=== PATIENT | female | born 1960 | race Caucasian/White ===

== ENCOUNTER 2024-10-07 17:59 | Day surgery (SDC) | payer MEDICARE, SELFPAY ==
--- OUTSIDE RECORDS SUMMARY | 2024-10-07 16:20 | XMS_ITS | Encounter Summary ---
Author Organization [facility] Address [address] [place] [address] Care Team Providers Care Director Of Residence Life Name Role Phone Consuelo Rand Carl POTTER Primary Care Provider Reason for Visit * Reason Comments Chest Pain Encounter Details Date Type Department Care Team (Late st Contact Info) Description 10/07/2024 4:20 PM CDT - 10/07/2024 5:25 PM CDT Emergency [facility] Emergency Medicine [address] [place] [phone] Elmer Botello DO [address] [place] [address] ST elevation myocardial infarction (STEMI), unspecified artery (CMS/HCC) (Primary Dx) Discharge Disposition: Acute Care Hospital Social History Tobacco Use Types Packs/Day Years Used Date Smoking Tobacco: Never Passive Smoke Exposure: Never Smokeless Tobacco: Never Alcohol Use Standard Drinks/Week Comments No 0 (1 standard drink = 0.6 oz pur e alcohol) Financial Resource Strain Answer Date R ecorded How hard is it for you to pa y for the very basics like food, housing, medical care, and heating? Not very hard 09/25/2021 Food Insecurity Answer Date Recorded In the past 12 months, have you worried that your food would run out before you had money to buy more? Never true 09/25/2021 In the past 12 months, did y ou run out of food and didn't have money to buy more? Never true 09/25/2021 Transportation Needs Answer Date Record ed In the past 12 months, has l ack of transportation kept you from medical appointments or from getting medications? No 09/25/2021 Lack of Transportation (Non-Medical) Not on file 09/25/2021 Feeling Safe Answer Date Recorded Are you in a relationship wi th someone who hurts you emotionally and/or physically? 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 Gender Identity Not on file Sexual Orientation Not on file documented as of this encounter Last Filed Vital Signs Vital Sign Reading Time Taken Comments Blood Pressure 157/86 10/07/2024 4:30 PM CDT Pulse 63 10/07/2024 4:30 PM CDT Temperature 36.1 C (96.9 F) 10/07/2024 2:54 PM CDT Respiratory Rate 21 10/07/2024 4:30 PM CDT Oxygen Saturation 95% 10/07/2024 4:30 PM CDT Inhaled Oxygen Concentration - - Weight 91.6 kg (202 lb) 10/07/2024 2:54 PM CDT Height 165.1 cm (5' 5 ) 10/07/2024 2:54 PM CDT Body Mass Index 33.61 10/07/2024 2:54 PM CDT documented in this encounter Medications at Time of Discharge dilTIAZem (CARDIZEM CD) 360 mg Controlled Delivery 24 hour capsule TAKE ONE CAPSULE (360 MG) BY MOUTH DAILY. 90 Capsule 4 09/21/2024 rosuvastatin (CRESTOR) 5 mg tabletIndications:Mi xed hyperlipidemia Take 1 Tablet (5 mg) by mouth daily. 90 Tablet 4 09/21/2024 hydroCHLOROthiazide 25 mg tabletIndications:Es sential hypertension Take 1 Tablet (25 mg) by mouth daily. 90 Tablet 4 09/21/2024 mupirocin (BACTROBAN) 2 % OintmentIndications: Acute paronychia of toe, right Apply to affected area daily. 30 Gram 07/15/2024 hydrOXYzine HCL (ATARAX) 10 mg tabletIndications:Co ntact dermatitis due to poison talia Take 1 Tablet (10 mg) by mouth 3 times daily as needed for Itching. 30 Tablet 09/30/2023 aspirin (ECOTRIN EC) 81 mg Tablet, Delayed Release (E.C.) Take 81 mg by mouth daily. TURMERIC ORAL Take by mouth. 11/01/2019 Cranberry 500 mg Capsule Take 1 Cap by mouth daily. 11/21/2014 documented as of this encounter ED Notes * Rita Dutton RN - 10/07/2024 5:19 PM CDT Report given to EMS. * Tsering Alvarez RN - 10/07/2024 5:12 PM CDT Dispatch notified of patient transfer at this time. * Sherry Crawford RCP - 10/07/2024 4:45 PM CDT EKG completed. Results given to Dr. Botello and scanned into [employer]. * Rita Dutton RN - 10/07/2024 3:25 PM CDT Patient arrived to the ED via private vehicle complaining of chest pain that radiates to her left jaw and left arm pain. Patient states her pain started at 1100 today and it has not gotten better. Patient states she has no heart history but does have hypertension. Patient at bedside during this triage. * Sherry Crawford RCP - 10/07/2024 2:54 PM CDT EKG completed. Results given to Dr. Botello and scanned into [employer]. * Elmer Botello DO - 10/07/2024 2:47 PM CDT HISTORY OF PRESENT ILLNESS 64-year-old female female presents with onset of chest pain radiating to left jaw and left arm onset 11 AM this morning. She is also admits some chest pressure. She denies any nausea or vomiting. Shedoes have a history of hypertension hyperlipidemia and history of MRSA. History provided by: The patient and a significant other Chest Pain PAST MEDICAL HISTORY REVIEWED MEDICAL: Patient has a past medical history of Depression, Generalized headaches, HTN (hypertension) (2007),Joint pain, Migraines, MRSA (methicillin resistant staph aureus) culture positive (11/14/2015), and Night sweats. SURGICAL: Patient has a past surgical history that includes cholecystectomy (1999); surgical other; hysterectomy (1999); and core needle breast biopsy (Bilateral, 07/02/2019). ALLERGIES Patient has no known allergies. PHYSICAL EXAM INITIAL VS BP: (!) 163/87 (10/07/24 1454), Heart Rate: 66 bpm (10/07/24 1454), Resp: 20 (10/07/24 1454), Pulse: 63 (10/07/24 1630), Temp: 96.9 ??F (36.1 ??C) (10/07/24 1454), Temp src: Temporal (10/07/24 1454),SpO2: 99 % (10/07/24 1454), Height: 5' 5 (165.1 cm) (10/07/24 1454), Weight: 91.6 kg (202 lb) (10/07/24 1454), BMI (Calculated): (!) 33.6 (10/07/24 145) No LMP recorded. Patient has had a hysterectomy. Physical Exam Vitals and nursing note reviewed. Constitutional: General: She is not in acute distress. Appearance: Normal appearance. She is normal weight. She is not ill-appearing, toxic-appearing or diaphoretic. HENT: Head: Normocephalic and atraumatic. Right Ear: External ear normal. Left Ear: External ear normal. Nose: Nose normal. Mouth/Throat: Mouth: Mucous membranes are moist. Eyes: General: No scleral icterus. Extraocular Movements: Extraocular movements intact. Conjunctiva/sclera: Conjunctivae normal. Cardiovascular: Rate and Rhythm: Normal rate and regular rhythm. Pulses: Normal pulses. Heart sounds: Normal heart sounds. Pulmonary: Effort: Pulmonary effort is normal. Breath sounds: Normal breath sounds. No stridor. No wheezing. Musculoskeletal: General: No deformity. Normal range of motion. Cervical back: Normal range of motion. Right lower leg: No edema. Left lower leg: No edema. Skin: General: Skin is warm and dry. Capillary Refill: Capillary refill takes less than 2 seconds. Findings: No bruising or erythema. Neurological: General: No focal deficit present. Mental Status: She is alert and oriented to person, place, and time. Psychiatric: Mood and Affect: Mood normal. Behavior: Behavior normal. DIAGNOSTICS LAB: CBC WITH DIFFERENTIAL - Abnormal Result Value WBC 8.9 RBC 4.66 HEMOGLOBIN 14.0 HEMATOCRIT 42.5 MCV 91.2 MCH 30.0 MCHC 32.9 RDW 13.2 RDW-STDEV 44.3 PLATELETS 262 MPV 9.6 (*) NEUTROPHILS 78 (*) LYMPHOCYTES 15 (*) MONOCYTES 6 EOSINOPHILS 1 BASOPHILS 1 IMMATURE GRANULOCYTES 0 NEUTROPHIL ABSOLUTE 6.93 (*) LYMPHOCYTE ABSOLUTE 1.33 MONOCYTE ABSOLUTE 0.49 (*) EOSINOPHIL ABSOLUTE 0.05 BASOPHILS ABSOLUTE 0.09 (*) IMMATURE GRANULOCYTES ABSOLUTE 0.03 COMPREHENSIVE METABOLIC PANEL - Abnormal SODIUM 139 POTASSIUM 3.9 CHLORIDE 102 CO2 24 CALCIUM 9.6 BUN 15 CREATININE 0.80 GLUCOSE 129 (*) TOTAL PROTEIN 7.4 ALBUMIN 4.3 BILIRUBIN TOTAL 0.4 ALKALINE PHOSPHATASE 93 AST 26 ALT 15 GFR >60 ANION GAP 13 TROPONIN BASELINE, 5TH GEN - Abnormal TROPONIN T, BASELINE 5TH GEN 383 (*) BRAIN NATRIURETIC PEPTIDE, BNP OR PROBNP - Abnormal PROBNP, N TERMINAL 578 (*) PT AND APTT - Normal PROTIME 13.0 INR 1.0 PTT 25.7 CBC WITH DIFFERENTIAL BASIC METABOLIC PANEL TROPONIN 2 HR, 5TH GEN PTT RADIOLOGY: XR CHEST PA OR AP 1 VW Radiologist Impression Impression: No evidence of infiltrates. EKG: PROCEDURES Procedures MEDICAL DECISION MAKING AND PLAN OF CARE Medical Decision Making 64-year-old female presents today with acute onset of chest pain with radiation to left jaw and armat approximately 11 AM. Symptoms concerning for ACS. Lab work with elevated baseline troponin at 383, elevated proBNP greater than 500, initial EKG without ST segment changes, on repeat ST segment changes present. Discussed transfer with cardiology at [facility]. Excepted for transfer, Dr. Charles cardiologyand Dr. Iverson ED to ED Amount and/or Complexity of Data Reviewed Labs: ordered. Radiology: ordered. ECG/medicine tests: ordered. Risk OTC drugs. Prescription drug management. MDM Consults: cardiology Time help desk engineer paged: 10/07/2024 4:55 PM Name of help desk engineer: Araceli Discussion with help desk engineer: Accepted for ED to ED with transfer to civil laboratory technician. Medications Administered During the ED Stay from 10/07/2024 1447 to 10/07/2024 1716 Date/Time Order Dose Route Action 10/07/2024 1652 CDT aspirin (WAYNE CHEWABLE) chewable tablet 324 mg 324 mg Oral Given 10/07/2024 1652 CDT heparin injection 1,500 Units 1,500 Units IV Given . New Prescriptions for this Encounter LAST VS BP: (!) 157/86 (10/07/24 1630), Heart Rate: 64 bpm (10/07/24 1630), Resp: 21 (10/07/24 1630), Pulse: 63 (10/07/24 1630), Temp: 96.9 ??F (36.1 ??C) (10/07/24 1454), Temp src: Temporal (10/07/24 1454),SpO2: 95 % (10/07/24 1630) CLINICAL IMPRESSION Final diagnoses: [I21.3] ST elevation myocardial infarction (STEMI), unspecified artery (CMS/HCC) (Primary) DISPOSITION, EDUCATION AND MEDICATION RECONCILIATION Medications reconciled. See after visit summary for patient education on discharged patients. ED Disposition ED Disposition Transfer Condition Stable User Elmer Botello DO Date/Time Leticia Oct 07, 2024 5:06 PM Comment -- ATTESTATION STATEMENTS documented in this encounter Miscellaneous Notes * Treatment Plan - Jake Schaefer, PHARMACIST - 10/07/2024 5:22 PM CDT [facility] Adult Heparin PTT Monitoring Protocol [facility] ORDERS ARE ENTERED ???PER PROTOCOL?? Nursing Orders: Heparin must be hung as primary IV on dedicated IV site, unless discussed with physician and exception is authorized Obtain an actual weight, not stated weight, for pharmacy verification Do not give IM injections unless credentialed prescriber is alerted and chooses to proceed. Exception: Patient may receive vaccinations without contacting provider. RN to hold pressure to site post administration for 2 minutes Call credentialed prescriber for any evidence of hematoma, decrease in hemoglobin of 2 gram/dL or more, or with any acute change in mental status When programming the smart pump, refer to weight in eMAR order (this may not correlate with patient's current weight) Verify weight in eMAR order matches weight in smartpump Enter actual volume infused into flowsheet directly from smart pump upon clearing the pump volume Laboratory Orders: Baseline: PTT and CBC without differential if not obtained in the last 72 hours before starting IV Heparin Infusion monitoring: Timed PTT every 6 hours after the initiation of infusion, change in rate or bolus until 2 consecutive PTT are in therapeutic range PTT monitoring should be used instead of Anti-xa monitoring for the following: Facility only has PTT lab monitoring capabilities Patients who have received a Xa inhibitor Direct Oral Anticoagulant (DOAC) medication (rivaroxaban,apixaban, edoxaban), therapeutic Enoxaparin, or Fondaparinux within the last 48 hours Daily once stable: PTT daily while on heparin once stable Minimum every 3 days: CBC without differential drawn at minimum of every 3 days while on heparin Medication Orders: Discontinue ALL other orders for subcutaneous, oral or IV anticoagulants, for example but not limited to: enoxaparin (LOVENOX), or fondaparinux (ARIXTRA) or oral anticoagulants dabigatran (PRADAXA), apixaban (ELIQUIS), edoxaban (SAVAYSA) or rivaroxaban (XARELTO). This protocol is not recommended for use with continuous alteplase infusions. Contact provider for additional orders. Pharmacist to confirm indication to ensure correct protocol table is followed, if unclear from the physician order or via chart review Pharmacist to verify heparin rate changes based on lab results in the protocol tables below. Pharmacist may update the order and MAR to match the current infusion rate. Dosing Weight: Obtain using a scale, NOT stated weight order-specific heparin dosing weight to be calculated by pharmacist. If weight <= 100 kg, ACTUAL body weight will be used to perform dose calculations If weight exceeds 100 kg, an ADJUSTED body weight will be used to perform dose calculations Initial dosing weight to be used for heparin infusion for the duration of therapy. Caution should be used by the RN to observe that this is the weight programmed in the smart pump. DVT/PE Heparin Infusion (usual indication for VTE: PE/DVT) Per provider order - bolus or no bolus Adjusted body weight used for pts >100 kg Initial Bolus Dose 80 units/kg (MAX 10,000 units) Initial Infusion 18 units/kg/hour PTT Bolus (if boluses are authorized by physician per infusion order) Hold Infusion IV infusion Change Next Level Less than 45 60 units/kg 0 min Increase heparin dose by 3 units/kg/hr 6 hours 45-54 30 units/kg 0 min Increase heparin dose by 2 units/kg/hr 6 hours 54.1-93 NO CHANGE Every 6 hours x 2 then every AM 93.1-103 none 0 min Decrease heparin dose by 1 units/kg/hr 6 hours 103.1-112 none 30 min Decrease heparin dose by 2 units/kg/hr 6 hours Greater than 112 none 60 min Decrease heparin dose by 3 units/kg/hr 6 hours Cardiac Heparin Infusion (usual indication: Atrial fibrillation, mechanical valves, ACS, high bleedrisk) Per provider order - bolus or no bolus Adjusted body weight used for pts >100 kg Initial Bolus Dose Atrial fibrillation, mechanical valves, high bleed risk: 60 units/kg (MAX 7500 units) ACS: 60 units/kg (MAX 4000 units) Initial Infusion Atrial fibrillation, mechanical valves, high bleed risk: 15 units/kg/hour ACS: 12 units/kg/hour (MAX 1000 units/hour) PTT Bolus (if boluses are authorized by physician per infusion order) Hold Infusion IV infusion Change Next Level Less than 45 30 units/kg 0 min Increase heparin dose by 2 units/kg/hr 6 hours 45-54 15 units/kg 0 min Increase heparin dose by 1 units/kg/hr 6 hours 54.1-84 NO CHANGE Every 6 hours x 2 then every AM 84.1-93 none 0 min Decrease heparin dose by 1 units/kg/hr 6 hours 93.1-112 none 30 min Decrease heparin dose by 2 units/kg/hr 6 hours Greater than 112 none 60 min Decrease heparin dose by 3 units/kg/hr 6 hours documented in this encounter Plan of Treatment Upcoming Encounters Date Type Department Care Team (Late st Contact Info) Description 09/21/2025 8:40 AM CDT Office Visit [facility] [address] [place] [phone] Consuelo Rand, DO [address] [facility] [place] [phone] Scheduled Orders Name Type Priority Associated Diagnoses Order Schedule PULSE OXIMETRY, CONTINUOUS Respiratory Care Routine Continuous unti l discontinued starting 10/07/2024 CBC WITH DIFFERENTIAL Lab Routine ONE TIME COLLECT NOW for 1 Occurrences starting 10/07/2024 until 10/07/2024 BASIC METABOLIC PANEL Lab Routine ONE TIME COLLECT NOW for 1 Occurrences starting 10/07/2024 until 10/07/2024 TROPONIN 6 HR, 5TH GEN Lab Timed Study ONE TIME for 1 Occurrences starting 10/07/2024 until 10/07/2024 TROPONIN 2 HR, 5TH GEN Lab Timed Study ONE TIME for 1 Occurrences starting 10/07/2024 until 10/07/2024 PTT Lab Routine ONE TIME COLLE CT NOW for 1 Occurrences starting 10/07/2024 until 10/07/2024 documented as of this encounter Procedures Procedure Name Priority Date/Time Associated Diagnosis Comments XR CHEST PA OR AP 1 VW Stat 4:52 PM CDT TROPONIN BASELINE, 5TH GEN Stat 10/07/2024 3:45 PM CDT PT AND APTT Stat 10/07/2024 3:45 PM CDT CBC WITH DIFFERENTIAL Stat 10/07/2024 3:45 PM CDT BRAIN NATRIURETIC PEPTIDE, BNP OR PROBNP Stat 10/07/2024 3:45 PM CDT COMPREHENSIVE METABOLIC PANEL Stat 10/07/2024 3:45 PM CDT documented in this encounter Results * XR CHEST PA OR AP 1 VW (10/07/2024 4:52 PM CDT) Anatomical Region Laterality Modality Chest Computed Radiogr aphy 10/07/2024 4:52 PM CDT Impressions 10/07/2024 4:57 PM CDT Impression: No evidence of infiltrates. Narrative 10/07/2024 4:57 PM CDT Exam: XR CHEST PA OR AP 1 VW Date/Time of Exam: 10/07/2024 4:52 PM Reason For Exam: Chest Pain Diagnosis: See Reason for Exam The heart size is normal. The lungs are clear. No pneumothorax is seen. Procedure Note Rolando Gaspar MD - 10/07/2024 Exam: XR CHEST PA OR AP 1 VW Date/Time of Exam: 10/07/2024 4:52 PM Reason For Exam: Chest Pain Diagnosis: See Reason for Exam The heart size is normal. The lungs are clear. No pneumothorax is seen. Impression: No evidence of infiltrates. [employer] [facility] DIAGNOSTIC IMAGING ORDERABLES Final Result * (ABNORMAL) BRAIN NATRIURETIC PEPTIDE, BNP OR PROBNP (10/07/2024 3:45 PM CDT) PROBNP, N TERMINAL 578(H) 0 - 125 pg/mL 10/07/2024 4:39 PM CDT [facility] Comment: INTERPRETIVE COMMENT based on diagnosis: Diagnostic NT pro-BNP cutoffs for Heart Failure in the absence of renal failure is suggested for the following ranges <75 years: <125 pg/mL >=75 years: <450 pg/mL Exclusionary rule out cut-point for Acute Decompensated Heart Failure(ADHF) All ages: <300 pg/mL Diagnostic NT pro-BNP cutoffs for Acute Decompensated Heart Failure(ADHF) in the absence of renal failure is suggested for the following ages <50 years: > 450 pg/mL 50-75 years: > 900 pg/mL >75 years: >1800 pg/mL Blood BLOOD SPECIMEN / Unknown Collection / Unknown 10/07/2024 3:45 PM CDT 10/07/2024 4:00 PM CDT [employer] [facility] CHEMISTRY ORDERABLES Final Re sult [facility] CLIA # [id number] [address] [place] [id number] * PT AND APTT (10/07/2024 3:45 PM CDT) PROTIME 13.0 12.1 - 14.3 Seconds 10/07/2024 4:34 PM CDT [facility] INR 1.0 0.9 - 1.1 10/07/2024 4:34 PM CDT [facility] PTT 25.7 25.1 - 35.4 seconds 10/07/2024 4:34 PM CDT [facility] Blood BLOOD SPECIMEN / Unknown Collection / Unknown 10/07/2024 3:45 PM CDT 10/07/2024 4:25 PM CDT us Elmer Botello DO HEMATOLOGY ORDERABLES Final R esult Performing Organization Address [facility]/ZIP Co de Phone Number [facility] CLIA # [id number] [address] [place] [id number] * (ABNORMAL) TROPONIN BASELINE, 5TH GEN (10/07/2024 3:45 PM CDT) [facility] TROPONIN T, BASELINE 5TH GEN 383(HH) <=10 ng/L 10/07/2024 4:18 PM CDT [facility] Blood BLOOD SPECIMEN / Unknown Collection / Unknown 10/07/2024 3:45 PM CDT 10/07/2024 4:00 PM CDT Narrative [facility] - 10/07/2024 4:18 PM CDT Troponin elevated. us Elmer Botello DO CHEMISTRY ORDERABLES Final Re sult [facility] CLIA # [id number] [address] [place] [id number] * (ABNORMAL) COMPREHENSIVE METABOLIC PANEL (10/07/2024 3:45 PM T) SODIUM 139 136 - 145 mmol/L 10/07/2024 4:17 PM [facility] POTASSIUM 3.9 3.5 - 5.1 mmol/L 10/07/2024 4:17 PM [facility] CHLORIDE 102 98 - 107 mmol/L 10/07/2024 4:17 PM [facility] CO2 24 22 - 29 mmol/L 10/07/2024 4:17 PM [facility] CALCIUM 9.6 8.8 - 10.2 mg/dL 10/07/2024 4:17 PM [facility] BUN 15 8 - 23 mg/dL 10/07/2024 4:17 PM [facility] CREATININE 0.80 0.51 - 0.95 mg/dL 10/07/2024 4:17 PM [facility] GLUCOSE 129(H) 74 - 99 mg/dL 10/07/2024 4:17 PM [facility] TOTAL PROTEIN 7.4 6.6 - 8.7 g/dL 10/07/2024 4:17 PM [facility] ALBUMIN 4.3 3.5 - 5.2 g/dL 10/07/2024 4:17 PM [facility] BILIRUBIN TOTAL 0.4 0.0 - 1.2 mg/dL 10/07/2024 4:17 PM [facility] ALKALINE PHOSPHATASE 93 35 - 104 U/L 10/07/2024 4:17 PM [facility] AST 26 0 - 35 U/L 10/07/2024 4:17 PM [facility] ALT 15 0 - 35 U/L 10/07/2024 4:17 PM [facility] GFR >60 >=60 mL/min/1.7 3 sq meter 10/07/2024 4:17 PM [facility] Comment:eGFR calculated with 2020 CKD-EPI equation. Vegetarian diet, extremely high or low muscle mass, and may affect results. Cystatin C with Glomerular Filtration Rate is a suitable alternative for these patients. ANION GAP 13 5 - 20 mmol/L 10/07/2024 4:17 PM CDT [facility] Blood BLOOD SPECIMEN / Unknown Collection / Unknown 10/07/2024 3:45 PM CDT 10/07/2024 4:00 PM CDT us Elmer Botello DO CHEMISTRY ORDERABLES Final Re sult [facility] CLIA # [id number] [address] [place] [address] * (ABNORMAL) CBC WITH DIFFERENTIAL (10/07/2024 3:45 PM CDT) WBC 8.9 4.0 - 10.0 K/uL 10/07/2024 4:03 PM [facility] RBC 4.66 3.93 - 5.22 M/uL 10/07/2024 4:03 PM [facility] HEMOGLOBIN 14.0 11.2 - 15.7 g/dL 10/07/2024 4:03 PM [facility] HEMATOCRIT 42.5 34.1 - 44.9 % 10/07/2024 4:03 PM [facility] MCV 91.2 79.4 - 94.8 fL 10/07/2024 4:03 PM [facility] MCH 30.0 25.6 - 32.2 pg 10/07/2024 4:03 PM [facility] MCHC 32.9 32.2 - 35.5 g/dL 10/07/2024 4:03 PM [facility] RDW 13.2 11.0 - 14.5 % 10/07/2024 4:03 PM [facility] RDW-STDEV 44.3 36.9 - 56.9 fL 10/07/2024 4:03 PM [facility] PLATELETS 262 163 - 337 K/uL 10/07/2024 4:03 PM [facility] MPV 9.6(L) 10.0 - 14.8 fL 10/07/2024 4:03 PM CDT [facility] NEUTROPHILS 78(H) 34 - 71 % 10/07/2024 4:03 PM [facility] LYMPHOCYTES 15(L) 19 - 52 % 10/07/2024 4:03 PM [facility] MONOCYTES 6 5 - 13 % 10/07/2024 4:03 PM T [facility] EOSINOPHILS 1 1 - 6 % 10/07/2024 4:03 PM T [facility] BASOPHILS 1 0 - 1 % 10/07/2024 4:03 PM CDT [facility] IMMATURE GRANULOCYTES 0 % 10/07/2024 4:03 PM [facility] NEUTROPHIL ABSOLUTE 6.93(H) 1.56 - 6.13 K/uL 10/07/2024 4:03 PM T [facility] LYMPHOCYTE ABSOLUTE 1.33 1.20 - 3.40 K/uL 10/07/2024 4:03 PM T [facility] MONOCYTE ABSOLUTE 0.49(H) 0.24 - 0.36 K/uL 10/07/2024 4:03 PM CDT [facility] EOSINOPHIL ABSOLUTE 0.05 0.04 - 0.36 K/uL 10/07/2024 4:03 PM [facility] BASOPHILS ABSOLUTE 0.09(H) 0.01 - 0.08 K/uL 10/07/2024 4:03 PM [facility] IMMATURE GRANULOCYTES ABSOLUTE 0.03 K/uL 10/07/2024 4:03 PM [facility] Blood BLOOD SPECIMEN / Unknown Collection / Unknown 10/07/2024 3:45 PM CDT 10/07/2024 4:00 PM CDT us Elmer Botello DO HEMATOLOGY ORDERABLES Final R esult [facility] CLIA # [id number] [address] [place] [id number] documented in this encounter Visit Diagnoses Diagnosis ST elevation myocardial infarction (STEMI), unspecified artery ([facility])- Primary documented in this encounter Administered Medications Active Administered Medications - up to 3 most recent administrations Medication Order MAR Action Action Date Dose Rate Site heparin in 0.45% NaCl 25,000 unit/250 mL infusion 10.9 Units/kg/hr 91.6 kg (9.9844 mL/hr, rounded to 10 mL/hr), IV, TITRATE, Starting on Leticia 10/07/24 at 1730, Until Discontinued, Indication: ACS/STEMI, Dosing by: PER PROTOCOL: Delegate to facility protocol per indication, Re-bolus within Protocol? No, titrate infusion ONLY New Bag 10/07/2024 5:26 PM CDT 10.9 Units/kg/hr 10 mL/hr Inactive Administered Medications - up to 3 most recent administrations Medication Order MAR Action Action Date Dose Rate Site aspirin (WAYNE CHEWABLE) chewable tablet 324 mg 324 mg, Oral, ONE TIME ONLY, 1 dose, On Leticia 10/07/24 at 1630, Routine Given 10/07/2024 4:52 PM CDT 324 mg clopidogreL (PLAVIX) tablet 600 mg 600 mg, Oral, ONE TIME ONLY, 1 dose, On Leticia 10/07/24 at 1715, Routine Given 10/07/2024 5:19 PM CDT 600 mg heparin injection 1,500 Units 1,500 Units (rounded from 1,374 Units = 15 Units/kg 91.6 kg), IV, ONE TIME ONLY, 1 dose, On Leticia 10/07/24 at 1700, Routine Given 10/07/2024 4:52 PM CDT 1,500 Units documented in this encounter Active and Recently Administered Medications Times are shown in CDT. Scheduled Medication Order 10/05/2024 10/06/2024 10/07/2024 aspirin (WAYNE CHEWABLE) chewable tablet 324 mg (COMPLETED) 324 mg, Oral, ONE TIME ONLY, 1 dose, On Leticia 10/07/24 at 1630, Routine 1652 (Given - Provid er: Rita Dutton RN) clopidogreL (PLAVIX) tablet 600 mg (COMPLETED) 600 mg, Oral, ONE TIME ONLY, 1 dose, On Leticia 10/07/24 at 1715, Routine 1719 (Given - Provid er: Rhonda Giles RN) heparin injection 1,500 Units (COMPLETED) 1,500 Units (rounded from 1,374 Units = 15 Units/kg 91.6 kg), IV, ONE TIME ONLY, 1 dose, On Leticia 10/07/24 at 1700, Routine 1652 (Given - Provid er: Rita Dutton, DALILA) Continuous Medication Order 10/05/2024 10/06/2024 10/07/2024 heparin in 0.45% NaCl 25,000 unit/250 mL infusion 10.9 Units/kg/hr 91.6 kg (9.9844 mL/hr, rounded to 10 mL/hr), IV, TITRATE, Starting on Leticia 10/07/24 at 1730, Until Discontinued, Indication: ACS/STEMI, Dosing by: PER PROTOCOL: Delegate to facility protocol per indication, Re-bolus within Protocol? No, titrate infusion ONLY 1726 (New Bag - Prov ider: Rhonda Giles RN) documented in this encounter Care Teams Director Of Residence Life Relationship Specialty Start Date End Date Consuelo Rand DO [address] [place] [address] PCP - General 07/19/20 documented as of this encounter
--- OUTSIDE RECORDS SUMMARY | 2024-10-07 16:20 | XMS_ITS | Encounter Summary ---
Author Organization [facility] Address [address] [place] [address] Care Team Providers Care Environmental Geologist Name Role Phone Keyona, Consuelo Carl POTTER Primary Care Provider [phone]- [phone] Reason for Visit * Reason Comments Chest Pain Encounter Details Date Type Department Care Team (Late st Contact Info) Description 10/07/2024 4:20 PM CDT - Present Emergency [facility] Emergency Medicine [address] [place] [id number] Elmer Botello DO [address] [place] [address] ST elevation myocardial infarction (STEMI), unspecified artery (CMS/HCC) (Primary Dx) Social History Tobacco Use Types Packs/Day Years [...] on file 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 Results given to Dr. Botello and scanned into [employer]. * Rita Dutton RN - 10/07/2024 3:25 [...] given to Dr. Botello and scanned into [employer]Who. documented in this encounter Plan of Treatment Upcoming Encounters Date Type Department Care Team (Late st Contact Info) Description 09/21/2025 8:40 AM CDT Office Visit [facility] [address] [place] [address] Consuelo Rand, DO [address] [place] [phone] Scheduled Orders Name Type Priority Associated Diagnoses [...] 10/07/2024 documented as of this encounter Procedures * The patient is currently admitted. The information in this section might not be complete until the patient is discharged. Procedure Name Priority Date/Time Associated Diagnosis Comments [...] is seen. Impression: No evidence of infiltrates. Elmer Botello DO DIAGNOSTIC IMAGING ORDERABLES Final Result * (ABNORMAL) BRAIN NATRIURETIC PEPTIDE, BNP OR PROBNP (10/07/2024 3:45 PM CDT) PROBNP, N TERMINAL 578(H) 0 - 125 pg/mL 10/07/2024 4:39 PM CDT [facility] Comment: INTERPRETIVE COMMENT based on diagnosis: [...] Botello DO CHEMISTRY ORDERABLES Final Re sult [facility] CLIA # [id number] [address] [place] [address] * PT AND APTT (10/07/2024 3:45 PM CDT) PROTIME 13.0 12.1 - 14.3 Seconds 10/07/2024 4:34 PM CDT [facility] INR 1.0 0.9 - 1.1 10/07/2024 4:34 PM CDT [facility] PTT 25.7 25.1 - 35.4 seconds 10/07/2024 4:34 PM CDT [facility] Blood BLOOD SPECIMEN / Unknown Collection / Unknown 10/07/2024 3:45 PM CDT 10/07/2024 4:25 PM CDT us Elmer Botello DO HEMATOLOGY ORDERABLES Final R esult Performing Organization Address City/[facility]/ZIP Co de Phone Number [facility] CLIA # [id number] [address] [place] [phone] * (ABNORMAL) TROPONIN BASELINE, 5TH GEN (10/07/2024 3:45 PM CDT) TROPONIN T, BASELINE 5TH GEN 383(HH) <=10 ng/L 10/07/2024 4:18 PM CDT [facility] Blood BLOOD SPECIMEN / Unknown Collection / Unknown 10/07/2024 3:45 PM CDT 10/07/2024 4:00 PM CDT Narrative [facility] - 10/07/2024 4:18 PM CDT Troponin elevated. us Elmer Botello DO CHEMISTRY ORDERABLES Final Re sult [facility] CLIA # [id number] [address] [place] [phone] * (ABNORMAL) COMPREHENSIVE METABOLIC PANEL (10/07/2024 3:45 PM CDT) SODIUM 139 136 - 145 mmol/L 10/07/2024 4:17 PM [facility] POTASSIUM 3.9 3.5 - 5.1 mmol/L 10/07/2024 4:17 PM [facility] CHLORIDE 102 98 - 107 mmol/L 10/07/2024 4:17 PM [facility] CO2 24 22 - 29 mmol/L 10/07/2024 4:17 PM [facility] CALCIUM 9.6 8.8 - 10.2 mg/dL 10/07/2024 4:17 PM [facility] BUN 15 8 - 23 mg/dL 10/07/2024 4:17 PM [facility] CREATININE 0.80 0.51 - 0.95 mg/dL 10/07/2024 4:17 PM [facility] GLUCOSE 129(H) 74 - 99 mg/dL 10/07/2024 4:17 PM [facility] TOTAL PROTEIN 7.4 6.6 - 8.7 g/dL 10/07/2024 4:17 PM [facility] ALBUMIN 4.3 3.5 - 5.2 g/dL 10/07/2024 4:17 PM [facility] BILIRUBIN TOTAL 0.4 0.0 - 1.2 mg/dL 10/07/2024 4:17 PM [facility] ALKALINE PHOSPHATASE 93 35 - 104 U/L 10/07/2024 4:17 PM [facility] AST 26 0 - 35 U/L 10/07/2024 4:17 PM [facility] ALT 15 0 - 35 U/L 10/07/2024 4:17 PM [facility] GFR >60 >=60 mL/min/1.7 3 sq meter 10/07/2024 4:17 PM [facility] Comment:eGFR calculated with 2020 CKD-EPI equation. Vegetarian diet, extremely high or low muscle mass, and may affect results. Cystatin C with Glomerular Filtration Rate is a suitable alternative for these patients. ANION GAP 13 5 - 20 mmol/L 10/07/2024 4:17 PM [facility] Blood BLOOD SPECIMEN / Unknown Collection / Unknown 10/07/2024 3:45 PM CDT 10/07/2024 4:00 PM CDT us Elmer Botello DO CHEMISTRY ORDERABLES Final Re sult [facility] CLIA # [id number] [address] [place] [phone] * (ABNORMAL) CBC WITH DIFFERENTIAL (10/07/2024 3:45 PM CDT) WBC 8.9 4.0 - 10.0 K/uL 10/07/2024 4:03 PM [facility] RBC 4.66 3.93 - 5.22 M/uL 10/07/2024 4:03 PM [facility] HEMOGLOBIN 14.0 11.2 - 15.7 g/dL 10/07/2024 4:03 PM [facility] HEMATOCRIT 42.5 34.1 - 44.9 % 10/07/2024 4:03 PM [facility] MCV 91.2 79.4 - 94.8 fL 10/07/2024 4:03 PM [facility] MCH 30.0 25.6 - 32.2 pg 10/07/2024 4:03 PM [facility] MCHC 32.9 32.2 - 35.5 g/dL 10/07/2024 4:03 PM [facility] RDW 13.2 11.0 - 14.5 % 10/07/2024 4:03 PM [facility] RDW-STDEV 44.3 36.9 - 56.9 fL 10/07/2024 4:03 PM [facility] PLATELETS 262 163 - 337 K/uL 10/07/2024 4:03 PM [facility] MPV 9.6(L) 10.0 - 14.8 fL 10/07/2024 4:03 PM [facility] NEUTROPHILS 78(H) 34 - 71 % 10/07/2024 4:03 PM [facility] LYMPHOCYTES 15(L) 19 - 52 % 10/07/2024 4:03 PM [facility] MONOCYTES 6 5 - 13 % 10/07/2024 4:03 PM [facility] EOSINOPHILS 1 1 - 6 % 10/07/2024 4:03 PM [facility] BASOPHILS 1 0 - 1 % 10/07/2024 4:03 PM [facility] IMMATURE GRANULOCYTES 0 % 10/07/2024 4:03 PM [facility] NEUTROPHIL ABSOLUTE 6.93(H) 1.56 - 6.13 K/uL 10/07/2024 4:03 PM [facility] LYMPHOCYTE ABSOLUTE 1.33 1.20 - 3.40 K/uL 10/07/2024 4:03 PM [facility] MONOCYTE ABSOLUTE 0.49(H) 0.24 - 0.36 K/uL 10/07/2024 4:03 PM [facility] EOSINOPHIL ABSOLUTE 0.05 0.04 - 0.36 K/uL 10/07/2024 4:03 PM [facility] BASOPHILS ABSOLUTE 0.09(H) 0.01 - 0.08 K/uL 10/07/2024 4:03 PM [facility] IMMATURE GRANULOCYTES ABSOLUTE 0.03 K/uL 10/07/2024 4:03 PM [facility] Blood BLOOD SPECIMEN / Unknown Collection / Unknown 10/07/2024 3:45 PM CDT 10/07/2024 4:00 PM CDT us Elmer Botello DO HEMATOLOGY ORDERABLES Final R esult [facility] CLIA # [id number] [address] [place] [address] documented in this encounter Visit Diagnoses Diagnosis ST elevation myocardial infarction (STEMI), unspecified artery (CMS/HCC)- Primary documented in this encounter Administered Medications Inactive Administered Medications - up to 3 most recent administrations Medication Order MAR Action Action Date Dose Rate Site aspirin (WAYNE CHEWABLE) chewable tablet 324 mg 324 mg, Oral, ONE TIME ONLY, 1 dose, On Leticia 10/07/24 at 1630, Routine Given 10/07/2024 4:52 PM CDT 324 mg heparin injection 1,500 Units 1,500 Units [...] (Given - Provid er: Rita Dutton RN) heparin injection 1,500 Units (COMPLETED) 1,500 Units (rounded from 1,374 Units = 15 Units/kg 91.6 kg), IV, ONE TIME ONLY, 1 dose, On Leticia 10/07/24 at 1700, Routine 1652 (Given - Provid er: Rita Dutton RN) documented in this encounter Care Teams Environmental Geologist Relationship Specialty Start Date End Date Consuelo Rand DO [address] [place] [address] PCP - General 07/19/20 documented as of this encounter
--- NOTE | 2024-10-07 17:03 | XRR_ITS ---
PROCEDURE INFORMATION: Exam: XR Chest Exam date and time: 10/07/2024 6:18 PM Age: 64 years old Clinical indication: Other: Stemi TECHNIQUE: Imaging protocol: Radiologic exam of the chest. Views: 1 view. COMPARISON: No relevant prior studies available. FINDINGS: Lungs: Central pulmonary vascular congestion with mild interstitial prominence. No focal consolidation. Pleural spaces: Unremarkable. No pleural effusion. No pneumothorax. Heart/Mediastinum: The heart appears mildly enlarged. Vasculature: Atherosclerotic aortic plaques. Diaphragm: Asymmetric elevation of the right hemidiaphragm. Bones/joints: Unremarkable. XR/XR chest 1V portable [id number] IMPRESSION: Mild cardiomegaly with central pulmonary vascular congestion and mild interstitial prominence which may reflect mild pulmonary edema.
--- NOTE | 2024-10-07 17:03 | ECG_ITS ---
[facility] Date: 2024-10-07 Pat Name: Nimo Sky Department: Room: Gender: Female Director Of Grants: : 1960 Requested By: Danny Henry Order Number: [id number] Reading MD: Measurements Intervals [place] Rate: 74 P: 76 OR: 209 QRS: -73 QRSD: 125 T: 54 QT: 399 QTc: 444 Interpretive Statements SINUS RHYTHM LEFT ANTERIOR FASCICULAR BLOCK [QRS AXIS <= -45, QR IN I, RS IN II] ANTEROLATERAL MYOCARDIAL INFARCTION , POSSIBLY ACUTE [40+ ms Q WAVE IN I/aVL/V3-V6] ACUTE ME No previous ECG available for comparison [email or web address]
--- OUTSIDE RECORDS SUMMARY | 2024-10-07 17:07 | XMS_ITS | Encounter Summary ---
Author Organization [facility] Address [address] [place] [address] Care Team Providers Care Plate Embosser Name Role Phone Consuelo Rand DO Primary Care Provider [phone] Reason for Referral * Radiology Services (Routine) - Closed Specialty Diagnoses / Procedures Referred By Jordon cox Referred To Contact Diagnoses Abnormal mammogram Procedures MAMMO BREAST US BIOPSY LEFT Consuelo Rand, DO [address] [place] [address] Phone: tel: fax: Referral ID Status Reason Start Date Expiration Date Visits Re quested Visits Authorized [id number] Closed 07/02/2019 08/01/2020 1 1 * Radiology Services (Routine) - Closed Specialty Diagnoses / Procedures Referred By Jordon cox Referred To Contact Radiology Diagnoses Abnormal mammogram Procedures MAMMO BREAST US BIOPSY RIGHT MAMMO BREAST US BIOPSY BILAT Consuelo Rand DO [address] [place] [address] Phone: tel: fax: [facility] [address] [facility] [address] Phone: tel: fax: Referral ID Status Reason Start Date Expiration Date Visits Re quested Visits Authorized [id number] Closed 06/16/2019 07/16/2020 1 1 Encounter Details Date Type Department Care Team (Late st Contact Info) Description 07/02/2019 Ancillary Orders [facility] [place] [address] [place] [id number] Consuelo Rand DO [address] [place] [address] Abnormal mammogram Social History Tobacco Use Types Packs/Day Years Used Date Smoking Tobacco: Never Alcohol Use Standard Drinks/Week Comments No 0 (1 standard drink = 0.6 oz pur e alcohol) Comments No Sex and Gender Information Value Date Recorded Sex Assigned at Not on file 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 [employer] Gender Identity Not on file Sexual Orientation Not on file COVID-19 Exposure Response Date Recorded In the last month, have you been in contact with someone who was confirmed or suspected to have Coronavirus / COVID-19? No / Unsure 07/02/2019 6:40 AM CDT documented as of this encounter Plan of Treatment Not on file documented as of this encounter Results * MAMMO BREAST US BIOPSY LEFT (07/02/2019 8:18 AM CDT) Anatomical Region Laterality Modality Breast Left Ultrasound Tissue SPECIMEN FROM BREAST / Unknown 07/02/2019 8:18 AM CDT Addenda Addendum by Josefina Segura DO on 07/05/2019 11:41 AM CDT RADIOLOGY/PATHOLOGY ADDENDUM: A. RIGHT breast, 9:00, 4 cm from nipple, ultrasound-guided core needle biopsy: The pathology result of benign dense breast parenchyma with mild chronic inflammation and fibrocystic change is BENIGN. This is CONCORDANT with imaging. B. LEFT breast, 2:30, 9 cm from nipple, ultrasound-guided core needle biopsy: The pathology result of benign dense breast parenchyma with benign microcalcifications and mild chronic inflammation is BENIGN. This is CONCORDANT with imaging. RECOMMENDATION: Bilateral diagnostic 3-D mammogram and left breast ultrasound follow-up in 6 months. [id number] Impressions 07/02/2019 10:07 AM CDT : Successful ultrasound-guided needle core biopsy of the bilateral breast masses as described above. Further recommendations will be based on pathology results. [id number] Narrative 07/02/2019 10:07 AM CDT BILATERAL BREAST ULTRASOUND-GUIDED NEEDLE CORE BIOPSIES INDICATION: 59-year-old female presents for ultrasound-guided biopsy of a 0.9 cm mass in the right breast at 9:00, 4 cm from the nipple and a 1.1 cm irregular mass in the left breast at 2:30, 9 cm from the nipple. PROCEDURE: Informed consent was obtained from the patient. A timeout was performed. She was placed on the ultrasound table. Site A: First, the right breast was prepped and draped in the usual sterile fashion. The 0.9 cm mass in the right breast at 9:00, 4 cm from the nipple is identified. The skin and subcutaneous tissue was anesthetized with 10 cc of 1% lidocaine. A small skin jennifer was made with a scalpel. Utilizing a 14-gauge spring-loaded core biopsy needle, several needle core specimens were obtained. Pre- and post-fire imaging showed that the needle was in accurate position. The needle was removed, and hemostasis was achieved. A coil-shaped marker was placed. Site B: Next, the left breast was prepped and draped in the usual sterile fashion. The 1.1 cm irregular mass in the left breast at 2:30, 9 cm from the nipple is identified. The skin and subcutaneous tissue was anesthetized with 8 cc of 1% lidocaine. A small skin jennifer was made with a scalpel. Utilizing a 14-gauge spring-loaded core biopsy needle, several needle core specimens were obtained. Pre- and post-fire imaging showed that the needle was in accurate position. The needle was removed, and hemostasis was achieved. A coil-shaped marker was placed. Post-procedure mammogram shows the markers in appropriate positions. Pressure dressing and ice pack were applied. There was no immediate complication. Verbal and written post-procedure instructions were given to the patient, and she was released in good condition. The core needle specimens were sent to surgical pathology. Procedure Note Josefina Segura, DO - 07/02/2019 BILATERAL BREAST ULTRASOUND-GUIDED NEEDLE CORE BIOPSIES INDICATION: 59-year-old female presents for ultrasound-guided biopsy of a 0.9 cm mass in the right breast at 9:00, 4 cm from the nipple and a 1.1 cm irregular mass in the left breast at 2:30, 9 cm from the nipple. PROCEDURE: Informed consent was obtained from the patient. A timeout was performed. She was placed on the ultrasound table. Site A: First, the right breast was prepped and draped in the usual sterile fashion. The 0.9 cm mass in the right breast at 9:00, 4 cm from the nipple is identified. The skin and subcutaneous tissue was anesthetized with 10 cc of 1% lidocaine. A small skin jennifer was made with a scalpel. Utilizing a 14-gauge spring-loaded core biopsy needle, several needle core specimens were obtained. Pre- and post-fire imaging showed that the needle was in accurate position. The needle was removed, and hemostasis was achieved. A coil-shaped marker was placed. Site B: Next, the left breast was prepped and draped in the usual sterile fashion. The 1.1 cm irregular mass in the left breast at 2:30, 9 cm from the nipple is identified. The skin and subcutaneous tissue was anesthetized with 8 cc of 1% lidocaine. A small skin jennifer was made with a scalpel. Utilizing a 14-gauge spring-loaded core biopsy needle, several needle core specimens were obtained. Pre- and post-fire imaging showed that the needle was in accurate position. The needle was removed, and hemostasis was achieved. A coil-shaped marker was placed. Post-procedure mammogram shows the markers in appropriate positions. Pressure dressing and ice pack were applied. There was no immediate complication. Verbal and written post-procedure instructions were given to the patient, and she was released in good condition. The core needle specimens were sent to surgical pathology. IMPRESSION: Successful ultrasound-guided needle core biopsy of the bilateral breast masses as described above. Further recommendations will be based on pathology results. [id number] Consuelo Rand DO MAMMO ORDERABLES Edited Res ult - Final * MAMMO BREAST US BIOPSY RIGHT (07/02/2019 8:17 AM CDT) Anatomical Region Laterality Modality Breast Right Ultrasound Tissue SPECIMEN FROM BREAST / Unknown 07/02/2019 8:18 AM CDT Addenda Addendum by Josefina Segura DO on 07/05/2019 11:41 AM CDT RADIOLOGY/PATHOLOGY ADDENDUM: A. RIGHT breast, 9:00, 4 cm from nipple, ultrasound-guided core needle biopsy: The pathology result of benign dense breast parenchyma with mild chronic inflammation and fibrocystic change is BENIGN. This is CONCORDANT with imaging. B. LEFT breast, 2:30, 9 cm from nipple, ultrasound-guided core needle biopsy: The pathology result of benign dense breast parenchyma with benign microcalcifications and mild chronic inflammation is BENIGN. This is CONCORDANT with imaging. RECOMMENDATION: Bilateral diagnostic 3-D mammogram and left breast ultrasound follow-up in 6 months. [id number] Impressions 07/02/2019 10:07 AM CDT : Successful ultrasound-guided needle core biopsy of the bilateral breast masses as described above. Further recommendations will be based on pathology results. [id number] Narrative 07/02/2019 10:07 AM CDT BILATERAL BREAST ULTRASOUND-GUIDED NEEDLE CORE BIOPSIES INDICATION: 59-year-old female presents for ultrasound-guided biopsy of a 0.9 cm mass in the right breast at 9:00, 4 cm from the nipple and a 1.1 cm irregular mass in the left breast at 2:30, 9 cm from the nipple. PROCEDURE: Informed consent was obtained from the patient. A timeout was performed. She was placed on the ultrasound table. Site A: First, the right breast was prepped and draped in the usual sterile fashion. The 0.9 cm mass in the right breast at 9:00, 4 cm from the nipple is identified. The skin and subcutaneous tissue was anesthetized with 10 cc of 1% lidocaine. A small skin jennifer was made with a scalpel. Utilizing a 14-gauge spring-loaded core biopsy needle, several needle core specimens were obtained. Pre- and post-fire imaging showed that the needle was in accurate position. The needle was removed, and hemostasis was achieved. A coil-shaped marker was placed. Site B: Next, the left breast was prepped and draped in the usual sterile fashion. The 1.1 cm irregular mass in the left breast at 2:30, 9 cm from the nipple is identified. The skin and subcutaneous tissue was anesthetized with 8 cc of 1% lidocaine. A small skin jennifer was made with a scalpel. Utilizing a 14-gauge spring-loaded core biopsy needle, several needle core specimens were obtained. Pre- and post-fire imaging showed that the needle was in accurate position. The needle was removed, and hemostasis was achieved. A coil-shaped marker was placed. Post-procedure mammogram shows the markers in appropriate positions. Pressure dressing and ice pack were applied. There was no immediate complication. Verbal and written post-procedure instructions were given to the patient, and she was released in good condition. The core needle specimens were sent to surgical pathology. Procedure Note Josefina Segura, DO - 07/02/2019 BILATERAL BREAST ULTRASOUND-GUIDED NEEDLE CORE BIOPSIES INDICATION: 59-year-old female presents for ultrasound-guided biopsy of a 0.9 cm mass in the right breast at 9:00, 4 cm from the nipple and a 1.1 cm irregular mass in the left breast at 2:30, 9 cm from the nipple. PROCEDURE: Informed consent was obtained from the patient. A timeout was performed. She was placed on the ultrasound table. Site A: First, the right breast was prepped and draped in the usual sterile fashion. The 0.9 cm mass in the right breast at 9:00, 4 cm from the nipple is identified. The skin and subcutaneous tissue was anesthetized with 10 cc of 1% lidocaine. A small skin jennifer was made with a scalpel. Utilizing a 14-gauge spring-loaded core biopsy needle, several needle core specimens were obtained. Pre- and post-fire imaging showed that the needle was in accurate position. The needle was removed, and hemostasis was achieved. A coil-shaped marker was placed. Site B: Next, the left breast was prepped and draped in the usual sterile fashion. The 1.1 cm irregular mass in the left breast at 2:30, 9 cm from the nipple is identified. The skin and subcutaneous tissue was anesthetized with 8 cc of 1% lidocaine. A small skin jennifer was made with a scalpel. Utilizing a 14-gauge spring-loaded core biopsy needle, several needle core specimens were obtained. Pre- and post-fire imaging showed that the needle was in accurate position. The needle was removed, and hemostasis was achieved. A coil-shaped marker was placed. Post-procedure mammogram shows the markers in appropriate positions. Pressure dressing and ice pack were applied. There was no immediate complication. Verbal and written post-procedure instructions were given to the patient, and she was released in good condition. The core needle specimens were sent to surgical pathology. IMPRESSION: Successful ultrasound-guided needle core biopsy of the bilateral breast masses as described above. Further recommendations will be based on pathology results. 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
--- OUTSIDE RECORDS SUMMARY | 2024-10-07 17:08 | XMS_ITS | Encounter Summary ---
Author Organization [facility] Address [address] [place] [address] Care Team Providers Care Currency Exchange Specialist Name Role Phone Consuelo Rand DO Primary Care Provider [phone] Reason for Referral * Radiology Services (Routine) - Closed Specialty Diagnoses / Procedures Referred By Conthay t Referred To Contact Radiology Diagnoses Abnormal breast finding Procedures MAMMO BREAST US BILAT LTD Consuelo Rand DO [address] [place] [address] Phone: tel: fax: [facility] [address] [address] Phone: tel: fax: Referral ID Status Reason Start Date Expiration Date Visits Requested Visits Authorized [id number] Closed Performing Department To Schedule (SGF) 06/02/2019 07/02/2020 1 1 NIC SCIENCES PROFESSOR * Radiology Services (Routine) - Closed Specialty Diagnoses / Procedures Referred By Conthay cox Referred To Contact Radiology Diagnoses Abnormal breast finding Procedures MAMMO DIAG BILAT 3D DARIO W OR WO CAD CHG DIAGNOSTIC MAMMOGRAPHY COMPUTER-AIDED DETCJ BI CHG DIGITAL BREAST TOMOSYNTHESIS BILATERAL Consuelo Rand DO [address] [place] [address] Phone: tel: fax: [facility] [address] [facility] [address] [place] [address] Phone: tel: fax: Referral ID Status Reason Start Date Expiration Date Visits Requested Visits Authorized [id number] Closed Performing Department To Schedule (SGF) 06/02/2019 07/02/2020 1 1 NIC SCIENCES PROFESSOR Encounter Details Date Type Department Care Team (Late st Contact Info) Description 06/02/2019 Ancillary Orders [facility] [address] [facility] [address] [place] [address] Consuelo Rand DO [address] [place] [phone] Abnormal breast finding Social History Tobacco Use Types Packs/Day Years Used Date Smoking Tobacco: Never Alcohol Use Standard Drinks/Week Comments No 0 (1 standard drink = 0.6 oz pur e alcohol) Comments No Sex and Gender Information Value Date Recorded Sex Assigned at Not on file 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 OCEANIC SCIENCES PROFESSOR Gender Identity Not on file Sexual Orientation Not on file documented as of this encounter Plan of Treatment Not on file documented as of this encounter Results * (ABNORMAL) [facility]AM[facility]AT [facility] (06/11/2019 2:51 PM OCEANIC SCIENCES PROFESSOR) Anatomical Region Laterality Modality Bilateral Ultrasound 06/11/2019 2:51 PM OCEANIC SCIENCES PROFESSOR Addenda Addendum by Josefina Segura DO on 06/18/2019 2:28 PM CDT ADDENDUM: Please note there is a typographical error in #3 of the impression on the original report. It should read: 3. Probably benign island of dense fibroglandular tissue in the LEFT breast at 2:00, 9 cm from the nipple for which SHORT INTERVAL FOLLOW-UP IS RECOMMENDED in 6 months with left diagnostic 3-D mammogram and left breast ultrasound. [id number] Impressions 06/14/2019 3:52 PM CDT : 1. Solid heterogeneous 0.9 cm mass in the RIGHT breast at 9:00, 4 cm from the nipple for which ultrasound-guided biopsy is recommended. 2. Hypoechoic 1.1 cm irregular mass in the LEFT breast at 2:30, 9 cm from the nipple for which ultrasound-guided biopsy is recommended. This appears to correspond to the mammographic mass. 3. Probably benign island of dense fibroglandular tissue in the LEFT breast at 2:00, 9 cm from the nipple for which ultrasound-guided biopsy is recommended in 6 months. 4. A complicated cyst in the subareolar LEFT breast for which short interval follow-up ultrasound is recommended in 6 months. If pathology results are benign, the other lesions can undergo short interval follow-up. If pathology results or malignant or high risk, bilateral breast MRI may be beneficial for further evaluation as she has no prior mammograms for comparison. The patient was given verbal and written results/recommendations. BI-RADS ASSESSMENT: 4B - Moderate suspicion for malignancy RECOMMENDATION: Tissue diagnosis [id number] Narrative 06/14/2019 3:52 PM CDT EXAM: MAMMO DIAG BILAT 3D DARIO W OR WO CAD, MAMMO BREAST US BILAT LTD INDICATION: 59-year-old female presents for diagnostic workup of bilateral masses and asymmetries. These were identified on recent baseline 2-D mammogram from [facility]. COMPARISON: Baseline mammogram 05/25/2019 MAMMOGRAM TECHNIQUE: 3-D MLO, ML and CC digital tomosynthesis images were acquired. Spot compression CC and spot compression MLO images were also obtained. Synthesized 2-D images (C-view) were generated. This digital mammogram was also analyzed by the Computer Aided Detection System (CAD). FINDINGS: There are scattered areas of fibroglandular density. Two asymmetries persist in the upper outer quadrant of the right breast. A 1.2 cm mass persists in the upper outer quadrant of the left breast. No definite mass persists in the subareolar left breast. Bilateral ultrasound will be performed. ULTRASOUND TECHNIQUE: Multiple real-time matthews-scale images of the bilateral breasts and axillae are performed. Color Doppler was used to assess vascular flow. FINDINGS: In the right breast at 9:00, 4 cm from the nipple, there is a heterogeneous appearing circumscribed mass measuring 0.9 x 0.5 x 0.8 cm. It is immediately adjacent to a minimally prominent duct. Ultrasound-guided biopsy is recommended. In the right breast at 9:30, 4 cm from the nipple, there is a cyst measuring 0.7 x 0.4 x 0.6 cm. Minimally prominent ducts are noted at 9:30, 4 cm from the nipple. A simple cyst measuring 0.7 x 0.5 x 0.7 cm is present in the right breast at 2:00, 8 cm from the nipple. Minimally prominent ducts are also noted in the right breast at 11:00, 8 cm from the nipple and at 10:00, 2 cm from the nipple. In the right axilla, morphologically normal lymph nodes are identified. In the left breast at 2:00, 9 cm from the nipple, there is a there is an island of breast tissue measuring 1.3 cm which during real-time sonographic evaluation, a mass could not definitely be confirmed. Short interval follow-up ultrasound of this area is recommended in 6 months. In the left breast at 2:30, 9 cm from the nipple there is a hypoechoic slightly irregular mass measuring 1.1 x 0.9 x 1.0 cm. A BB marker was placed and this appears to correspond to the mammographic mass. Ultrasound-guided biopsy is recommended. In the left breast at 2:00, 8 cm from the nipple, a cluster of cysts measuring 0.5 cm is present. In the left axilla, morphologically normal lymph nodes are seen. In the subareolar left breast, minimally prominent ducts are identified. There is a complicated cyst measuring 0.7 cm in the subareolar left breast for which short interval follow-up ultrasound in six months is recommended. us Consuelo Rand DO MAMMO ORDERABLES Edited Res ult - Final * (ABNORMAL) MAMMO DIAG BILAT 3D DARIO W OR WO CAD (06/11/2019 1:24 PM OCEANIC SCIENCES PROFESSOR) Anatomical Region Laterality Modality Breast Bilateral Mammography 06/11/2019 1:24 PM OCEANIC SCIENCES PROFESSOR Addenda Addendum by Josefina Segura, on 06/18/2019 2:28 PM CDT ADDENDUM: Please note there is a typographical error in #3 of the impression on the original report. It should read: 3. Probably benign island of dense fibroglandular tissue in the LEFT breast at 2:00, 9 cm from the nipple for which SHORT INTERVAL FOLLOW-UP IS RECOMMENDED in 6 months with left diagnostic 3-D mammogram and left breast ultrasound. [id number] Impressions 06/14/2019 3:52 PM CDT : 1. Solid heterogeneous 0.9 cm mass in the RIGHT breast at 9:00, 4 cm from the nipple for which ultrasound-guided biopsy is recommended. 2. Hypoechoic 1.1 cm irregular mass in the LEFT breast at 2:30, 9 cm from the nipple for which ultrasound-guided biopsy is recommended. This appears to correspond to the mammographic mass. 3. Probably benign island of dense fibroglandular tissue in the LEFT breast at 2:00, 9 cm from the nipple for which ultrasound-guided biopsy is recommended in 6 months. 4. A complicated cyst in the subareolar LEFT breast for which short interval follow-up ultrasound is recommended in 6 months. If pathology results are benign, the other lesions can undergo short interval follow-up. If pathology results or malignant or high risk, bilateral breast MRI may be beneficial for further evaluation as she has no prior mammograms for comparison. The patient was given verbal and written results/recommendations. BI-RADS ASSESSMENT: 4B - Moderate suspicion for malignancy RECOMMENDATION: Tissue diagnosis [id number] Narrative 06/14/2019 3:52 PM CDT EXAM: MAMMO DIAG BILAT 3D DARIO W OR WO CAD, MAMMO BREAST US BILAT LTD INDICATION: 59-year-old female presents for diagnostic workup of bilateral masses and asymmetries. These were identified on recent baseline 2-D mammogram from [facility]. COMPARISON: Baseline mammogram 05/25/2019 MAMMOGRAM TECHNIQUE: 3-D MLO, ML and CC digital tomosynthesis images were acquired. Spot compression CC and spot compression MLO images were also obtained. Synthesized 2-D images (C-view) were generated. This digital mammogram was also analyzed by the Computer Aided Detection System (CAD). FINDINGS: There are scattered areas of fibroglandular density. Two asymmetries persist in the upper outer quadrant of the right breast. A 1.2 cm mass persists in the upper outer quadrant of the left breast. No definite mass persists in the subareolar left breast. Bilateral ultrasound will be performed. ULTRASOUND TECHNIQUE: Multiple real-time matthews-scale images of the bilateral breasts and axillae are performed. Color Doppler was used to assess vascular flow. FINDINGS: In the right breast at 9:00, 4 cm from the nipple, there is a heterogeneous appearing circumscribed mass measuring 0.9 x 0.5 x 0.8 cm. It is immediately adjacent to a minimally prominent duct. Ultrasound-guided biopsy is recommended. In the right breast at 9:30, 4 cm from the nipple, there is a cyst measuring 0.7 x 0.4 x 0.6 cm. Minimally prominent ducts are noted at 9:30, 4 cm from the nipple. A simple cyst measuring 0.7 x 0.5 x 0.7 cm is present in the right breast at 2:00, 8 cm from the nipple. Minimally prominent ducts are also noted in the right breast at 11:00, 8 cm from the nipple and at 10:00, 2 cm from the nipple. In the right axilla, morphologically normal lymph nodes are identified. In the left breast at 2:00, 9 cm from the nipple, there is a there is an island of breast tissue measuring 1.3 cm which during real-time sonographic evaluation, a mass could not definitely be confirmed. Short interval follow-up ultrasound of this area is recommended in 6 months. In the left breast at 2:30, 9 cm from the nipple there is a hypoechoic slightly irregular mass measuring 1.1 x 0.9 x 1.0 cm. A BB marker was placed and this appears to correspond to the mammographic mass. Ultrasound-guided biopsy is recommended. In the left breast at 2:00, 8 cm from the nipple, a cluster of cysts measuring 0.5 cm is present. In the left axilla, morphologically normal lymph nodes are seen. In the subareolar left breast, minimally prominent ducts are identified. There is a complicated cyst measuring 0.7 cm in the subareolar left breast for which short interval follow-up ultrasound in six months is recommended. us Consuelo Rand DO MAMMO ORDERABLES Edited Res ult - Final documented in this encounter Visit Diagnoses Diagnosis Abnormal breast finding Other abnormal clinical finding Abnormal breast finding Other abnormal clinical finding Abnormal breast finding Other abnormal clinical finding documented in this encounter Additional Health Concerns Infection Onset Date Last Indicated Resolved Time MRSA Comment:Abscess 11/14/15 11/17/2015 11/17/2015 documented as of this encounter Care Teams Currency Exchange Specialist Relationship Specialty Start Date End Date Consuelo Rand DO [address] [place] [address] PCP - General Family Practice 06/04/10 documented as of this encounter
--- OUTSIDE RECORDS SUMMARY | 2024-10-07 17:08 | XMS_ITS | Encounter Summary ---
Author Organization [employer] Address [address] [place] [address] Care Team Providers Care Assessment Coordinator Name Role Phone Consuelo Rand DO Primary Care Provider Encounter Details Date Type Department Care Team (Late st Contact Info) Description 07/23/2016 Ancillary Orders [facility] [employer] [facility] [address] [place] [phone] Adalgisa Esquivel MD [address] [place] [phone] Disability examination Social History Tobacco Use Types Packs/Day Years Used Date Smoking Tobacco: Never Alcohol Use Standard Drinks/Week Comments No 0 (1 standard drink = 0.6 oz pur e alcohol) Comments No Sex and Gender Information Value Date Recorded Sex Assigned at Not on file 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 PHYSICAL THERAPY TECHNICIAN Gender Identity Not on file Sexual Orientation Not on file documented as of this encounter Plan of Treatment Not on file documented as of this encounter Visit Diagnoses Diagnosis Disability examination Issue of medical certificate for disability examination documented in this encounter Additional Health Concerns Infection Onset Date Last Indicated Resolved Time MRSA Comment:Abscess 11/14/15 11/17/2015 11/17/2015 documented as of this encounter Care Teams Assessment Coordinator Relationship Specialty Start Date End Date Consuelo Rand DO [address] [place] [address] PCP - General Family Practice 06/04/10 documented as of this encounter
--- OUTSIDE RECORDS SUMMARY | 2024-10-07 17:08 | XMS_ITS | Encounter Summary ---
Author Organization [facility] Address [address] [place] [address] Care Team Providers Care Mechanical Engineering Specialist Name Role Phone Consuelo Rand DO Primary Care Provider Encounter Details Date Type Department Care Team (Late st Contact Info) Description 06/22/2014 Lab Requisition [facility] [place] [address] [place] [address] Consuelo Rand DO [address] [place] [phone] Social History Tobacco Use Types Packs/Day Years Used Date Smoking Tobacco: Never Alcohol Use Standard Drinks/Week Comments No 0 (1 standard drink = 0.6 oz pur e alcohol) Comments No Sex and Gender Information Value Date Recorded Sex Assigned at Not on file 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 OPTO MECHANICAL TECHNICIAN Gender Identity Not on file Sexual Orientation Not on file documented as of this encounter Plan of Treatment Not on file documented as of this encounter Procedures Procedure Name Priority Date/Time Associated Diagnosis Comments CBC WITH DIFFERENTIAL Routine 06/22/2014 8:20 AM CDT LIPID PANEL Routine 06/22/2014 8:20 AM CDT COMPREHENSIVE METABOLIC PANEL Routine 06/22/2014 8:20 AM CDT documented in this encounter Results * (ABNORMAL) CBC WITH DIFFERENTIAL (06/22/2014 8:20 AM CDT) [facility] WBC 6.8 4.0 - 10.0 K/uL 06/22/2014 1:54 PM CDT [facility] [place] RBC 4.77 3.93 - 5.22 M/uL 06/22/2014 1:54 PM CDT [employer] [place] HEMOGLOBIN 14.2 11.2 - 15.7 g/dL 06/22/2014 1:54 PM CDT [facility] [place] HEMATOCRIT 44.2 34.1 - 44.9 % 06/22/2014 1:54 PM CDT [facility] [employer] [place] MCV 92.7 79.4 - 94.8 fL 06/22/2014 1:54 PM CDT [facility] [employer] [place] MCH 29.8 25.6 - 32.2 pg 06/22/2014 1:54 PM CDT [employer] [place] MCHC 32.1(L) 32.2 - 35.5 g/dL 06/22/2014 1:54 PM CDT [facility] [place] RDW 14.0 11.0 - 14.5 % 06/22/2014 1:54 PM CDT [facility] [place] RDW-STDEV 45.8 36.9 - 56.9 fL 06/22/2014 1:54 PM CDT [facility] [place] PLATELETS 283 163 - 337 K/uL 06/22/2014 1:54 PM CDT [employer] [facility] [place] MPV 10.3 10.0 - 14.8 fL 06/22/2014 1:54 PM CDT [facility] [place] NEUTROPHILS 61 34 - 71 % 06/22/2014 1:54 PM CDT [facility] [place] LYMPHOCYTES 28 19 - 52 % 06/22/2014 1:54 PM CDT [facility] [place] MONOCYTES 9 5 - 13 % 06/22/2014 1:54 PM CDT [facility] [place] EOSINOPHILS 1 1 - 6 % 06/22/2014 1:54 PM CDT [facility] [place] BASOPHILS 1 0 - 1 % 06/22/2014 1:54 PM CDT [employer] [place] NEUTROPHIL ABSOLUTE 4.11 1.56 - 6.13 K/uL 06/22/2014 1:54 PM CDT [facility] [place] LYMPHOCYTE ABSOLUTE 1.91 1.20 - 3.40 K/uL 06/22/2014 1:54 PM CDT [facility] [place] MONOCYTE ABSOLUTE 0.61(H) 0.24 - 0.36 K/uL 06/22/2014 1:54 PM CDT [facility] [place] EOSINOPHIL ABSOLUTE 0.09 0.04 - 0.36 K/uL 06/22/2014 1:54 PM CDT [facility] [place] BASOPHILS ABSOLUTE 0.05 0.01 - 0.08 K/uL 06/22/2014 1:54 PM CDT [facility] [place] IMMATURE GRANULOCYTES 0 % 06/22/2014 1:54 PM CDT [facility] [place] IMMATURE GRANULOCYTES ABSOLUTE 0.01 K/uL 06/22/2014 1:54 PM CDT [facility] [place] Blood Venipuncture - L ab Collect / Unknown 06/22/2014 8:20 AM CDT 06/22/2014 11:11 AM CDT us Consuelo Rand DO HEMATOLOGY ORDERABLES Final Result [facility] [place] CLIA # [id number] [address] [place] [address] * (ABNORMAL) COMPREHENSIVE METABOLIC PANEL (06/22/2014 8:20 AM CDT) SODIUM 140 136 - 145 mmol/L 06/22/2014 3:47 PM CDT [facility] [place] POTASSIUM 4.4 3.5 - 5.1 mmol/L 06/22/2014 3:47 PM CDT [facility] [place] CHLORIDE 103 98 - 107 mmol/L 06/22/2014 3:47 PM CDT [facility] [place] CO2 27 21 - 32 mmol/L 06/22/2014 3:47 PM CDT [facility] [place] CALCIUM 9.7 8.5 - 10.1 mg/dL 06/22/2014 3:47 PM CDT [facility] [place] BUN 12 7 - 18 mg/dL 06/22/2014 3:47 PM CDT [facility] CREATININE 0.80 0.60 - 1.30 mg/dL 06/22/2014 3:47 PM [facility] [place] GLUCOSE 82 74 - 106 mg/dL 06/22/2014 3:47 PM [facility] TOTAL PROTEIN 7.7 6.4 - 8.2 g/dL 06/22/2014 3:47 PM [facility] ALBUMIN 3.8 3.4 - 5.0 g/dL 06/22/2014 3:47 PM [facility]ORY [facility] BILIRUBIN TOTAL 0.5 0.2 - 1.0 mg/dL 06/22/2014 3:47 PM [facility]ATORY [facility] ALKALINE PHOSPHATASE 94 46 - 116 U/L 06/22/2014 3:47 PM [facility] AST 27 15 - 37 U/L 06/22/2014 3:47 PM [facility] ALT 30 30 - 65 U/L 06/22/2014 3:47 PM [facility] GFR >60 >=60 mL/min/1.7 3 sq meter 06/22/2014 3:47 PM [facility] Comment: eGFR has not been validated for use in the elderly (> 70 years of age), women, patients with serious co-morbid conditions, or persons with extremes of body size or muscle mass and should also be interpreted with caution in patients with acute kidney failure, dialysis dependent patients, patients reporting exceptional dietary intake (e.g. vegetarian diet, high protein diets, creatine supplementation), and patients with severe liver disease. Based on National Kidney Disease Education Program If patient is , please refer to the GFR result. GFR, >60 >=60 mL/min/1.7 3 sq meter 06/22/2014 3:47 PM [facility] ANION GAP 10(L) 12 - 20 mmol/L 06/22/2014 3:47 PM [facility] Blood Venipuncture - L ab Collect / Unknown 06/22/2014 8:20 AM CDT 06/22/2014 11:11 AM CDT Narrative [facility] [employer] [facility] - 06/22/2014 3:47 PM CDT Effective 12/09/2013, the Alkaline Phosphatase test method and reference range have changed. Please take this into consideration when interpreting results prior to or after this date. Consuelo Rand DO CHEMISTRY ORDERABLES Final Result [facility] [employer] [facility] CLIA # [id number] [address] [place] [address] * (ABNORMAL) LIPID PANEL (06/22/2014 8:20 AM CDT) [facility] CHOLESTEROL 197 130 - 200 mg/dL 06/22/2014 3:47 PM CDT [facility] [employer] [facility] TRIGLYCERIDE 127 30 - 200 mg/dL 06/22/2014 3:47 PM CDT [facility] [employer] [facility] HDL 68 35 - 80 mg/dL 06/22/2014 3:47 PM CDT [facility] [employer] [facility] LDL CALCULATED 104(H) 0 - 100 mg/dL 06/22/2014 3:47 PM CDT [facility] [employer] [facility] NON-HDL CHOLESTEROL 129 mg/dL 06/22/2014 3:47 PM T [facility] [employer] [facility] Blood Venipuncture - L ab Collect / Unknown 06/22/2014 8:20 AM CDT 06/22/2014 11:11 AM CDT [facility] [employer] [facility] - 06/22/2014 3:47 PM CDT TOTAL CHOLESTEROL mg/dL Desirable <200 Borderline high 200-239 High >=240 TRIGLYCERIDES mg/dL Normal <150 Borderline high 150-199 High 200-499 Very high >=500 HDL CHOLESTEROL mg/dL Low <40 Normal 40-60 Desirable >60 LDL CHOLESTEROL mg/dL Optimal <100 Low risk 100-129 Borderline high 130-159 High 160-189 Very high >=190 NON HDL CHOLESTEROL mg/dL Desirable <130 Borderline high 130-159 High 160-189 Very high >=190 Based on AHA/NCEP Guidelines Consuelo Rand DO CHEMISTRY ORDERABLES Final Result [facility] [place] CLIA # [id number] [address] [address] documented in this encounter Visit Diagnoses Not on filedocumented in this encounter Additional Health Concerns Infection Onset Date Last Indicated Resolved Time MRSA Comment:Abscess 11/14/15 11/17/2015 11/17/2015 documented as of this encounter Care Teams Mechanical Engineering Specialist Relationship Specialty Start Date End Date Consuelo Rand DO [address] [place] [address] PCP - General Family Practice 06/04/10 documented as of this encounter
--- OUTSIDE RECORDS SUMMARY | 2024-10-07 17:08 | XMS_ITS | Encounter Summary ---
Author Organization [facility] Address [address] [place] [address] Care Team Providers Care Mold Carpenter Name Role Phone Consuelo Rand Carl POTTER Primary Care Provider [phone] Reason for Referral * Outpatient Services (Routine) - Closed Specialty Diagnoses / Procedures Referred By Contac t Referred To Contact Radiology Diagnoses Elevated liver enzymes Procedures US ABDOMEN LIMITED Apolinar Butler DO [facility] Ultrasound [place] [address] [place] [address] Phone: tel: fax: Referral ID Status Reason Start Date Expiration Date V isits Requested Visits Authorized [id number] Closed ARN View CTS to Schedule (SGF) 12/22/2017 01/22/2019 1 1 Encounter Details Date Type Department Care Team (Latest Contact Info) Description 12/22/2017 Ancillary Orders [facility] Centralized Scheduling [address] [place] [address] Apolinar Butler DO NO ADDRESS ON FILE Elevated liver enzymes Social History Tobacco Use Types Packs/Day Years Used Date Smoking Tobacco: Never Alcohol Use Standard Drinks/Week Comments No 0 (1 standard drink = 0.6 oz pur e alcohol) Comments No Sex and Gender Information Value Date Recorded Sex Assigned at Not on file 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 US ABDOMEN LIMITED, 12/24/2017 8:11 AM . Reason For Exam: See Diagnosis. Diagnosis: Elevated liver enzymes. COMPARISON: None . TECHNIQUE: Multiplanar real-time ultrasonography of the right upper quadrant using matthews-scale imaging, supplemented by color and spectral Doppler as needed. . FINDINGS: . Liver: Hepatic echogenicity is heterogeneous and diffusely increased. Focal fatty sparing is noted adjacent to the gallbladder fossa. . Gallbladder: Surgically absent. . Pancreas: Incompletely visualized; unremarkable . Biliary: No intrahepatic biliary ductal dilatation. The common bile duct is mildly dilated at 8 mm. . Right kidney: Normal size, contour and echogenicity without perinephric fluid, or hydronephrosis. No focal masses are identified. Renal Length = 10.4 cm. . Peritoneum: No ascites. ++++++++++++++++++++ IMPRESSION: Hepatic steatosis. Mild biliary ductal dilatation likely a postcholecystectomy effect. Narrative Procedure Note Darwin Lucas MD - 12/24/2017 IMPRESSION: Please see below. US ABDOMEN LIMITED, 12/24/2017 8:11 AM . Reason For Exam: See Diagnosis. Diagnosis: Elevated liver enzymes. COMPARISON: None . TECHNIQUE: Multiplanar real-time ultrasonography of the right upper quadrant using matthews-scale imaging, supplemented by color and spectral Doppler as needed. . FINDINGS: . Liver: Hepatic echogenicity is heterogeneous and diffusely increased. Focal fatty sparing is noted adjacent to the gallbladder fossa. . Gallbladder: Surgically absent. . Pancreas: Incompletely visualized; unremarkable . Biliary: No intrahepatic biliary ductal dilatation. The common bile duct is mildly dilated at 8 mm. . Right kidney: Normal size, contour and echogenicity without perinephric fluid, or hydronephrosis. No focal masses are identified. Renal Length = 10.4 cm. . Peritoneum: No ascites. ++++++++++++++++++++ IMPRESSION: Hepatic steatosis. Mild biliary ductal dilatation likely a postcholecystectomy effect. us Apolinar Butler DO US ORDERABLES Final Result documented in this encounter Visit Diagnoses Diagnosis Elevated liver enzymes Nonspecific elevation of levels of transaminase or lactic acid dehydrogenase (LDH) Elevated liver enzymes Nonspecific elevation of levels of transaminase or lactic acid dehydrogenase (LDH) documented in this encounter Additional Health Concerns Infection Onset Date Last Indicated Resolved Time MRSA Comment:Abscess 11/14/15 11/17/2015 11/17/2015 documented as of this encounter Care Teams Mold Carpenter Relationship Specialty Start Date End Date Consuelo Rand DO [address] [place] [address] PCP - General Family Practice 06/04/10 documented as of this encounter
--- OUTSIDE RECORDS SUMMARY | 2024-10-07 17:08 | XMS_ITS | Encounter Summary ---
Author Organization [facility] Address [address] [place] [address] Care Team Providers Care Skirt Panel Assembler Name Role Phone Consuelo Rand Primary Care Provider Encounter Details Date Type Department Care Team (Late st Contact Info) Description 12/15/2017 Lab Requisition [facility] General Laboratory Services [place] [address] [place] [address] Conchis Sapp, BUOY TENDER [address] [place] [id number] Social History Tobacco Use Types Packs/Day Years Used Date Smoking Tobacco: Never Alcohol Use Standard Drinks/Week Comments No 0 (1 standard drink = 0.6 oz pur e alcohol) Comments No Sex and Gender Information Value Date Recorded Sex Assigned at Not on file 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 Gender Identity Not on file Sexual Orientation Not on file documented as of this encounter Plan of Treatment Not on file documented as of this encounter Procedures Procedure Name Priority Date/Time Associated Diagnosis Comments HEPATIC FUNCTION PANEL Routine 12/15/2017 8:40 PM CDT documented in this encounter Results * (ABNORMAL) HEPATIC FUNCTION PANEL (12/15/2017 8:40 PM CDT) TOTAL PROTEIN 7.5 6.6 - 8.7 g/dL 12/15/2017 10:43 PM CDT [facility] ALBUMIN 4.4 3.5 - 5.2 g/dL 12/15/2017 10:43 PM CDT [facility] BILIRUBIN TOTAL 0.3 0.0 - 1.2 mg/dL 12/15/2017 10:43 PM CDT [facility] BILIRUBIN DIRECT <0.2 0.0 - 0.3 mg/dL 12/15/2017 10:43 PM T [facility] ALKALINE PHOSPHATASE 81 35 - 104 U/L 12/15/2017 10:43 PM T [facility] AST 53(H) 10 - 35 U/L 12/15/2017 10:43 PM CDT [facility] ALT 64(H) 10 - 35 U/L 12/15/2017 10:43 PM CDT [facility] Blood 12/15/2017 8:40 PM CDT 12/15/2017 9:58 PM CDT us Conchis Sapp BUOY TENDER CHEMISTRY ORDERABLES Final Result [facility] CLIA # [id number] [address] [place] [phone] documented in this encounter Visit Diagnoses Not on filedocumented in this encounter Additional Health Concerns Infection Onset Date Last Indicated Resolved Time MRSA Comment:Abscess 11/14/15 11/17/2015 11/17/2015 documented as of this encounter Care Teams Skirt Panel Assembler Relationship Specialty Start Date End Date Consuelo Rand DO [address] [place] [address] PCP - General Family Practice 06/04/10 documented as of this encounter
--- OUTSIDE RECORDS SUMMARY | 2024-10-07 17:08 | XMS_ITS | Encounter Summary ---
Author Organization [facility] Address [address] [place] [address] Care Team Providers Care Commercial Collections Driver Name Role Phone Consuelo Rand Carl POTTER Primary Care Provider Encounter Details Date Type Department Care Team (Late st Contact Info) Description 10/13/2013 Ancillary Orders [facility] Laboratory Services [place] [address] [place] [address] Social History Tobacco Use Types Packs/Day Years Used Date Smoking Tobacco: Never Alcohol Use Standard Drinks/Week Comments No 0 (1 standard drink = 0.6 oz pur e alcohol) Comments No Sex and Gender Information Value Date Recorded Sex Assigned at Not on file 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 Gender Identity Not on file Sexual Orientation Not on file documented as of this encounter Plan of Treatment Not on file documented as of this encounter Procedures Procedure Name Priority Date/Time Associated Diagnosis Comments CBC WITH DIFFERENTIAL Routine 10/13/2013 9:50 AM CDT TSH Routine 10/13/2013 9:50 AM CDT IRON LEVEL Routine 10/13/2013 9:50 AM CDT HEMOGLOBIN A1C Routine 10/13/2013 9:50 AM CDT LIPID PANEL Routine 10/13/2013 9:50 AM CDT COMPREHENSIVE METABOLIC PANEL Routine 10/13/2013 9:50 AM CDT documented in this encounter Results * (ABNORMAL) CBC WITH DIFFERENTIAL (10/13/2013 9:50 AM CDT) WBC 9.2 4.0 - 10.0 K/uL 10/13/2013 12:17 PM CDT [facility] [place] RBC 4.39 3.93 - 5.22 M/uL 10/13/2013 12:17 PM CDT [facility] [place] HEMOGLOBIN 13.4 11.2 - 15.7 g/dL 10/13/2013 12:17 PM CDT [facility] [place] HEMATOCRIT 40.6 34.1 - 44.9 % 10/13/2013 12:17 PM CDT [facility] [place] MCV 92.5 79.4 - 94.8 fL 10/13/2013 12:17 PM CDT [facility] [place] MCH 30.5 25.6 - 32.2 pg 10/13/2013 12:17 PM CDT [facility] [place] MCHC 33.0 32.2 - 35.5 g/dL 10/13/2013 12:17 PM CDT [facility] [place] RDW 13.8 11.0 - 14.5 % 10/13/2013 12:17 PM CDT [facility] [place] RDW-STDEV 45.3 36.9 - 56.9 fL 10/13/2013 12:17 PM CDT [facility] [place] PLATELETS 297 163 - 337 K/uL 10/13/2013 12:17 PM CDT [facility] [place] MPV 9.9(L) 10.0 - 14.8 fL 10/13/2013 12:17 PM CDT [facility] [place] NEUTROPHILS 63 34 - 71 % 10/13/2013 12:17 PM CDT [facility] [place] LYMPHOCYTES 25 19 - 52 % 10/13/2013 12:17 PM CDT [facility] [place] MONOCYTES 9 5 - 13 % 10/13/2013 12:17 PM CDT [facility] [place] EOSINOPHILS 2 1 - 6 % 10/13/2013 12:17 PM CDT [facility] [place] BASOPHILS 1 0 - 1 % 10/13/2013 12:17 PM CDT [facility] [place] NEUTROPHIL ABSOLUTE 5.82 1.56 - 6.13 K/uL 10/13/2013 12:17 PM CDT [facility] [place] LYMPHOCYTE ABSOLUTE 2.30 1.20 - 3.40 K/uL 10/13/2013 12:17 PM CDT [facility] [place] MONOCYTE ABSOLUTE 0.84(H) 0.24 - 0.36 K/uL 10/13/2013 12:17 PM CDT [facility] [place] EOSINOPHIL ABSOLUTE 0.15 0.04 - 0.36 K/uL 10/13/2013 12:17 PM CDT [facility] [place] BASOPHILS ABSOLUTE 0.06 0.01 - 0.08 K/uL 10/13/2013 12:17 PM CDT [facility] [place] IMMATURE GRANULOCYTES 0 % 10/13/2013 12:17 PM CDT [facility] [place] IMMATURE GRANULOCYTES ABSOLUTE 0.02 K/uL 10/13/2013 12:17 PM T [facility] [place] [facility] Blood Venipuncture - L ab Collect / Unknown 10/13/2013 9:50 AM CDT 10/13/2013 10:57 AM CDT us Consuelo Rand DO HEMATOLOGY ORDERABLES Final Result [facility] [place] CLIA # [id number] [address] [place] [address] * COMPREHENSIVE METABOLIC PANEL (10/13/2013 9:50 AM CDT) SODIUM 140 136 - 145 mmol/L 10/13/2013 1:05 PM CDT [facility] [place] POTASSIUM 3.9 3.5 - 5.1 mmol/L 10/13/2013 1:05 PM CDT [facility] [place] CHLORIDE 103 98 - 107 mmol/L 10/13/2013 1:05 PM CDT [facility] [place] CO2 27 21 - 32 mmol/L 10/13/2013 1:05 PM CDT [facility] [place] CALCIUM 9.2 8.5 - 10.1 mg/dL 10/13/2013 1:05 PM CDT [facility] BUN 15 7 - 18 mg/dL 10/13/2013 1:05 PM [facility] CREATININE 0.90 0.60 - 1.30 mg/dL 10/13/2013 1:05 PM [facility] GLUCOSE 80 74 - 106 mg/dL 10/13/2013 1:05 PM [facility] TOTAL PROTEIN 7.8 6.4 - 8.2 g/dL 10/13/2013 1:05 PM [facility] ALBUMIN 3.9 3.4 - 5.0 g/dL 10/13/2013 1:05 PM [facility] BILIRUBIN TOTAL 0.5 0.2 - 1.0 mg/dL 10/13/2013 1:05 PM [facility] ALKALINE PHOSPHATASE 117 50 - 136 U/L 10/13/2013 1:05 PM [facility] AST 26 15 - 37 U/L 10/13/2013 1:05 PM [facility] ALT 38 30 - 65 U/L 10/13/2013 1:05 PM [facility] GFR >60 >=60 mL/min/1.7 3 sq meter 10/13/2013 1:05 PM [facility] Comment: eGFR has not been [...] GFR, >60 >=60 mL/min/1.7 3 sq meter 10/13/2013 1:05 PM [facility] Blood Venipuncture - L ab Collect / Unknown 10/13/2013 9:50 AM CDT 10/13/2013 10:57 AM CDT us Consuelo L Keyona DO CHEMISTRY ORDERABLES Final Result Performing Organization Address [facility]/ZIP Co de Phone Number [facility] CLIA # [id number] [address] [place] [address] * TSH (10/13/2013 9:50 AM CDT) TSH 0.94 0.30 - 4.80 uIU/mL 10/13/2013 1:05 PM CDT [facility] Blood Venipuncture - L ab Collect / Unknown 10/13/2013 9:50 AM CDT 10/13/2013 10:57 AM CDT Consuelo Rand DO CHEMISTRY ORDERABLES Final Result Performing Organization Address [facility] Co de Phone Number [facility] CLIA # [id number] [address] [place] [address] * IRON LEVEL (10/13/2013 9:50 AM CDT) Pathologist [facility] IRON 79 50 - 170 ug/dL 10/13/2013 1:06 PM CDT [facility] Blood Venipuncture - L ab Collect / Unknown 10/13/2013 9:50 AM CDT 10/13/2013 10:57 AM CDT Consuelo Rand DO CHEMISTRY ORDERABLES Final Result Performing Organization Address [facility]/ZIP Co de Phone Number [facility] CLIA # [id number] [address] [place] [address] * HEMOGLOBIN A1C (10/13/2013 9:50 AM CDT) HEMOGLOBIN A1C 5.8 4.5 - 6.2 % 10/13/2013 2:40 PM CDT [facility] EST. AVG GLUCOSE, A1C 120 mg/dL 10/13/2013 2:40 PM CDT [facility] Blood Venipuncture - L ab Collect / Unknown 10/13/2013 9:50 AM CDT 10/13/2013 10:57 AM CDT Consuelo Rand DO CHEMISTRY ORDERABLES Final Result Performing Organization Address [facility]/ZIP Co de Phone Number [facility] [employer] [facility] CLIA # [id number] [address] [place] [phone] * (ABNORMAL) LIPID PANEL (10/13/2013 9:50 AM CDT) CHOLESTEROL 223(H) 130 - 200 mg/dL 10/13/2013 1:05 PM CDT [facility] [place] TRIGLYCERIDE 153 30 - 200 mg/dL 10/13/2013 1:05 PM CDT [facility] [employer] [facility] [place] HDL 62 35 - 80 mg/dL 10/13/2013 1:05 PM CDT [facility] [employer] [facility] LDL CALCULATED 130(H) 0 - 100 mg/dL 10/13/2013 1:05 PM CDT [facility] [employer] [facility] Blood Venipuncture - L ab Collect / Unknown 10/13/2013 9:50 AM CDT 10/13/2013 10:57 AM CDT Narrative [facility] [place] - 10/13/2013 1:05 PM CDT TOTAL CHOLESTEROL mg/dL Desirable <200 Borderline high 200-239 High >=240 TRIGLYCERIDES mg/dL Normal <150 Borderline high 150-199 High 200-499 Very high >=500 HDL CHOLESTEROL mg/dL Low <40 Normal 40-60 Desirable >60 LDL CHOLESTEROL mg/dL Optimal <100 Low risk 100-129 Borderline high 130-159 High 160-189 Very high >=190 Based on AHA/NCEP Guidelines Consuelo Rand DO CHEMISTRY ORDERABLES Final Result [facility] [employer] [facility] CLIA # [id number] [address] [place] [phone] documented in this encounter Visit Diagnoses Not on filedocumented in this encounter Additional Health Concerns Infection Onset Date Last Indicated Resolved Time MRSA Comment:Abscess 11/14/15 11/17/2015 11/17/2015 documented as of this encounter Care Teams Commercial Collections Driver Relationship Specialty Start Date End Date Consuelo Rand DO [address] [place] [phone] PCP - General Family Practice 06/04/10 documented as of this encounter
--- OUTSIDE RECORDS SUMMARY | 2024-10-07 17:08 | XMS_ITS | Encounter Summary ---
Author Organization [facility] Address [address] [place] [address] Care Team Providers Care Tissue Rewinder Name Role Phone Consuelo Rand DO Primary Care Provider Encounter Details Date Type Department Care Team (Late st Contact Info) Description 12/20/2015 Lab Requisition [facility] [place] [address] [place] [address] Consuelo Rand DO [address] [place] [phone] Social History Tobacco Use Types Packs/Day Years Used Date Smoking Tobacco: Never Alcohol Use Standard Drinks/Week Comments No 0 (1 standard drink = 0.6 oz pur e alcohol) Comments No Sex and Gender Information Value Date Recorded Sex Assigned at Not on file 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 Gender Identity Not on file Sexual Orientation Not on file documented as of this encounter Plan of Treatment Not on file documented as of this encounter Procedures Procedure Name Priority Date/Time Associated Diagnosis Comments CBC WITH DIFFERENTIAL Routine 12/20/2015 8:00 AM CDT TSH Routine 12/20/2015 8:00 AM CDT IRON LEVEL Routine 12/20/2015 8:00 AM CDT HEMOGLOBIN A1C Routine 12/20/2015 8:00 AM CDT LIPID PANEL Routine 12/20/2015 8:00 AM CDT COMPREHENSIVE METABOLIC PANEL Routine 12/20/2015 8:00 AM CDT documented in this encounter Results * (ABNORMAL) CBC WITH DIFFERENTIAL (12/20/2015 8:00 AM CDT) WBC 5.7 4.0 - 10.0 K/uL 12/20/2015 4:16 PM [facility] RBC 4.63 3.93 - 5.22 M/uL 12/20/2015 4:16 PM [facility] HEMOGLOBIN 13.8 11.2 - 15.7 g/dL 12/20/2015 4:16 PM [facility] HEMATOCRIT 43.1 34.1 - 44.9 % 12/20/2015 4:16 PM [facility] MCV 93.1 79.4 - 94.8 fL 12/20/2015 4:16 PM [facility] MCH 29.8 25.6 - 32.2 pg 12/20/2015 4:16 PM [facility] MCHC 32.0(L) 32.2 - 35.5 g/dL 12/20/2015 4:16 PM [facility] RDW 14.7(H) 11.0 - 14.5 % 12/20/2015 4:16 PM [facility] RDW-STDEV 48.0 36.9 - 56.9 fL 12/20/2015 4:16 PM [facility] PLATELETS 241 163 - 337 K/uL 12/20/2015 4:16 PM [facility] MPV 10.4 10.0 - 14.8 fL 12/20/2015 4:16 PM [facility] NEUTROPHILS 52 34 - 71 % 12/20/2015 4:16 PM [facility] LYMPHOCYTES 34 19 - 52 % 12/20/2015 4:16 PM [facility] MONOCYTES 9 5 - 13 % 12/20/2015 4:16 PM [facility] EOSINOPHILS 3 1 - 6 % 12/20/2015 4:16 PM [facility] BASOPHILS 1 0 - 1 % 12/20/2015 4:16 PM T [facility] NEUTROPHIL ABSOLUTE 2.97 1.56 - 6.13 K/uL 12/20/2015 4:16 PM [facility] LYMPHOCYTE ABSOLUTE 1.95 1.20 - 3.40 K/uL 12/20/2015 4:16 PM [facility] MONOCYTE ABSOLUTE 0.54(H) 0.24 - 0.36 K/uL 12/20/2015 4:16 PM [facility] EOSINOPHIL ABSOLUTE 0.18 0.04 - 0.36 K/uL 12/20/2015 4:16 PM [facility] BASOPHILS ABSOLUTE 0.07 0.01 - 0.08 K/uL 12/20/2015 4:16 PM [facility] IMMATURE GRANULOCYTES 0 % 12/20/2015 4:16 PM [facility] IMMATURE GRANULOCYTES ABSOLUTE 0.01 K/uL 12/20/2015 4:16 PM [facility] Blood Venipuncture - L ab Collect / Unknown 12/20/2015 8:00 AM CDT 12/20/2015 11:36 AM CDT us Consuelo Rand DO HEMATOLOGY ORDERABLES Final Result [facility] # [id number] [address] [place] [address] * (ABNORMAL) COMPREHENSIVE METABOLIC PANEL (12/20/2015 8:00 AM CDT) SODIUM 142 136 - 145 mmol/L 12/20/2015 4:37 PM T [facility] POTASSIUM 3.6 3.5 - 5.1 mmol/L 12/20/2015 4:37 PM [facility] CHLORIDE 100 98 - 107 mmol/L 12/20/2015 4:37 PM T [facility] CO2 24 22 - 29 mmol/L 12/20/2015 4:37 PM [facility] CALCIUM 9.9 8.6 - 10.0 mg/dL 12/20/2015 4:37 PM [facility] BUN 16 6 - 20 mg/dL 12/20/2015 4:37 PM [facility] CREATININE 0.74 0.51 - 0.95 mg/dL 12/20/2015 4:37 PM [facility] GLUCOSE 69(L) 74 - 106 mg/dL 12/20/2015 4:37 PM [facility] TOTAL PROTEIN 7.5 6.6 - 8.7 g/dL 12/20/2015 4:37 PM [facility] ALBUMIN 4.5 3.5 - 5.2 g/dL 12/20/2015 4:37 PM [facility] BILIRUBIN TOTAL 0.6 0.0 - 1.2 mg/dL 12/20/2015 4:37 PM [facility] ALKALINE PHOSPHATASE 86 35 - 104 U/L 12/20/2015 4:37 PM [facility] AST 27 10 - 35 U/L 12/20/2015 4:37 PM [facility] ALT 29 10 - 35 U/L 12/20/2015 4:37 PM [facility] GFR >60 >=60 mL/min/1.7 3 sq meter 12/20/2015 4:37 PM [facility] Comment: eGFR has not been validated for [...] GFR, >60 >=60 mL/min/1.7 3 sq meter 12/20/2015 4:37 PM [facility] ANION GAP 18 12 - 20 mmol/L 12/20/2015 4:37 PM [facility] Blood Venipuncture - L ab Collect / Unknown 12/20/2015 8:00 AM CDT 12/20/2015 11:36 AM CDT us Consuelorukhsana Mckayehan DO CHEMISTRY ORDERABLES Final Result Performing Organization Address [facility]/ZIP Co de Phone Number [facility] CLIA # [id number] [address] [place] [address] * TSH (12/20/2015 8:00 AM CDT) TSH 1.94 0.27 - 4.20 uIU/mL 12/20/2015 4:37 PM CDT [facility] Blood Venipuncture - L ab Collect / Unknown 12/20/2015 8:00 AM CDT 12/20/2015 11:36 AM CDT us Consuelorukhsana Mckayehan DO CHEMISTRY ORDERABLES Final Result Performing Organization Address [facility] Co de Phone Number [facility] CLIA # [id number] [address] [place] [address] * IRON LEVEL (12/20/2015 8:00 AM CDT) IRON 108 37 - 145 ug/dL 12/20/2015 6:48 PM CDT [facility] Blood Venipuncture - L ab Collect / Unknown 12/20/2015 8:00 AM CDT 12/20/2015 11:36 AM CDT us Consuelorukhsana Mckayehan DO CHEMISTRY ORDERABLES Final Result Performing Organization Address [facility]/ZIP Co de Phone Number [facility] CLIA # [id number] [address] [place] [address] * HEMOGLOBIN A1C (12/20/2015 8:00 AM CDT) HEMOGLOBIN A1C 5.3 4.8 - 5.9 % 12/20/2015 7:41 PM CDT [facility] EST. AVG GLUCOSE, A1C 105 mg/dL 12/20/2015 7:41 PM CDT [facility] Blood Venipuncture - L ab Collect / Unknown 12/20/2015 8:00 AM CDT 12/20/2015 11:36 AM CDT us Consuelo Rand DO CHEMISTRY ORDERABLES Final Result [facility] CLIA # [id number] [address] [place] [address] * (ABNORMAL) LIPID PANEL (12/20/2015 8:00 AM CDT) CHOLESTEROL 221(H) <200 mg/dL 12/20/2015 4:37 PM CDT [facility] TRIGLYCERIDE 134 <150 mg/dL 12/20/2015 4:37 PM CDT [facility] HDL 72(H) 40 - 59 mg/dL 12/20/2015 4:37 PM T [facility] LDL CALCULATED 122(H) <100 mg/dL 12/20/2015 4:37 PM T [facility] NON-HDL CHOLESTEROL 149(H) <130 mg/dL 12/20/2015 4:37 PM CDT [facility] Blood Venipuncture - L ab Collect / Unknown 12/20/2015 8:00 AM CDT 12/20/2015 11:36 AM CDT Narrative [facility] - 12/20/2015 4:37 PM CDT TOTAL CHOLESTEROL mg/dL Desirable <200 Borderline high 200-239 High >=240 TRIGLYCERIDES mg/dL Normal <150 Borderline high 150-199 High 200-499 Very high >=500 HDL CHOLESTEROL mg/dL Low <40 Normal 40-59 Desirable >=60 NON HDL CHOLESTEROL mg/dL Optimal <130 Near Optimal 130-159 Borderline High 160-189 Very High >=190 Calculated LDL mg/dL Optimal <100 Near Optimal 100-129 Borderline High 130-159 High 160-189 Very High >=190 ATPIII Guidelines Reference Ranges for Lipid Panels (NCEP/AMA) us Consuelo Rand DO CHEMISTRY ORDERABLES Final Result [facility] # [id number] [address] [place] [address] documented in this encounter Visit Diagnoses Not on filedocumented in this encounter Additional Health Concerns Infection Onset Date Last Indicated Resolved Time MRSA Comment:Abscess 11/14/15 11/17/2015 11/17/2015 documented as of this encounter Care Teams Tissue Rewinder Relationship Specialty Start Date End Date Consuelo Rand DO [address] [place] [phone] PCP - General Family Practice 06/04/10 documented as of this encounter
--- OUTSIDE RECORDS SUMMARY | 2024-10-07 17:08 | XMS_ITS | Encounter Summary ---
Author Organization [employer] [facility] Address [address] [place] [address] Care Team Providers Care Social Media Content Specialist Name Role Phone Consuelo Rand Primary Care Provider Encounter Details Date Type Department Care Team (Late st Contact Info) Description 07/23/2016 Ancillary Orders [facility] [address] [place] [address] Adalgisa Esquivel MD [address] [place] [address] Disability examination Social History Tobacco Use Types Packs/Day Years Used Date Smoking Tobacco: Never Alcohol Use Standard Drinks/Week Comments No 0 (1 standard drink = 0.6 oz pur e alcohol) Comments No Sex and Gender Information Value Date Recorded Sex Assigned at Not on file 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 Exam: XR KNEE 4+ VW RIGHT Date/Time of Exam: 07/23/2016 11:08 AM Reason For Exam: Disability examination Comparison: Right knee 06/15/2012. Findings: Four views of the knee demonstrate no acute fracture or dislocation. No effusion of the suprapatellar pouch is seen. Mild sharpening of the tibial spines with mild tricompartmental marginal osteophyte formation is present. Multiple ossified intra-articular bodies likely residing within the popliteus recess noted. Impression: 1. Negative for acute osseous abnormality. 2. 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 [id number] Narrative Procedure Note Omi Springer MD - 07/23/2016 IMPRESSION IMPRESSION: Please see below. Exam: XR KNEE 4+ VW RIGHT Date/Time of Exam: 07/23/2016 11:08 AM Reason For Exam: Disability examination Comparison: Right knee 06/15/2012. Findings: Four views of the knee demonstrate no acute fracture or dislocation. No effusion of the suprapatellar pouch is seen. Mild sharpening of the tibial spines with mild tricompartmental marginal osteophyte formation is present. Multiple ossified intra-articular bodies likely residing within the popliteus recess noted. Impression: 1. Negative for acute osseous abnormality. 2. 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 [id number] Adalgisa Esquivel MD DIAGNOSTIC IMAGING ORDERABLES Fi nal Result documented in this encounter Visit Diagnoses Diagnosis Disability examination Issue of medical certificate for disability examination Disability examination Issue of medical certificate for disability examination documented in this encounter Additional Health Concerns Infection Onset Date Last Indicated Resolved Time MRSA Comment:Abscess 11/14/15 11/17/2015 11/17/2015 documented as of this encounter Care Teams Social Media Content Specialist Relationship Specialty Start Date End Date Consuelo Rand DO [address] [place] [address] PCP - General Family Practice 06/04/10 documented as of this encounter
--- OUTSIDE RECORDS SUMMARY | 2024-10-07 17:08 | XMS_ITS | Clinical Summary ---
Author Organization [facility] Address [address] [place] [address] Care Team Providers Care Roving Hand Name Role Phone KeyonaConsuelo reddy Carl POTTER Primary Care Provider Allergies No known active allergies Medications TURMERIC ORAL Take by mouth. 11/01/19 20 Active aspirin (ECOTRIN EC) 81 mg Tablet, Delayed Release (E.C.) Take 81 mg by mouth daily. Active Cranberry 500 mg Capsule Take 1 Cap by mouth daily. 11/22/19 15 Active hydrOXYzine HCL (ATARAX) 10 mg tabletIndications :Contact dermatitis due to poison talia Take 1 Tablet (10 mg) by mouth 3 times daily as needed for Itching. 30 Tablet 09/30/19 24 Active mupirocin (BACTROBAN) 2 % OintmentIndicatio ns:Acute paronychia of toe, right Apply to affected area daily. 30 Gram 07/16/19 25 Active dilTIAZem (CARDIZEM CD) 360 mg Controlled Delivery 24 hour capsule TAKE ONE CAPSULE (360 MG) BY MOUTH DAILY. 90 Capsule 4 09/22/19 25 Active rosuvastatin (CRESTOR) 5 mg tabletIndications :Mixed hyperlipidemia Take 1 Tablet (5 mg) by mouth daily. 90 Tablet 4 09/22/19 25 Active hydroCHLOROthiazi de 25 mg tabletIndications :Essential hypertension Take 1 Tablet (25 mg) by mouth daily. 90 Tablet 4 09/22/19 25 Active diltiaZEM (CARDIZEM CD) 360 mg Controlled Delivery 24 hour capsule TAKE ONE CAPSULE (360 MG) BY MOUTH DAILY. 90 Capsule 4 09/26/19 24 025 Discontinued(R eorder) hydroCHLOROthiazi de 25 mg tabletIndications :Essential hypertension Take 1 Tablet (25 mg) by mouth daily. 90 Tablet 4 09/26/19 24 025 Discontinued rosuvastatin (CRESTOR) 5 mg tabletIndications :Mixed hyperlipidemia Take 1 Tablet (5 mg) by mouth daily. 90 Tablet 4 09/26/19 24 025 Discontinued rosuvastatin (CRESTOR) 5 mg tabletIndications :Mixed hyperlipidemia Take 1 Tablet (5 mg) by mouth daily. 30 Tablet 09/11/19 25 025 Discontinued(R eorder) hydroCHLOROthiazi de 25 mg tabletIndications :Essential hypertension Take 1 Tablet (25 mg) by mouth daily. 30 Tablet 09/11/19 25 025 Discontinued(R eorder) Active Problems Problem Noted Date Diagnosed Date Primary osteoarthritis of right hip 09/21/2024 Vitamin D deficiency 10/03/2021 Screening for colon cancer 10/03/2021 Chronic midline low back pain with bilateral sci atica 10/03/2021 MRSA (methicillin resistant staph aureus) cultur e positive 11/14/2015 Hyperlipidemia 02/04/2013 Rosacea 02/04/2013 Essential hypertension 07/11/2010 Resolved Problems Problem Noted Date Diagnosed Date Resolved Date Severe obesity (BMI 35.0-39. 9) with comorbidity 03/10/2015 10/04/2020 Enlarged lymph node 09/26/2010 02/05/20 13 Encounters Date Type Department Care Team Description 10/07/2024 4:20 PM CDT - Present Emergency [facility] [address] [place] [address] elevation myocardial infarction (STEMI), unspecified artery (CMS/HCC) (Primary Dx) 10/07/2024 Travel 09/22/2024 Results Follow-Up [facility] [address] [place] [address] Consuelo Rand DO CBC WITH DIFFERENTIAL, PATHOLOGY, COLON CANCER SCREEN, STOOL DNA 09/21/2024 9:00 AM CDT Office Visit [facility] [address] [place] [address] Consuelo Rand DO Medicare annual wellness visit, subsequent (Primary Dx); Encounter for colorectal cancer screening; Screening mammogram, encounter for; Mixed hyperlipidemia; Essential hypertension; Vitamin D deficiency; Abnormal skin growth; Chronic midline low back pain with bilateral sciatica; Primary osteoarthritis of right hip; Other benign neoplasm of skin of right ear and external auricular canal 09/10/[address] [facility] [address] [place] [address] Consuelo Radn DO Mixed hyperlipidemia; Essential hypertension 08/25/2024 External Device Data STL ABSTRACTION Provider, Abstract 08/24/2024 External Device Data STL ABSTRACTION Provider, Abstract 08/13/[address] [facility] [address] [place] [address] Randjuly, CRIPPLE CHASER 08/13/[address] [facility] [address] [place] [address] Consuelo Rand DO Medication Assistance 08/13/[address] [facility] [address] [address] [facility] 07/15/2024 1:40 PM CDT Office Visit [facility] [address] [place] [address] July, Acute paronychia of toe, right (Primary Dx); Declined influenza vaccine from Last 3 Months Immunizations Immunization Administration Dates Next Due Hepatitis B Vaccine 09/06/2007 Family History Medical History Relation Name Comments Heart Disease Brother 1 Ellis Thomas Has had 3 beatris r heart attacks , implanted defibrillator Heart Disease Brother 2 Sammy Thomas Has had minor heart attacks Hypertension Brother 2 Sammy Thomas Heart Disease Father Jose Thomas of a hear t attack at age 69 Hypertension Father Jose Thomas Breast Cancer Maternal Aunt Cancer Mother Terese Thomas non-Hodgkins Ly mphoma Cancer - Other Mother Terese Thomas Non-Hodgkins lymphoma Lymphoma Mother Terese Thomas Hypertension Sister 3 Erika Ron Hypertension Sister 4 Della Woodall Ovarian Cancer Neg Hx Relation Name Status Comments Brother 1 Ellis Thomas Brother 2 Sammy Thomas Daughter 1 Alive Daughter 2 Alive Father Jose Thomas Maternal Aunt Maternal Grandmother Mother Terese Thomas Sister 1 Alive Sister 2 Alive Sister 3 Erika Ron Sister 4 Della Woodall Social History Tobacco Use Types Packs/Day Years Used Date Smoking Tobacco: Never Passive Smoke Exposure: Never Smokeless Tobacco: Never Tobacco Cessation:Counseling Given: No Alcohol Use Standard Drinks/Week Comments No 0 [...] on file Legal Sex Female 12:04 PM ECHOCARDIOGRAPHY RADIOLOGY TECHNOLOGIST Gender Identity Not on file Sexual Orientation Not on file Last Filed Vital Signs Vital Sign Reading [...] Mass Index 33.61 10/07/2024 2:54 PM CDT Plan of Treatment Upcoming Encounters Date Type Department Care Team (Late st Contact Info) Description 09/21/2025 8:40 AM CDT Office Visit [facility] [address] [facility] [place] [address] Consuelo Rand, DO [address] [facility] [place] [address] Health Maintenance Due Date Last Done Comments FIT/FOBT Q 1 YEAR (AUTO ORDER) 1976 DTAP/TDAP/TD VACCINES (1 - Tdap) 1977 COLORECTAL CANCER SCREENING (AUTO ORDER) 2003 COLORECTAL SCREENING 2003 FIT/FOBT Q 1 year 2003 Flex Sig/CT Colonography Q 5 years 2003 PNEUMOCOCCAL VACCINE 50+ YEA RS (1 of 1 - PCV) 2008 ZOSTER VACCINE (1 of 2) 2008 Pre-Diabetes and Diabetes Screening 09/08/2020 09/08/2017, 12/20/2015 OSTEOPOROSIS SCREENING 2023 BREAST CANCER SCREENING 05/28/2024 05/28/19 24, 08/09/2020, 08/09/2020, Additional history exists INFLUENZA VACCINE (#1) 2024 , 05/16/2023, 07/31/2021, Additional history exists Colorectal Cancer Screening 09/29/2027 FIT-DNA Q 3 years 09/29/2027 09/28/2024, 10/09/2021 FIT/ DNA Q 3 YEARS (AUTO ORDER) 09/29/2027 09/28/2024, 09/28/2024, 10/09/2021, Additional history exists Colorectal Cancer Screening (AUTO ORDER) 09/28/2029 FLEX SIG/CT COLONOGRAPHY Q 5 YEARS (AUTO ORDER) 09/28/2029 09/28/2024, 09/28/2024 RSV VACCINE (60+ or ) (1 - 1-dose 75+ series) 2033 Procedures * The patient is currently admitted. The information in this section might not be complete until the patient is discharged. Procedure Name Priority Date/Time Associated Diagnosis Comments XR CHEST PA OR AP 1 VW Stat 10/07/2024 4:52 PM CDT BRAIN NATRIURETIC PEPTIDE, BNP OR PROBNP Stat 10/07/2024 3:45 PM CDT PT AND APTT Stat 10/07/2024 3:45 PM CDT TROPONIN BASELINE, 5TH GEN Stat 10/07/2024 3:45 PM CDT COMPREHENSIVE METABOLIC PANEL Stat 10/07/2024 3:45 PM CDT CBC WITH DIFFERENTIAL Stat 10/07/2024 3:45 PM CDT COLON CANCER SCREEN, STOOL DNA Routine 09/28/2024 2:00 PM CDT Encounter for colorectal cancer screening VITAMIN D 25 HYDROXY Routine 09/21/2024 9:45 AM CDT Vitamin D deficiency LIPID PANEL Routine 09/21/2024 9:45 AM CDT Mixed hyperlipidemia Essential hypertension TSH Routine 09/21/2024 9:45 AM CDT Mixed hyperlipidemia Essential hypertension COMPREHENSIVE METABOLIC PANEL Routine 09/21/2024 9:45 AM CDT Mixed hyperlipidemia Essential hypertension CBC WITH DIFFERENTIAL Routine 09/21/2024 9:45 AM CDT Mixed hyperlipidemia Essential hypertension PATHOLOGY Routine 09/21/2024 9:20 AM CDT Abnormal skin growth MAMMO 3D DARIO SCREEN BILAT W OR WO CAD Routine 05/28/2023 9:20 AM ECHOCARDIOGRAPHY RADIOLOGY TECHNOLOGIST Screening mammogram, encounter for HEMOGLOBIN A1C Routine 09/08/2017 8:00 PM CDT from Last 3 Months or Most Recently Relevant to Health Maintenance Results * XR CHEST PA OR AP [...] DIAGNOSTIC IMAGING ORDERABLES Final Result * (ABNORMAL) TROPONIN BASELINE, 5TH GEN (10/07/2024 3:45 PM CDT) TROPONIN T, BASELINE 5TH GEN 383(HH) <=10 ng/L 10/07/2024 4:18 PM CDT [facility] Blood BLOOD SPECIMEN / Unknown Collection / Unknown 10/07/2024 3:45 PM CDT 10/07/2024 4:00 PM CDT Narrative [facility] - 10/07/2024 4:18 PM CDT Troponin elevated. Elmer Botello DO CHEMISTRY ORDERABLES Final Re sult [facility] CLIA # [id number] [address] [place] [address] * PT AND APTT (10/07/2024 3:45 PM CDT) [facility] PROTIME 13.0 12.1 - 14.3 Seconds 10/07/2024 4:34 PM CDT [facility] INR 1.0 0.9 - 1.1 10/07/2024 4:34 PM CDT [facility] PTT 25.7 25.1 - 35.4 seconds 10/07/2024 4:34 PM CDT [facility] Blood BLOOD SPECIMEN / Unknown Collection / Unknown 10/07/2024 3:45 PM CDT 10/07/2024 4:25 PM CDT us Elmer Botello DO HEMATOLOGY ORDERABLES Final R esult [facility] CLIA # [id number] [address] [place] [address] * (ABNORMAL) CBC WITH DIFFERENTIAL (10/07/2024 3:45 PM CDT) Only the most recent of2 resultswithin the time period is included. [facility] WBC 8.9 4.0 - 10.0 K/uL 10/07/2024 4:03 [facility] RBC 4.66 3.93 - 5.22 M/uL 10/07/2024 4:03 PM [facility] HEMOGLOBIN 14.0 11.2 - 15.7 g/dL 10/07/2024 4:03 PM [facility] HEMATOCRIT 42.5 34.1 - 44.9 % 10/07/2024 4:03 PM [facility] MCV 91.2 79.4 - 94.8 fL 10/07/2024 4:03 PM [facility] MCH 30.0 25.6 - 32.2 pg 10/07/2024 4:03 PM [facility] MCHC 32.9 32.2 - 35.5 g/dL 10/07/2024 4:03 PM [facility] RDW 13.2 11.0 - 14.5 % 10/07/2024 4:03 PM [facility] RDW-STDEV 44.3 36.9 - 56.9 fL 10/07/2024 4:03 PM [facility] PLATELETS 262 163 - 337 K/uL 10/07/2024 4:03 PM [facility] MPV 9.6(L) 10.0 - 14.8 fL 10/07/2024 4:03 PM [facility] NEUTROPHILS 78(H) 34 - 71 % 10/07/2024 4:03 PM [facility] LYMPHOCYTES 15(L) 19 - 52 % 10/07/2024 4:03 PM [facility] MONOCYTES 6 5 - 13 % 10/07/2024 4:03 PM [facility] EOSINOPHILS 1 1 - 6 % 10/07/2024 4:03 PM [facility] BASOPHILS 1 0 - 1 % 10/07/2024 4:03 PM [facility] IMMATURE GRANULOCYTES 0 % 10/07/2024 4:03 PM [facility] NEUTROPHIL ABSOLUTE 6.93(H) 1.56 - 6.13 K/uL 10/07/2024 4:03 PM [facility] LYMPHOCYTE ABSOLUTE 1.33 1.20 - 3.40 K/uL 10/07/2024 4:03 PM [facility] MONOCYTE ABSOLUTE 0.49(H) 0.24 - 0.36 K/uL 10/07/2024 4:03 PM [facility] EOSINOPHIL ABSOLUTE 0.05 0.04 - 0.36 K/uL 10/07/2024 4:03 PM [facility] BASOPHILS ABSOLUTE 0.09(H) 0.01 - 0.08 K/uL 10/07/2024 4:03 PM [facility] IMMATURE GRANULOCYTES ABSOLUTE 0.03 K/uL 10/07/2024 4:03 PM [facility] Blood BLOOD SPECIMEN / Unknown Collection / Unknown 10/07/2024 3:45 PM CDT 10/07/2024 4:00 PM CDT Elmer Ayan POTTER HEMATOLOGY ORDERABLES Final R esult Performing Organization Address City/[facility]/ZIP Co de Phone Number [facility] CLIA # [id number] [address] [place] [address] * (ABNORMAL) BRAIN NATRIURETIC PEPTIDE, BNP OR PROBNP (10/07/2024 3:45 PM CDT) PROBNP, N TERMINAL 578(H) 0 - 125 pg/mL 10/07/2024 4:39 PM CDT [facility] Comment: INTERPRETIVE COMMENT based on diagnosis: [...] 3:45 PM CDT 10/07/2024 4:00 PM CDT Elmer Botello DO CHEMISTRY ORDERABLES Final Re sult [facility] CLIA # [id number] [address] [place] [address] * (ABNORMAL) COMPREHENSIVE METABOLIC PANEL (10/07/2024 3:45 PM CDT) Only the most recent of2 resultswithin the time period is included. SODIUM 139 136 - 145 mmol/L 10/07/2024 4:17 PM [facility] POTASSIUM 3.9 3.5 - 5.1 mmol/L 10/07/2024 4:17 PM [facility] CHLORIDE 102 98 - 107 mmol/L 10/07/2024 4:17 PM [facility] CO2 24 22 - 29 mmol/L 10/07/2024 4:17 PM [facility] CALCIUM 9.6 8.8 - 10.2 mg/dL 10/07/2024 4:17 PM [facility] BUN 15 8 - 23 mg/dL 10/07/2024 4:17 PM [facility] CREATININE 0.80 0.51 - 0.95 mg/dL 10/07/2024 4:17 PM [facility] GLUCOSE 129(H) 74 - 99 mg/dL 10/07/2024 4:17 PM [facility] TOTAL PROTEIN 7.4 6.6 - 8.7 g/dL 10/07/2024 4:17 PM [facility] ALBUMIN 4.3 3.5 - 5.2 g/dL 10/07/2024 4:17 PM [facility] BILIRUBIN TOTAL 0.4 0.0 - 1.2 mg/dL 10/07/2024 4:17 PM [facility] ALKALINE PHOSPHATASE 93 35 - 104 U/L 10/07/2024 4:17 PM [facility] AST 26 0 - 35 U/L 10/07/2024 4:17 PM [facility] ALT 15 0 - 35 U/L 10/07/2024 4:17 PM [facility] GFR >60 >=60 mL/min/1.7 3 sq meter 10/07/2024 4:17 PM [facility] Comment:eGFR calculated with 2020 CKD-EPI equation. Vegetarian diet, extremely high or low muscle mass, and may affect results. Cystatin C with Glomerular Filtration Rate is a suitable alternative for these patients. ANION GAP 13 5 - 20 mmol/L 10/07/2024 4:17 PM [facility] Blood BLOOD SPECIMEN / Unknown Collection / Unknown 10/07/2024 3:45 PM CDT 10/07/2024 4:00 PM CDT Elmer Nithyaamalia CHEMISTRY ORDERABLES Final Re sult [facility] # [id number] [address] [place] [address] * COLON CANCER SCREEN, STOOL DNA (09/28/2024 2:00 PM CDT) COLOGUARD RESULT Negative Negative [employer] Comment: The Cologuard (TM) test was performed on this specimen. NEGATIVE TEST RESULT. A negative Cologuard result indicates a low likelihood that a colorectal cancer (CRC) or advanced adenoma (adenomatous polyps with more advanced pre-malignant features) is present. The chance that a person with a negative Cologuard test has a colorectal cancer is less than 1 in 1500 (negative predictive value >99.9%) or has an advanced adenoma is less than 5.3% (negative predictive value 94.7%). These data are based on a prospective cross-sectional study of 10,000 individuals at average risk for colorectal cancer who were screened with both Cologuard and colonoscopy. (Flash Parmar al, N Engl J Med 2014;370(14):3401-8245) The normal value (reference range) for this assay is negative. COLOGUARD RE-SCREENING RECOMMENDATION: Periodic colorectal cancer screening is an important part of preventive healthcare for asymptomatic individuals at average risk for colorectal cancer. Following a negative Cologuard result, the [place] [employer] Society and U.S. Multi-Society Task Force screening guidelines recommend a Cologuard re-screening interval of 3 years. References: [place] [employer] Guideline for Colorectal Cancer Screening: https://www.cancer.org/cancer/ppkyk-wdkndz-zajdcw/uetpktnro-sacwjhrek-sbfbrwy/ac s-rec ommendations.html.; Josias LARSEN, Emiliano BARONE, Owen WEAVER, Colorectal Cancer Screening: Recommendations for Physicians and Patients from the U.S. Multi-Society Task Force on Colorectal Cancer Screening , Am J Gastroenterology 2017; 112:9690-8032. TEST DESCRIPTION: Composite algorithmic analysis of stool DNA-biomarkers with hemoglobin immunoassay. Quantitative values of individual biomarkers are not reportable and are not associated with individual biomarker result reference ranges. Cologuard is intended for colorectal cancer screening of adults of either sex, 45 years or older, who are at average-risk for colorectal cancer (CRC). Cologuard has been approved for use by the U.S. FDA. The performance of Cologuard was established in a cross sectional study of average-risk adults aged 50-84. Cologuard performance in patients ages 45 to 49 years was estimated by sub-group analysis of near-age groups. Colonoscopies performed for a positive result may find as the most clinically significant lesion: colorectal cancer [4.0%], advanced adenoma (including sessile serrated polyps greater than or equal to 1cm diameter) [20%] or non- advanced adenoma [31%]; or no colorectal neoplasia [45%]. These estimates are derived from a prospective cross-sectional screening study of 10,000 individuals at average risk for colorectal cancer who were screened with both Cologuard and colonoscopy. (Flash Azevedo et al, N Engl J Med 2014;370(14):4812-6340.) Cologuard may produce a false negative or false positive result (no colorectal cancer or precancerous polyp present at colonoscopy follow up). A negative Cologuard test result does not guarantee the absence of CRC or advanced adenoma (pre-cancer). The current Cologuard screening interval is every 3 years. ([place] [employer] and U.S. Multi-Society Task Force). Cologuard performance data in a 10,000 patient pivotal study using colonoscopy as the reference method can be accessed at the following location: www.[employer]/results. Additional description of the Cologuard test process, warnings and precautions can be found at www.[employer].com. Stool STOOL SPECIMEN / Unknown 09/28/2024 2:00 PM CDT 09/29/2024 1:44 PM CDT Consuelo Rand DO BODY FLUIDS AND STOOLS Malathi aquino Result [facility] CLIA # [id number] [address], [address] [place] [address] * VITAMIN D 25 HYDROXY (09/21/2024 9:45 AM CDT) VITAMIN D, 25 OH, TOTAL 64 30 - 100 ng/mL [facility] Comment: Vitamin D Status 25-OH Vitamin D: Deficiency: <20 ng/mL Insufficiency: 20 - 29 ng/mL Optimal: > or = 30 ng/mL For 25-OH Vitamin D testing on patients on D2-supplementation and patients for whom quantitation of D2 and D3 fractions is required, the QuestAssureD(TM) 25-OH VIT D, (D2,D3), LC/MS/MS is recommended: order code 76602 (patients >2yrs). See Note 1 Note 1 For additional information, please refer to http://education.Synapsify/faq/ZJZ859 (This link is being provided for informational/ educational purposes only.) FASTING:UNKNOWN FASTING: UNKNOWN Test Performed at: [facility] [address] [place] [phone] Edward Caldwell MD Blood 09/21/2024 9:45 AM CDT 09/21/2024 9:45 AM CDT Consuelo Rand DO CHEMISTRY ORDERABLES Final Result [facility] [phone] [facility] [address] [facility] [address] * TSH (09/21/2024 9:45 AM CDT) Pathologist [facility] TSH 1.54 0.40 - 4.50 mIU/L [facility] Comment: Test Performed at: [facility] [address] [place] [phone] Edward Caldwell MD Blood 09/21/2024 9:45 AM CDT 09/21/2024 9:45 AM CDT us Consuelo Carl Rand DO CHEMISTRY ORDERABLES Final Result Performing Organization Address City/[facility]/ZIP Co de Phone Number [facility] [phone] [facility] [place] [address] * LIPID PANEL (09/21/2024 9:45 AM CDT) CHOLESTEROL 148 <200 mg/dL [facility] HDL 80 > OR = 50 mg/dL [facility] TRIGLYCERIDE 122 <150 mg/dL [facility] LDL CALCULATED 48 mg/dL (calc) [facility] Comment: Reference range: <100 Desirable range <100 mg/dL for primary prevention; <70 mg/dL for patients with CHD or diabetic patients with > or = 2 CHD risk factors. LDL-C is now calculated using the Aurora calculation, which is a validated novel method providing better accuracy than the Friedewald equation in the estimation of LDL-C. Robert SS et al. ARMANDO. 2013;310(19): 9412-3349 (http://education.Synapsify/faq/HDA671) CHOL/HDL RATIO 1.9 <5.0 (calc) [facility] NON-HDL CHOLESTEROL 68 <130 mg/dL (calc) [facility] Comment: For patients with diabetes plus 1 major ASCVD risk factor, treating to a non-HDL-C goal of <100 mg/dL (LDL-C of <70 mg/dL) is considered a therapeutic option. Test Performed at: [facility] [phone] Edward Caldwell MD Blood 09/21/2024 9:45 AM CDT 09/21/2024 9:45 AM CDT Consuelo Rand DO CHEMISTRY ORDERABLES Final Result Performing Organization Address City/[facility]/ZIP Co de Phone Number [facility] [phone] [facility] [address] * PATHOLOGY (09/21/2024 9:20 AM CDT) CASE REPORT Surgical Pathology Report Case: [id number] Authorizing Provider: Consuelo Rand DO Collected: 09/21/2024 09:20 AM Ordering Location: [facility] Received: 09/23/2024 06:25 AM [facility] Pathologist: Radha Hendrickson MD Specimen: Skin, right ear 7:54 AM CDT [facility] FINAL DIAGNOSIS A. Skin, right ear, biopsy - Seborrheic keratosis Radha Hendrickson MD [id number] 7:54 AM CDT [facility] at 0754 CDT GROSS DESCRIPTION A. Received in a container of formalin labeled Sky -right ear is a 0.8 x 0.1 x 0.4 cm fragment of skin the skin surface is matthews, verrucous, and friable. The base is inked blue. The specimen is bisected and entirely submitted in A1. Dolores Rowley 7:54 AM CDT [facility] CLINICAL INFORMATION D49.2 - Abnormal skin growth [ICD-10-CM] 7:54 AM CDT [facility] COMMENT The Qonf voice-activated dictation system may have been used in the creation of this report. Inherent to this system is the possibility of errors in syntax, grammar, punctuation, or other areas that could impact interpretation. If there are interpretive questions about the report, please contact the performing pathologist. Unless gross only is specified in the diagnosis, the microscopic examination substantiates the above cited diagnosis. The performance characteristics of all immunohistochemical stains cited in this report (if any) were determined by the Diagnostic Immunohistochemistry Laboratory of [facility] in compliance with CLIA'88 regulations. Some of these tests rely on the use of analyte specific reagents and are subject to specific labeling requirements by the FDA. All controls show appropriate reactivity. This testing was developed by the [facility]ohist[facility] of [facility]. It has not been cleared or approved by the FDA. The FDA has determined that such clearance or approval is not necessary. 7:54 AM CDT [facility] Tissue TISSUE SPECIMEN FROM SKIN / Unknown Collection / Unknown 09/21/2024 9:20 AM CDT 09/23/2024 6:25 AM CDT Consuelo Rand DO PATHOLOGY/CYTOLOGY ORDERABL ES Final Result [facility] CLIA # [id number] [address] [address] [place] [address] * MAMMO 3D DAIRO SCREEN BILAT W OR WO CAD (05/28/2023 9:20 AM ECHOCARDIOGRAPHY RADIOLOGY TECHNOLOGIST) Anatomical Region Laterality Modality Breast Bilateral Mammography, Dig ital Radiography Impressions 06/09/2023 6:29 AM ECHOCARDIOGRAPHY RADIOLOGY TECHNOLOGIST : No mammographic evidence of malignancy. BI-RADS ASSESSMENT: 1 - Negative RECOMMENDATION: Routine annual screening mammography. Narrative 06/09/2023 6:29 AM ECHOCARDIOGRAPHY RADIOLOGY TECHNOLOGIST EXAM: MAMMO SCRN BILAT 3D DARIO W OR WO CAD INDICATION: Screening COMPARISON: 08/09/2020 MAMMO DIAG BILAT 3D DARIO W OR WO CAD, 02/09/2020 MAMMO DIAG BILAT 3D DARIO W OR WO CAD, 06/11/2019 MAMMO DIAG BILAT 3D DARIO W OR WO CAD, and 05/25/2019 MAMMO SCREEN BILAT W OR WO CAD BREAST COMPOSITION: There are scattered areas of fibroglandular density. FINDINGS: RIGHT BREAST: There are no suspicious masses, calcifications, or areas of architectural distortion. LEFT BREAST: There are no suspicious masses, calcifications, or areas of architectural distortion. us Erik Umana CRIPPLE CHASER MAMMO ORDERABLES Final Res ult * HEMOGLOBIN A1C (09/08/2017 8:00 PM CDT) HEMOGLOBIN A1C 5.6 4.8 - 5.9 % 09/08/2017 9:46 PM CDT [facility] EST. AVG GLUCOSE, A1C 114 mg/dL 09/08/2017 9:46 PM CDT [facility] Blood Collection / Unknown 09/08/2017 8:00 PM CDT 09/08/2017 9:09 PM CDT Narrative [facility] - 09/08/2017 9:46 PM CDT HGB A1C INTERPRETATION NORMAL: <5.7% PRE-DIABETES: 5.7 - 6.4% DIABETES: 6.5% OR GREATER us Apolinar Butler DO CHEMISTRY ORDERABLES Final Resu lt [facility] CLIA # [id number] [address] [place] [address] [facility] CLIA # [id number] [address] [place] [address] from Last 3 Months or Most Recently Relevant to Health Maintenance Insurance [facility] [id number] Care Teams Roving Hand Relationship Specialty Start Date End Date Consuelo Rand DO [address] [place] [phone] PCP - General 07/19/20
--- OUTSIDE RECORDS SUMMARY | 2024-10-07 17:08 | XMS_ITS | Encounter Summary ---
Author Organization [facility] Address [address] [place] [address] Care Team Providers Care Operations Dispatcher Name Role Phone Consuelo Rand Carl POTTER Primary Care Provider Encounter Details Date Type Department Care Team (Late st Contact Info) Description 09/09/2016 Lab Requisition [facility] General Laboratory Services [place] [address] [place] [address] Apolinar Butler DO NO ADDRESS ON FILE Social History Tobacco Use Types Packs/Day Years Used Date Smoking Tobacco: Never Alcohol Use Standard Drinks/Week Comments No 0 (1 standard drink = 0.6 oz pur e alcohol) Comments No Sex and Gender Information Value Date Recorded Sex Assigned at Not on file 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 Gender Identity Not on file Sexual Orientation Not on file documented as of this encounter Plan of Treatment Not on file documented as of this encounter Procedures Procedure Name Priority Date/Time Associated Diagnosis Comments CBC WITH DIFFERENTIAL Routine 09/09/2016 9:29 PM CDT COMPREHENSIVE METABOLIC PANEL Routine 09/09/2016 9:29 PM CDT documented in this encounter Results * COMPREHENSIVE METABOLIC PANEL (09/09/2016 9:29 PM CDT) SODIUM 142 136 - 145 mmol/L 09/10/2016 12:48 AM CDT [facility] POTASSIUM 3.7 3.5 - 5.1 mmol/L 09/10/2016 12:[facility] 101 98 - 107 mmol/L 09/10/2016 12:48 AM [facility] CO2 26 22 - 29 mmol/L 09/10/2016 12:48 AM [facility] CALCIUM 9.8 8.6 - 10.0 mg/dL 09/10/2016 12:48 AM [facility] BUN 16 6 - 20 mg/dL 09/10/2016 12:48 AM [facility] CREATININE 0.80 0.51 - 0.95 mg/dL 09/10/2016 12:48 AM [facility] GLUCOSE 95 74 - 106 mg/dL 09/10/2016 12:48 AM [facility] TOTAL PROTEIN 7.8 6.6 - 8.7 g/dL 09/10/2016 12:48 AM [facility] ALBUMIN 4.5 3.5 - 5.2 g/dL 09/10/2016 12:48 AM [facility] BILIRUBIN TOTAL 0.2 0.0 - 1.2 mg/dL 09/10/2016 12:48 AM [facility] ALKALINE PHOSPHATASE 87 35 - 104 U/L 09/10/2016 12:48 AM [facility] AST 19 10 - 35 U/L 09/10/2016 12:48 AM [facility] ALT 26 10 - 35 U/L 09/10/2016 12:48 AM [facility] GFR >60 >=60 mL/min/1.7 3 sq meter 09/10/2016 12:48 AM [facility] Comment: eGFR has not been validated for [...] GFR, >60 >=60 mL/min/1.7 3 sq meter 09/10/2016 12:48 AM [facility] ANION GAP 15 12 - 20 mmol/L 09/10/2016 12:48 AM [facility] Blood Venipuncture / Unknown 09/09/2016 9:29 PM CDT 09/09/2016 11:32 PM CDT us Apolinar Butler DO CHEMISTRY ORDERABLES Final Resu lt [facility] CLIA # [id number] [address] [place] [address] * (ABNORMAL) CBC WITH DIFFERENTIAL (09/09/2016 9:29 PM CDT) WBC 10.1(H) 4.0 - 10.0 K/uL 09/10/2016 12:41 AM [facility] RBC 4.85 3.93 - 5.22 M/uL 09/10/2016 12:41 AM [facility] HEMOGLOBIN 14.7 11.2 - 15.7 g/dL 09/10/2016 12:41 AM [facility] HEMATOCRIT 45.3(H) 34.1 - 44.9 % 09/10/2016 12:41 AM [facility] MCV 93.4 79.4 - 94.8 fL 09/10/2016 12:41 AM [facility] MCH 30.3 25.6 - 32.2 pg 09/10/2016 12:41 AM [facility] MCHC 32.5 32.2 - 35.5 g/dL 09/10/2016 12:41 AM [facility] RDW 14.6(H) 11.0 - 14.5 % 09/10/2016 12:41 AM [facility] RDW-STDEV 48.1 36.9 - 56.9 fL 09/10/2016 12:41 AM [facility] PLATELETS 272 163 - 337 K/uL 09/10/2016 12:41 AM [facility] MPV 10.0 10.0 - 14.8 fL 09/10/2016 12:41 AM [facility] NEUTROPHILS 59 34 - 71 % 09/10/2016 12:41 AM [facility] LYMPHOCYTES 28 19 - 52 % 09/10/2016 12:41 AM [facility] MONOCYTES 10 5 - 13 % 09/10/2016 12:41 AM [facility] EOSINOPHILS 2 1 - 6 % 09/10/2016 12:41 AM [facility] BASOPHILS 1 0 - 1 % 09/10/2016 12:41 AM [facility] IMMATURE GRANULOCYTES 0 % 09/10/2016 12:41 AM [facility] NEUTROPHIL ABSOLUTE 5.97 1.56 - 6.13 K/uL 09/10/2016 12:41 AM [facility] LYMPHOCYTE ABSOLUTE 2.79 1.20 - 3.40 K/uL 09/10/2016 12:41 AM [facility] MONOCYTE ABSOLUTE 1.04(H) 0.24 - 0.36 K/uL 09/10/2016 12:41 AM [facility] EOSINOPHIL ABSOLUTE 0.17 0.04 - 0.36 K/uL 09/10/2016 12:41 AM [facility] BASOPHILS ABSOLUTE 0.06 0.01 - 0.08 K/uL 09/10/2016 12:41 AM [facility] IMMATURE GRANULOCYTES ABSOLUTE 0.03 K/uL 09/10/2016 12:41 AM [facility] Blood Venipuncture / Unknown 09/09/2016 9:29 PM CDT 09/09/2016 11:32 PM CDT us Apolinar Butler DO HEMATOLOGY ORDERABLES Final Res ult [facility] CLIA # [id number] [address] [place] [address] documented in this encounter Visit Diagnoses Not on filedocumented in this encounter Additional Health Concerns Infection Onset Date Last Indicated Resolved Time MRSA Comment:Abscess 11/14/15 11/17/2015 11/17/2015 documented as of this encounter Care Teams Operations Dispatcher Relationship Specialty Start Date End Date Consuelo Rand DO [address] [place] [address] PCP - General Family Practice 06/04/10 documented as of this encounter
--- OUTSIDE RECORDS SUMMARY | 2024-10-07 17:08 | XMS_ITS | Encounter Summary ---
Author Organization [facility] Address [address] [place] [address] Care Team Providers Care Electric Lineman Name Role Phone Consuelo Rand DO Primary Care Provider Reason for Referral * Radiology Services (Routine) - Closed Specialty Diagnoses / Procedures Referred By Contac t Referred To Contact Diagnoses Abnormal mammogram Procedures MAMMO POST US/STEREO GUIDED PROCEDURE BILATERAL Consuelo Rand DO [address] [place] [address] Phone: tel: fax: [facility] Pre-Registration Camilla CALL TO MAKE APPOINTMENT ONLY [address] [place] [address] Phone: tel: fax: Referral ID Status Reason Start Date Expiration Date Visits Re quested Visits Authorized [id number] Closed 06/16/2019 07/16/2020 1 1 Encounter Details Date Type Department Care Team (Late st Contact Info) Description 06/16/2019 Ancillary Orders [facility] [address] [address] Consuelo Rand DO [address] [place] [address] Abnormal mammogram Social History Tobacco Use Types Packs/Day Years Used Date Smoking Tobacco: Never Alcohol Use Standard Drinks/Week Comments No 0 (1 standard drink = 0.6 oz pur e alcohol) Comments No Sex and Gender Information Value Date Recorded Sex Assigned at Not on file 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 [id number] Impressions 07/02/2019 10:07 AM CDT : Successful ultrasound-guided needle core biopsy of the bilateral breast masses as described above. Further recommendations will be based on pathology results. [id number] Narrative 07/02/2019 10:07 AM CDT BILATERAL BREAST [...] recommendations will be based on pathology results. [id number] Consuelo Rand DO MAMMO ORDERABLES Edited Res ult - Final documented in this encounter Visit Diagnoses Diagnosis Abnormal mammogram Abnormal mammogram, unspecified Abnormal mammogram Abnormal mammogram, unspecified documented in this encounter Additional Health Concerns Infection Onset Date Last Indicated Resolved Time MRSA Comment:Abscess 11/14/15 11/17/2015 11/17/2015 documented as of this encounter Care Teams Electric Lineman Relationship Specialty Start Date End Date Consuelo Rand DO [address] [place] [address] PCP - General Family Practice 06/04/10 documented as of this encounter
--- OUTSIDE RECORDS SUMMARY | 2024-10-07 17:08 | XMS_ITS | Encounter Summary ---
Author Organization [facility] Address [address] [place] [address] Care Team Providers Care Scrap Sorter Name Role Phone Consuelo Rand DO Primary Care Provider [phone] Encounter Details Date Type Department Care Team (Late st Contact Info) Description 09/22/2024 Results Follow-Up 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 [place] [address] [facility] [place] [phone] Consuelo Rand DO [address] [place] [facility] [place] [phone] documented as of this encounter Visit Diagnoses Not on filedocumented in this encounter Care Teams Scrap Sorter Relationship Specialty Start Date End Date Consuelo Rand DO [address] [place] [facility] [place] [phone] PCP - General 07/19/20 documented as of this encounter
--- OUTSIDE RECORDS SUMMARY | 2024-10-07 17:08 | XMS_ITS | Encounter Summary ---
Author Organization [facility] Address [address] [place] [address] Care Team Providers Care Sanitary Plumber Name Role Phone Consuelo Rand Carl POTTER Primary Care Provider Encounter Details Date Type Department Care Team (Late st Contact Info) Description 06/24/2012 Ancillary Orders [facility] [place] [address] [place] [address] Social History Tobacco Use Types Packs/Day Years Used Date Smoking Tobacco: Never Alcohol Use Standard Drinks/Week Comments No 0 (1 standard drink = 0.6 oz pur e alcohol) Comments No Sex and Gender Information Value Date Recorded Sex Assigned at Not on file 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 Gender Identity Not on file Sexual Orientation Not on file documented as of this encounter Plan of Treatment Not on file documented as of this encounter Procedures Procedure Name Priority Date/Time Associated Diagnosis Comments CBC WITH DIFFERENTIAL Routine 06/24/2012 9:30 AM CDT TSH Routine 06/24/2012 9:30 AM CDT IRON LEVEL Routine 06/24/2012 9:30 AM CDT HEMOGLOBIN A1C Routine 06/24/2012 9:30 AM CDT FERRITIN Routine 06/24/2012 9:30 AM CDT LIPID PANEL Routine 06/24/2012 9:30 AM CDT COMPREHENSIVE METABOLIC PANEL Routine 06/24/2012 9:30 AM CDT documented in this encounter Results * (ABNORMAL) LIPID PANEL (06/24/2012 9:30 AM CDT) CHOLESTEROL 257(H) 130 - 200 mg/dL 07/01/2012 1:27 PM CDT [facility] TRIGLYCERIDE 123 30 - 200 mg/dL 07/01/2012 1:27 PM CDT [facility] HDL 71 35 - 80 mg/dL 07/01/2012 1:27 PM CDT [facility] LDL CALCULATED 161(H) 0 - 100 mg/dL 07/01/2012 1:27 PM CDT [facility] Blood specimen (specimen) 06/24/2012 9:30 AM CDT 06/24/2012 9:34 AM CDT Narrative [facility] - 07/01/2012 1:27 PM CDT TOTAL CHOLESTEROL mg/dL Desirable <200 Borderline high 200-239 High >=240 TRIGLYCERIDES mg/dL Normal <150 Borderline high 150-199 High 200-499 Very high >=500 HDL CHOLESTEROL mg/dL Low <40 Normal 40-60 Desirable >60 LDL CHOLESTEROL mg/dL Optimal <100 Low risk 100-129 Borderline high 130-159 High 160-189 Very high >=190 Based on AHA/NCEP Guidelines Consuelo Rand DO CHEMISTRY ORDERABLES Final Result [facility] CLIA # [id number] [address] [place] [address] * (ABNORMAL) CBC WITH DIFFERENTIAL (06/24/2012 9:30 AM CDT) WBC 7.8 4.0 - 10.0 K/uL 06/24/2012 12:31 PM CDT [facility] RBC 4.75 3.93 - 5.22 M/uL 06/24/2012 12:31 PM CDT [facility] HEMOGLOBIN 14.3 11.2 - 15.7 g/dL 06/24/2012 12:31 PM CDT [email or web address] [place] HEMATOCRIT 43.2 34.1 - 44.9 % 06/24/2012 12:31 PM CDT [facility] [place] MCV 90.9 79.4 - 94.8 fL 06/24/2012 12:31 PM CDT [facility] [place] MCH 30.1 25.6 - 32.2 pg 06/24/2012 12:31 PM CDT [facility] [place] MCHC 33.1 32.2 - 35.5 g/dL 06/24/2012 12:31 PM CDT [facility] [place] RDW 13.4 11.0 - 14.5 % 06/24/2012 12:31 PM CDT [email or web address] [place] RDW-STDEV 44.0 37.0 - 54.0 fL 06/24/2012 12:31 PM CDT [email or web address] [place] PLATELETS 293 163 - 337 K/uL 06/24/2012 12:31 PM CDT [email or web address] [place] MPV 10.0 10.0 - 14.8 fL 06/24/2012 12:31 PM CDT [facility] [place] NEUTROPHILS 62 34 - 71 % 06/24/2012 12:31 PM CDT [facility] [place] LYMPHOCYTES 28 19 - 52 % 06/24/2012 12:31 PM CDT [facility] [place] MONOCYTES 8 5 - 13 % 06/24/2012 12:31 PM CDT [facility] [place] EOSINOPHILS 1 1 - 6 % 06/24/2012 12:31 PM CDT [facility] [place] BASOPHILS 1 0 - 1 % 06/24/2012 12:31 PM CDT [facility] [place] NEUTROPHIL ABSOLUTE 4.79 1.56 - 6.13 K/uL 06/24/2012 12:31 PM CDT [facility] [place] LYMPHOCYTE ABSOLUTE 2.13 1.20 - 3.40 K/uL 06/24/2012 12:31 PM CDT [facility] [place] MONOCYTE ABSOLUTE 0.65(H) 0.24 - 0.36 K/uL 06/24/2012 12:31 PM CDT [email or web address] [place] EOSINOPHIL ABSOLUTE 0.11 0.04 - 0.36 K/uL 06/24/2012 12:31 PM CDT [email or web address] [place] BASOPHILS ABSOLUTE 0.07 0.01 - 0.08 K/uL 06/24/2012 12:31 PM CDT [facility] [place] Blood specimen (specimen) 06/24/2012 9:30 AM CDT 06/24/2012 9:34 AM CDT Consuelo Rand DO HEMATOLOGY ORDERABLES Final Result [email or web address] [place] CLIA # [id number] [address] [facility] [address] [place] [address] * (ABNORMAL) COMPREHENSIVE METABOLIC PANEL (06/24/2012 9:30 AM CDT) SODIUM 142 136 - 145 mmol/L 07/01/2012 10:48 AM CDT [facility] [place] POTASSIUM 3.6 3.5 - 5.1 mmol/L 07/01/2012 10:48 AM CDT [facility] [place] CHLORIDE 103 98 - 107 mmol/L 07/01/2012 10:48 AM CDT [email or web address] [place] CO2 27 21 - 32 mmol/L 07/01/2012 10:48 AM CDT [facility] [place] CALCIUM 9.2 8.5 - 10.1 mg/dL 07/01/2012 10:48 AM CDT [email or web address] [place] BUN 16 7 - 18 mg/dL 07/01/2012 10:48 AM CDT [email or web address] [place] CREATININE 1.00 0.60 - 1.30 mg/dL 07/01/2012 10:48 AM CDT [email or web address] [place] GLUCOSE 83 74 - 106 mg/dL 07/01/2012 10:48 AM CDT [email or web address] [place] TOTAL PROTEIN 8.1 6.4 - 8.2 g/dL 07/01/2012 10:48 AM CDT [email or web address] [place] ALBUMIN 4.1 3.4 - 5.0 g/dL 07/01/2012 10:48 AM CDT [facility] [place] BILIRUBIN TOTAL 0.5 0.2 - 1.0 mg/dL 07/01/2012 10:48 AM CDT [facility] ALKALINE PHOSPHATASE 106 50 - 136 U/L 07/01/2012 10:48 AM CDT [facility] AST 16 15 - 37 U/L 07/01/2012 10:48 AM CDT [facility] ALT 45 30 - 65 U/L 07/01/2012 10:48 AM CDT [facility] GFR 58(L) >=60 mL/min/1.7 3 sq meter 07/01/2012 10:48 AM CDT [facility] GFR, 70 >=60 mL/min/1.7 3 sq meter 07/01/2012 10:48 AM CDT [facility] Blood specimen (specimen) 06/24/2012 9:30 AM CDT 06/24/2012 9:34 AM CDT Narrative [facility] - 07/01/2012 10:48 AM CDT eGFR has not been validated for use in the elderly (> 70 years of age), women, patients with serious co-morbid conditions, or persons with extremes of body size or muscle mass and should also be interpreted with caution in patients with acute kidney failure, dialysis dependant patients, patients reporting exceptional dietary intake (e.g. vegetarian diet, high protein diets, creatine supplementation), and patients with severe liver disease. Based on National Kidney Disease Education Program Consuelo Rand DO CHEMISTRY ORDERABLES Edited Result - [id number] [address] [place] [address] * TSH (06/24/2012 9:30 AM CDT) TSH 1.30 0.30 - 4.80 uIU/mL 07/01/2012 10:48 AM CDT [facility] Blood specimen (specimen) 06/24/2012 9:30 AM CDT 06/24/2012 9:34 AM CDT Consuelo Rand DO CHEMISTRY ORDERABLES Edited Result - Final Performing Organization Address [facility] de Phone Number [facility] CLIA # [id number] [address] [place] [address] * HEMOGLOBIN A1C (06/24/2012 9:30 AM CDT) HEMOGLOBIN A1C 5.8 4.5 - 6.2 % 06/24/2012 3:05 PM CDT [facility] EST. AVG GLUCOSE, A1C 120 mg/dL 06/24/2012 3:05 PM CDT [facility] Blood specimen (specimen) 06/24/2012 9:30 AM CDT 06/24/2012 9:34 AM CDT Consuelo Rand DO CHEMISTRY ORDERABLES Final Result Performing Organization Address [facility] de Phone Number [facility] CLIA # [id number] [address] [place] [address] * FERRITIN (06/24/2012 9:30 AM CDT) Pathologist [facility] FERRITIN 52.0 8.0 - 252.0 ng/mL 06/24/2012 2:00 PM CDT [facility] Blood specimen (specimen) 06/24/2012 9:30 AM CDT 06/24/2012 9:34 AM CDT Consuelo Rand DO CHEMISTRY ORDERABLES Final Result Performing Organization Address [facility] Co de Phone Number [facility] CLIA # [id number] [address] [place] [phone] * IRON LEVEL (06/24/2012 9:30 AM CDT) IRON 88 50 - 170 ug/dL 06/24/2012 2:00 PM CDT [facility] Blood specimen (specimen) 06/24/2012 9:30 AM CDT 06/24/2012 9:34 AM CDT us Consuelo Rand DO CHEMISTRY ORDERABLES Final Result [facility] CLIA # [id number] [address] [facility] [address] [place] [address] documented in this encounter Visit Diagnoses Not on filedocumented in this encounter Additional Health Concerns Infection Onset Date Last Indicated Resolved Time MRSA Comment:Abscess 11/14/15 11/17/2015 11/17/2015 documented as of this encounter Care Teams Sanitary Plumber Relationship Specialty Start Date End Date Consuelo Rand DO [address] [place] [phone] PCP - General Family Practice 06/04/10 documented as of this encounter
--- OUTSIDE RECORDS SUMMARY | 2024-10-07 17:08 | XMS_ITS | Encounter Summary ---
Author Organization [facility] Address [address] [place] [address] Care Team Providers Care Industrial Specialist Name Role Phone Consuelo Rand DO Primary Care Provider Reason for Referral * Radiology Services (Routine) - Closed Specialty Diagnoses / Procedures Referred By Contac t Referred To Contact Radiology Diagnoses Abnormal mammogram Procedures MAMMO DIAG BILAT 3D DARIO W OR WO CAD MAMMO DIAGNOSTIC BILATERAL W OR WO CAD CHG DIAGNOSTIC MAMMOGRAPHY COMPUTER-AIDED DETCJ BI CHG DIGITAL BREAST TOMOSYNTHESIS BILATERAL Consuelo Rand DO [address] [place] [address] Phone: tel: fax: [facility] [address] [address] Phone: tel: fax: Referral ID Status Reason Start Date Expiration Date V isits Requested Visits Authorized [id number] Closed SGF [facility] TO SCHEDULE (SGF) 11/11/2019 12/11/2020 1 1 Encounter Details Date Type Department Care Team (Late st Contact Info) Description 02/09/2020 Ancillary Orders [facility] [address] [place] [address] Consuelo Rand DO [address] [place] [phone] Abnormal mammogram Social History Tobacco Use Types Packs/Day Years Used Date Smoking Tobacco: Never Alcohol Use Standard Drinks/Week Comments No 0 (1 standard drink = 0.6 oz pur e alcohol) Comments No Sex and Gender Information Value Date Recorded Sex Assigned at Not on file 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 No / Unsure 02/09/2020 10:56 AM HOME CARE ASSOCIATE documented as of this encounter Plan of Treatment Not on file documented as of this encounter Results * (ABNORMAL) MAMMO DIAG BILAT 3D DARIO W OR WO CAD (02/09/2020 12:02 PM HOME CARE ASSOCIATE) Anatomical Region Laterality Modality Breast Bilateral Mammography 02/09/2020 11:3 3 AM HOME CARE ASSOCIATE Impressions 02/09/2020 4:50 PM HOME CARE ASSOCIATE : Satisfactory six-month follow-up bilateral mammogram after bilateral benign ultrasound-guided core biopsies, as noted. I would recommend her next mammogram be a bilateral in six months, with the plan that if there has been no change, we can probably resume routine screening annual mammograms at that time. Patient received a result/recommendation letter. [id number] Narrative 02/09/2020 4:50 PM HOME CARE ASSOCIATE Bilateral diagnostic mammogram 3-D dario with or without CAD: 3-D dario synthesis CC and MLO imaging is presented on this 59-year-old female and compared with previous 06/11/2019 and 05/25/2019. She had bilateral benign ultrasound-guided biopsies on 07/02/2019 and this is her first six-month follow-up after those biopsies. Breast tissue is of average density and asymmetrical. Nodularity bilaterally appears stable to improved. The mass which was biopsied on each side, benign pathology, again noted. The marker placed at the time of the biopsies is noted within each one. No area of suspicion or significant change is identified on either side. us Consuelo Rand DO MAMMO ORDERABLES Final Resu lt documented in this encounter Visit Diagnoses Diagnosis Abnormal mammogram Abnormal mammogram, unspecified Abnormal mammogram Abnormal mammogram, unspecified documented in this encounter Additional Health Concerns Infection Onset Date Last Indicated Resolved Time MRSA Comment:Abscess 11/14/15 11/17/2015 11/17/2015 documented as of this encounter Care Teams Industrial Specialist Relationship Specialty Start Date End Date Consuelo Rand DO [address] [place] [address] PCP - General Family Practice 06/04/10 documented as of this encounter
--- OUTSIDE RECORDS SUMMARY | 2024-10-07 17:08 | XMS_ITS | Clinical Summary ---
Author Organization [facility] Address [address] [place] [address] Care Team Providers Care Student Services Rep Name Role Phone Consuelo Rand DO Primary Care Provider Allergies No known active allergies Medications 0mega-3 fatty acids-vitamin E (FISH OIL) 1,000 mg Oral Cap Take 1,000 mg by mouth daily. Active SOY ISOFLAVONES ORAL Take by mouth. Active Glucosamine-Chondro itin (GLUCOSAMINE-CHONDR OITIN COMPLX) Oral Tab Take by mouth 3 times daily. Active aspirin (ECOTRIN EC) 81 mg Tablet, Delayed Release (E.C.) Take 81 mg by mouth daily. Active Cranberry 500 mg Capsule Take 1 Cap by mouth daily. Active cetirizine (ZYRTEC) 10 mg tablet Take 1 Tablet (10 mg) by mouth daily. 30 Tablet 11 5 Active acetaminophen-codei ne (TYLENOL #3) 300-30 mg tablet Take 1 Tablet by mouth every 4 hours as needed for Pain, Moderate. 30 Tablet 1 6 Active TURMERIC ORAL Take by mouth. Active rosuvastatin (CRESTOR) 5 mg tabletIndications:M ixed hyperlipidemia Take 1 Tablet (5 mg) by mouth daily. 90 Tablet 4 1 Active hydroCHLOROthiazide 25 mg tablet Take 1 Tablet (25 mg) by mouth daily. 90 Tablet 4 1 Active diltiaZEM (Cartia XT) 240 mg Controlled Delivery 24 hour capsuleIndications: Benign hypertension Take 1 Capsule (240 mg) by mouth daily. 14 Capsule 06/23/202 1 Active Active Problems Problem Noted Date Diagnosed Date MRSA (methicillin resistant staph aureus) cultur e positive 11/14/2015 Hyperlipidemia 02/04/2013 Rosacea 02/04/2013 Hypertension 07/11/2010 Resolved Problems Problem Noted Date Diagnosed Date Resolved Date Severe obesity (BMI 35.0-39. 9) with comorbidity 03/10/2015 10/04/2020 Enlarged lymph node 09/26/2010 02/05/20 13 Immunizations Immunization Administration Dates Next Due Hepatitis B Vaccine 09/06/2007 Family History Medical History Relation Name Comments Heart Disease Father Lymphoma Mother Breast Cancer Neg Hx Ovarian Cancer Neg Hx Relation Name Status Comments Daughter 1 Alive Daughter 2 Alive Father Maternal Grandmother Mother Sister 1 Alive Sister 2 Alive Social History Tobacco Use Types Packs/Day Years Used Date Smoking Tobacco: Never Alcohol Use Standard Drinks/Week Comments No 0 (1 standard drink = 0.6 oz pur e alcohol) Comments No Sex and Gender Information Value Date Recorded Sex Assigned at Not on file 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 Gender Identity Not on file Sexual Orientation Not on file Last Filed Vital Signs Vital Sign Reading Time Taken Comments Blood Pressure 135/85 09/25/2020 12:43 PM CDT Pulse 55 09/25/2020 11:13 AM CDT Temperature 36.7 C (98 F) 09/25/2020 11:13 AM CDT Respiratory Rate 18 09/25/2020 11:13 AM CDT Oxygen Saturation 97% 09/25/2020 11:13 AM CDT Inhaled Oxygen Concentration - - Weight 80.3 kg (177 lb) 09/25/2020 11:13 AM CDT Height 165.1 cm (5' 5 ) 09/25/2020 11:13 AM CDT Body Mass Index 29.45 09/25/2020 11:13 AM CDT Plan of Treatment Health Maintenance Due Date Last Done Comments FIT/ DNA Q 3 YEARS (AUTO ORDER) 1976 FIT/FOBT Q 1 YEAR (AUTO ORDER) 1976 FLEX SIG/CT COLONOGRAPHY Q 5 YEARS (AUTO ORDER) 1976 DTAP/TDAP/TD VACCINES (1 - Tdap) 1977 COLORECTAL CANCER SCREENING (AUTO ORDER) 2003 COLORECTAL SCREENING 2003 Colorectal Cancer Screening (AUTO ORDER) 2003 Colorectal Cancer Screening 2003 FIT-DNA Q 3 years 2003 FIT/FOBT Q 1 year 2003 Flex Sig/CT Colonography Q 5 years 2003 PNEUMOCOCCAL VACCINE 50+ YEA RS (1 of 1 - PCV) 2008 ZOSTER VACCINE (1 of 2) 2008 Pre-Diabetes and Diabetes Screening 09/08/2020 09/08/2017, 12/20/2015, 10/13/2013, Additional history exists BREAST CANCER SCREENING 08/09/2021 08/10/19, 08/09/2020, 02/09/2020, Additional history exists Traditional Medicare (ACO) A nnual Wellness Visit 09/26/2021 09/25/2020 OSTEOPOROSIS SCREENING 2023 INFLUENZA VACCINE (#1) 2023 09/25/2020, 2019 RSV VACCINE (60+ or ) (1 - 1-dose 75+ series) 2033 Procedures Procedure Name Priority Date/Time Associated Diagnosis Comments MAMMO 3D DARIO DIAGNOSTIC BILAT W OR WO CAD Routine 08/09/2020 1:07 PM CDT Abnormal mammogram HEMOGLOBIN A1C Routine 09/08/2017 8:00 PM CDT from Last 3 Months or Most Recently Relevant to Health Maintenance Results * MAMMO DIAG BILAT 3D DARIO W OR WO CAD (08/09/2020 1:07 PM CDT) Anatomical Region Laterality Modality Breast Bilateral Mammography 08/09/2020 12:5 3 PM CDT Narrative 08/10/2020 8:14 AM CDT MAMMO DIAG BILAT 3D DARIO W OR WO CAD INDICATION FOR EXAMINATION: See Diagnosis COMPARISONS: Mammogram dated 03/10/2020, 07/02/2019, 05/25/2019 BREAST COMPOSITION: Scattered areas of fibroglandular density. FINDINGS: 3D MLO and CC digital tomosynthesis images were acquired and synthesized 2D images (C view) were generated. This digital mammogram was also analyzed by the Computer Aided Detection System CAD). Patient is status post bilateral benign breast biopsies. The overall fibroglandular pattern is stable. Biopsy clips are noted within the lateral portions of each breast. There are no suspicious masses, areas of architectural distortion, or microcalcifications to suggest malignancy. ASSESSMENT: Benign. No evidence of malignancy. BI-RADS 2. RECOMMENDATIONS: Annual screening mammography. The patient was given a result/recommendation letter. [id number] Procedure Note Abad Son MD - 08/10/2020 MAMMO DIAG BILAT 3D DARIO W OR WO CAD INDICATION FOR EXAMINATION: See Diagnosis COMPARISONS: Mammogram dated 03/10/2020, 07/02/2019, 05/25/2019 BREAST COMPOSITION: Scattered areas of fibroglandular density. FINDINGS: 3D MLO and CC digital tomosynthesis images were acquired and synthesized 2D images (C view) were generated. This digital mammogram was also analyzed by the Computer Aided Detection System CAD). Patient is status post bilateral benign breast biopsies. The overall fibroglandular pattern is stable. Biopsy clips are noted within the lateral portions of each breast. There are no suspicious masses, areas of architectural distortion, or microcalcifications to suggest malignancy. ASSESSMENT: Benign. No evidence of malignancy. BI-RADS 2. RECOMMENDATIONS: Annual screening mammography. The patient was given a result/recommendation letter. [id number] us Consuelo Rand DO MAMMO ORDERABLES Final Resu lt * HEMOGLOBIN A1C (09/08/2017 8:00 PM CDT) HEMOGLOBIN A1C 5.6 4.8 - 5.9 % 09/08/2017 9:46 PM CDT [facility] EST. AVG GLUCOSE, A1C 114 mg/dL 09/08/2017 9:46 PM CDT [facility] Blood Collection / Unknown 09/08/2017 8:00 PM CDT 09/08/2017 9:09 PM CDT Narrative [facility] - 09/08/2017 9:46 PM CDT HGB A1C INTERPRETATION NORMAL: <5.7% PRE-DIABETES: 5.7 - 6.4% DIABETES: 6.5% OR GREATER us Apolinar Butler DO CHEMISTRY ORDERABLES Final [facility]u lt [id number] [address] [place] [id number] from Last 3 Months or Most Recently Relevant to Health Maintenance Additional Health Concerns Infection Onset Date Last Indicated MRSA Comment:Abscess 11/14/15 11/17/2015 11/17/2015 Insurance MEDICARE PART A AND B DISABILITY DETERMINATION Care Teams Student Services Rep Relationship Specialty Start Date End Date Consuelo Rand DO [address] [place] [address] PCP - General Family Practice 06/04/10
--- OUTSIDE RECORDS SUMMARY | 2024-10-07 17:08 | XMS_ITS | Encounter Summary ---
Author Organization [facility] Address [address] [place] [address] Care Team Providers Care English Drawer Name Role Phone Consuelo Rand Primary Care Provider Encounter Details Date Type Department Care Team (Late st Contact Info) Description 01/20/2013 Ancillary Orders [facility] [place] [address] [place] [address] Social History Tobacco Use Types Packs/Day Years Used Date Smoking Tobacco: Never Alcohol Use Standard Drinks/Week Comments No 0 (1 standard drink = 0.6 oz pur e alcohol) Comments No Sex and Gender Information Value Date Recorded Sex Assigned at Not on file 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 Gender Identity Not on file Sexual Orientation Not on file documented as of this encounter Plan of Treatment Not on file documented as of this encounter Procedures Procedure Name Priority Date/Time Associated Diagnosis Comments CBC WITH DIFFERENTIAL Routine 01/20/2013 8:45 AM CDT LIPID PANEL Routine 01/20/2013 8:45 AM CDT COMPREHENSIVE METABOLIC PANEL Routine 01/20/2013 8:45 AM CDT documented in this encounter Results * (ABNORMAL) CBC WITH DIFFERENTIAL (01/20/2013 8:45 AM CDT) WBC 7.0 4.0 - 10.0 K/uL 01/20/2013 2:03 PM CDT [facility] RBC 4.55 3.93 - 5.22 M/uL 01/20/2013 2:03 PM CDT [facility] [place] HEMOGLOBIN 13.9 11.2 - 15.7 g/dL 01/20/2013 2:03 PM CDT [facility] [place] HEMATOCRIT 42.1 34.1 - 44.9 % 01/20/2013 2:03 PM CDT [facility] [place] MCV 92.5 79.4 - 94.8 fL 01/20/2013 2:03 PM CDT [facility] [place] MCH 30.5 25.6 - 32.2 pg 01/20/2013 2:03 PM CDT [facility] [place] MCHC 33.0 32.2 - 35.5 g/dL 01/20/2013 2:03 PM CDT [facility] [place] RDW 13.3 11.0 - 14.5 % 01/20/2013 2:03 PM CDT [facility] [place] RDW-STDEV 44.2 37.0 - 54.0 fL 01/20/2013 2:03 PM CDT [facility] [place] PLATELETS 257 163 - 337 K/uL 01/20/2013 2:03 PM CDT [facility] [place] MPV 10.0 10.0 - 14.8 fL 01/20/2013 2:03 PM CDT [facility] [place] NEUTROPHILS 58 34 - 71 % 01/20/2013 2:03 PM CDT [facility] [place] LYMPHOCYTES 31 19 - 52 % 01/20/2013 2:03 PM CDT [facility] [place] MONOCYTES 8 5 - 13 % 01/20/2013 2:03 PM CDT [facility] [place] EOSINOPHILS 2 1 - 6 % 01/20/2013 2:03 PM CDT [facility] [place] BASOPHILS 1 0 - 1 % 01/20/2013 2:03 PM CDT [facility] [place] NEUTROPHIL ABSOLUTE 4.05 1.56 - 6.13 K/uL 01/20/2013 2:03 PM CDT [facility] [place] LYMPHOCYTE ABSOLUTE 2.14 1.20 - 3.40 K/uL 01/20/2013 2:03 PM CDT [facility] [place] MONOCYTE ABSOLUTE 0.57(H) 0.24 - 0.36 K/uL 01/20/2013 2:03 PM CDT [facility] [place] EOSINOPHIL ABSOLUTE 0.14 0.04 - 0.36 K/uL 01/20/2013 2:03 PM CDT [facility] [place] BASOPHILS ABSOLUTE 0.06 0.01 - 0.08 K/uL 01/20/2013 2:03 PM CDT [facility] [place] Blood specimen (specimen) Venipuncture - Lab Collect / Unknown 01/20/2013 8:45 AM CDT 01/20/2013 11:47 AM CDT us Consuelo Rand DO HEMATOLOGY ORDERABLES Final Result [facility] [place] CLIA # [id number] [address] [place] [address], [place] [address] * COMPREHENSIVE METABOLIC PANEL (01/20/2013 8:45 AM CDT) SODIUM 142 136 - 145 mmol/L 01/20/2013 2:49 PM CDT [facility] [place] POTASSIUM 3.7 3.5 - 5.1 mmol/L 01/20/2013 2:49 PM CDT [facility] [place] CHLORIDE 104 98 - 107 mmol/L 01/20/2013 2:49 PM CDT [facility] CO2 27 21 - 32 mmol/L 01/20/2013 2:49 PM CDT [facility] CALCIUM 9.2 8.5 - 10.1 mg/dL 01/20/2013 2:49 PM CDT [facility] [place] BUN 16 7 - 18 mg/dL 01/20/2013 2:49 PM CDT [facility] [place] CREATININE 0.90 0.60 - 1.30 mg/dL 01/20/2013 2:49 PM CDT [facility] GLUCOSE 79 74 - 106 mg/dL 01/20/2013 2:49 PM CDT [facility] TOTAL PROTEIN 7.8 6.4 - 8.2 g/dL 01/20/2013 2:49 PM CDT [facility] ALBUMIN 3.8 3.4 - 5.0 g/dL 01/20/2013 2:49 PM T [facility] BILIRUBIN TOTAL 0.5 0.2 - 1.0 mg/dL 01/20/2013 2:49 PM T [facility] ALKALINE PHOSPHATASE 110 50 - 136 U/L 01/20/2013 2:49 PM [facility] AST 19 15 - 37 U/L 01/20/2013 2:49 PM [facility] ALT 30 30 - 65 U/L 01/20/2013 2:49 PM T [facility] GFR 65 >=60 mL/min/1.7 3 sq meter 01/20/2013 2:49 PM [facility] Comment: eGFR has not [...] Based on National Kidney Disease Education Program GFR, 79 >=60 mL/min/1.7 3 sq meter 01/20/2013 2:49 PM [facility] Comment: eGFR has not [...] Based on National Kidney Disease Education Program Blood specimen (specimen) Venipuncture - Lab Collect / Unknown 01/20/2013 8:45 AM CDT 01/20/2013 11:47 AM CDT us Consuelo Rand DO CHEMISTRY ORDERABLES Final Result [facility] [id number] [address] [address] * (ABNORMAL) LIPID PANEL (01/20/2013 8:45 AM CDT) CHOLESTEROL 234(H) 130 - 200 mg/dL 01/20/2013 2:49 PM CDT [facility] TRIGLYCERIDE 160 30 - 200 mg/dL 01/20/2013 2:49 PM CDT [facility] HDL 60 35 - 80 mg/dL 01/20/2013 2:49 PM CDT [facility] LDL CALCULATED 142(H) 0 - 100 mg/dL 01/20/2013 2:49 PM CDT [facility] Blood specimen (specimen) Venipuncture - Lab Collect / Unknown 01/20/2013 8:45 AM CDT 01/20/2013 11:47 AM CDT Narrative [facility] LABOR[facility]ORY [facility] - 01/20/2013 2:49 PM CDT TOTAL CHOLESTEROL mg/dL Desirable <200 Borderline high 200-239 High >=240 TRIGLYCERIDES mg/dL Normal <150 Borderline high 150-199 High 200-499 Very high >=500 HDL CHOLESTEROL mg/dL Low <40 Normal 40-60 Desirable >60 LDL CHOLESTEROL mg/dL Optimal <100 Low risk 100-129 Borderline high 130-159 High 160-189 Very high >=190 Based on AHA/NCEP Guidelines Consuelo Rand DO CHEMISTRY ORDERABLES Final Result [facility] [employer] [facility] CLIA # [id number] [address] [address] documented in this encounter Visit Diagnoses Not on filedocumented in this encounter Additional Health Concerns Infection Onset Date Last Indicated Resolved Time MRSA Comment:Abscess 11/14/15 11/17/2015 11/17/2015 documented as of this encounter Care Teams English Drawer Relationship Specialty Start Date End Date Consuelo Rand DO [address] [place] [address] PCP - General Family Practice 06/04/10 documented as of this encounter
--- OUTSIDE RECORDS SUMMARY | 2024-10-07 17:08 | XMS_ITS | Encounter Summary ---
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 Gender Identity Not on file Sexual Orientation Not on file documented as of this encounter Plan of Treatment Upcoming Encounters Date Type Department Care Team (Late st Contact Info) Description 09/21/2025 8:40 AM CDT Office Visit [facility] [address] [place] [phone] Consuelo Rand DO [address] [place] [phone] documented as of this encounter Visit Diagnoses Not on filedocumented in this encounter Care Teams Auto Air Conditioning Mechanic Relationship Specialty Start Date End Date Consuelo Rand DO [address] [place] [facility] [place] [phone] PCP - General 07/19/20 documented as of this encounter
--- OUTSIDE RECORDS SUMMARY | 2024-10-07 17:08 | XMS_ITS | Encounter Summary ---
Author Organization [facility] Address [address] [place] [address] Care Team Providers Care Tankage Grinder Name Role Phone Consuelo Rand Carl POTTER Primary Care Provider Encounter Details Date Type Department Care Team (Late st Contact Info) Description 09/08/2017 Lab Requisition [facility] General Laboratory Services [place] [address] [place] [address] Apolinar Butler DO NO ADDRESS ON FILE Social History Tobacco Use Types Packs/Day Years Used Date Smoking Tobacco: Never Alcohol Use Standard Drinks/Week Comments No 0 (1 standard drink = 0.6 oz pur e alcohol) Comments No Sex and Gender Information Value Date Recorded Sex Assigned at Not on file 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 Gender Identity Not on file Sexual Orientation Not on file documented as of this encounter Plan of Treatment Not on file documented as of this encounter Procedures Procedure Name Priority Date/Time Associated Diagnosis Comments BILIRUBIN DIRECT Routine 09/08/2017 8:00 PM CDT LIPID PANEL Routine 09/08/2017 8:00 PM CDT COMPREHENSIVE METABOLIC PANEL Routine 09/08/2017 8:00 PM CDT documented in this encounter Results * BILIRUBIN DIRECT (09/08/2017 8:00 PM CDT) BILIRUBIN DIRECT <0.2 0.0 - 0.3 mg/dL 09/08/2017 9:42 PM CDT [facility] Blood Collection / Unknown 09/08/2017 8:00 PM CDT 09/08/2017 9:14 PM CDT us Apolinar Butler DO CHEMISTRY ORDERABLES Final Resu lt [facility] CLIA # [id number] [address] [place] [address] * (ABNORMAL) LIPID PANEL (09/08/2017 8:00 PM CDT) CHOLESTEROL 204(H) <200 mg/dL 09/08/2017 9:45 PM CDT [facility] TRIGLYCERIDE 93 <150 mg/dL 09/08/2017 9:45 PM CDT [facility] HDL 71(H) 40 - 59 mg/dL 09/08/2017 9:45 PM CDT [facility] LDL CALCULATED 114(H) <100 mg/dL 09/08/2017 9:45 PM CDT [facility] NON-HDL CHOLESTEROL 133(H) <130 mg/dL 09/08/2017 9:45 PM CDT [facility] Blood Collection / Unknown 09/08/2017 8:00 PM CDT 09/08/2017 9:14 PM CDT Narrative [facility] - 09/08/2017 9:45 PM CDT TOTAL CHOLESTEROL mg/dL Desirable <200 [...] Reference Ranges for Lipid Panels (NCEP/AMA) us Apolinar Butler DO CHEMISTRY ORDERABLES Final Resu lt [facility] CLIA # [id number] [address] [place] [address] * (ABNORMAL) COMPREHENSIVE METABOLIC PANEL (09/08/2017 8:00 PM CDT) SODIUM 139 136 - 145 mmol/L 09/08/2017 9:45 PM [facility] POTASSIUM 3.7 3.5 - 5.1 mmol/L 09/08/2017 9:45 PM [facility] CHLORIDE 96(L) 98 - 107 mmol/L 09/08/2017 9:45 PM [facility] CO2 28 22 - 29 mmol/L 09/08/2017 9:45 PM [facility] CALCIUM 9.6 8.6 - 10.0 mg/dL 09/08/2017 9:45 PM [facility] BUN 12 6 - 20 mg/dL 09/08/2017 9:45 PM [facility] CREATININE 0.78 0.51 - 0.95 mg/dL 09/08/2017 9:45 PM [facility] GLUCOSE 86 74 - 106 mg/dL 09/08/2017 9:45 PM [facility] TOTAL PROTEIN 7.5 6.6 - 8.7 g/dL 09/08/2017 9:45 PM [facility] ALBUMIN 4.7 3.5 - 5.2 g/dL 09/08/2017 9:45 PM [facility] BILIRUBIN TOTAL 0.5 0.0 - 1.2 mg/dL 09/08/2017 9:45 PM [facility] ALKALINE PHOSPHATASE 83 35 - 104 U/L 09/08/2017 9:45 PM [facility] AST 35 10 - 35 U/L 09/08/2017 9:45 PM [facility] ALT 43(H) 10 - 35 U/L 09/08/2017 9:45 PM [facility] GFR >60 >=60 mL/min/1.7 3 sq meter 09/08/2017 9:45 PM [facility] Comment: eGFR has not been validated for [...] GFR, >60 >=60 mL/min/1.7 3 sq meter 09/08/2017 9:45 PM CDT [facility] ANION GAP 15 12 - 20 mmol/L 09/08/2017 9:45 PM CDT [facility] Blood Collection / Unknown 09/08/2017 8:00 PM CDT 09/08/2017 9:14 PM CDT us Apolinar Butler DO CHEMISTRY ORDERABLES Final Resu lt [facility] CLIA # [id number] [address] [place] [address] documented in this encounter Visit Diagnoses Not on filedocumented in this encounter Additional Health Concerns Infection Onset Date Last Indicated Resolved Time MRSA Comment:Abscess 11/14/15 11/17/2015 11/17/2015 documented as of this encounter Care Teams Tankage Grinder Relationship Specialty Start Date End Date Consuelo Rand DO [address] [place] [address] PCP - General Family Practice 06/04/10 documented as of this encounter
--- OUTSIDE RECORDS SUMMARY | 2024-10-07 17:08 | XMS_ITS | Encounter Summary ---
Author Organization [facility] Address [address] [place] [address] Care Team Providers Care Plant Quality Manager Name Role Phone Consuelo Rand Carl POTTER Primary Care Provider Encounter Details Date Type Department Care Team (Late st Contact Info) Description 12/01/2017 Lab Requisition [facility] Laboratory Services [place] [address] [place] [address] Apolinar Butler DO NO ADDRESS ON FILE Social History Tobacco Use Types Packs/Day Years Used Date Smoking Tobacco: Never Alcohol Use Standard Drinks/Week Comments No 0 (1 standard drink = 0.6 oz pur e alcohol) Comments No Sex and Gender Information Value Date Recorded Sex Assigned at Not on file 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 Gender Identity Not on file Sexual Orientation Not on file documented as of this encounter Plan of Treatment Not on file documented as of this encounter Procedures Procedure Name Priority Date/Time Associated Diagnosis Comments CBC WITH DIFFERENTIAL Routine 12/01/2017 10:10 PM CDT TSH Routine 12/01/2017 10:10 PM CDT LIPID PANEL Routine 12/01/2017 10:10 PM CDT COMPREHENSIVE METABOLIC PANEL Routine 12/01/2017 10:10 PM CDT documented in this encounter Results * (ABNORMAL) CBC WITH DIFFERENTIAL (12/01/2017 10:10 PM CDT) [facility] WBC 7.9 4.0 - 10.0 K/uL 12/02/2017 5:21 AM [facility] RBC 5.05 3.93 - 5.22 M/uL 12/02/2017 5:21 AM [facility] HEMOGLOBIN 15.0 11.2 - 15.7 g/dL 12/02/2017 5:21 AM [facility] HEMATOCRIT 47.9(H) 34.1 - 44.9 % 12/02/2017 5:21 AM [facility] MCV 94.9(H) 79.4 - 94.8 fL 12/02/2017 5:21 AM [facility] MCH 29.7 25.6 - 32.2 pg 12/02/2017 5:21 AM [facility] MCHC 31.3(L) 32.2 - 35.5 g/dL 12/02/2017 5:21 AM [facility] RDW 14.9(H) 11.0 - 14.5 % 12/02/2017 5:21 AM [facility] RDW-STDEV 49.4 36.9 - 56.9 fL 12/02/2017 5:21 AM [facility] PLATELETS 281 163 - 337 K/uL 12/02/2017 5:21 AM [facility] MPV 10.3 10.0 - 14.8 fL 12/02/2017 5:21 AM [facility] NEUTROPHILS 51 34 - 71 % 12/02/2017 5:21 AM [facility] LYMPHOCYTES 35 19 - 52 % 12/02/2017 5:21 AM [facility] MONOCYTES 11 5 - 13 % 12/02/2017 5:21 AM [facility] EOSINOPHILS 3 1 - 6 % 12/02/2017 5:21 AM [facility] BASOPHILS 1 0 - 1 % 12/02/2017 5:21 AM [facility] IMMATURE GRANULOCYTES 0 % 12/02/2017 5:21 AM [facility] NEUTROPHIL ABSOLUTE 4.00 1.56 - 6.13 K/uL 12/02/2017 5:21 AM CDT [facility] LYMPHOCYTE ABSOLUTE 2.75 1.20 - 3.40 K/uL 12/02/2017 5:21 AM CDT [facility] MONOCYTE ABSOLUTE 0.84(H) 0.24 - 0.36 K/uL 12/02/2017 5:21 AM CDT [facility] EOSINOPHIL ABSOLUTE 0.21 0.04 - 0.36 K/uL 12/02/2017 5:21 AM CDT [facility] BASOPHILS ABSOLUTE 0.07 0.01 - 0.08 K/uL 12/02/2017 5:21 AM CDT [facility] IMMATURE GRANULOCYTES ABSOLUTE 0.01 K/uL 12/02/2017 5:21 AM CDT [facility] Blood 12/01/2017 10:1 0 PM CDT 12/02/2017 4:24 AM CDT us Apolinar Butler DO HEMATOLOGY ORDERABLES Final Res ult [facility] CLIA # [id number] [address] [place] [address] * (ABNORMAL) LIPID PANEL (12/01/2017 10:10 PM CDT) CHOLESTEROL 203(H) <200 mg/dL 12/02/2017 5:27 AM T [facility] TRIGLYCERIDE 130 <150 mg/dL 12/02/2017 5:27 AM CDT [facility] HDL 71(H) 40 - 59 mg/dL 12/02/2017 5:27 AM T [facility] LDL CALCULATED 106(H) <100 mg/dL 12/02/2017 5:27 AM T [facility] NON-HDL CHOLESTEROL 132(H) <130 mg/dL 12/02/2017 5:27 AM [facility] Blood 12/01/2017 10:1 0 PM CDT 12/02/2017 4:24 AM CDT Narrative [facility] - 12/02/2017 5:27 AM CDT TOTAL CHOLESTEROL mg/dL Desirable <200 Borderline [...] Butler DO CHEMISTRY ORDERABLES Final Resu lt [facility] CLIA # [id number] [address] [place] [address] [phone] * (ABNORMAL) COMPREHENSIVE METABOLIC PANEL (12/01/2017 10:10 PM CDT) SODIUM 141 136 - 145 mmol/L 12/02/2017 5:26 AM [facility] POTASSIUM 3.8 3.5 - 5.1 mmol/L 12/02/2017 5:26 AM [facility] CHLORIDE 98 98 - 107 mmol/L 12/02/2017 5:26 AM [facility] CO2 25 22 - 29 mmol/L 12/02/2017 5:26 AM [facility] CALCIUM 9.9 8.6 - 10.0 mg/dL 12/02/2017 5:26 AM [facility] BUN 12 6 - 20 mg/dL 12/02/2017 5:26 AM [facility] CREATININE 0.76 0.51 - 0.95 mg/dL 12/02/2017 5:26 AM [facility] GLUCOSE 78 74 - 99 mg/dL 12/02/2017 5:26 AM [facility] TOTAL PROTEIN 7.9 6.6 - 8.7 g/dL 12/02/2017 5:26 AM [facility] ALBUMIN 4.5 3.5 - 5.2 g/dL 12/02/2017 5:26 AM [facility] BILIRUBIN TOTAL 0.7 0.0 - 1.2 mg/dL 12/02/2017 5:26 AM [facility] ALKALINE PHOSPHATASE 85 35 - 104 U/L 12/02/2017 5:26 AM [facility] AST 51(H) 10 - 35 U/L 12/02/2017 5:26 AM [facility] ALT 60(H) 10 - 35 U/L 12/02/2017 5:26 AM [facility] GFR >60 >=60 mL/min/1.7 3 sq meter 12/02/2017 5:26 AM [facility] Comment: eGFR has not been validated for [...] GFR, >60 >=60 mL/min/1.7 3 sq meter 12/02/2017 5:26 AM [facility] ANION GAP 18 12 - 20 mmol/L 12/02/2017 5:26 AM [facility] Blood 12/01/2017 10:1 0 PM CDT 12/02/2017 4:24 AM CDT us Apolinar Butler DO CHEMISTRY ORDERABLES Final Resu lt [facility] CLIA # [id number] [address] [place] [address] * TSH (12/01/2017 10:10 PM CDT) TSH 2.10 0.27 - 4.20 uIU/mL 12/02/2017 5:27 AM T [facility] Blood 12/01/2017 10:1 0 PM CDT 12/02/2017 4:24 AM CDT us Apolinar Butler DO CHEMISTRY ORDERABLES Final Resu lt Performing Organization Address City/State/[facility] Co de Phone Number [id number] [address] [place] [address] documented in this encounter Visit Diagnoses Not on filedocumented in this encounter Additional Health Concerns Infection Onset Date Last Indicated Resolved Time MRSA Comment:Abscess 11/14/15 11/17/2015 11/17/2015 documented as of this encounter Care Teams Plant Quality Manager Relationship Specialty Start Date End Date Consuelo Rand DO [address] [place] [address] PCP - General Family Practice 06/04/10 documented as of this encounter
--- OUTSIDE RECORDS SUMMARY | 2024-10-07 17:08 | XMS_ITS | Encounter Summary ---
Author Organization [facility] Address [address] [place] [address] Care Team Providers Care Corporate Physical Security Supervisor Name Role Phone Consuelo Rand DO Primary Care Provider [phone] Reason for Referral * Radiology Services (Routine) - Closed Specialty Diagnoses / Procedures Referred By Contac t Referred To Contact Radiology Diagnoses Abnormal mammogram Procedures MAMMO DIAG BILAT 3D DARIO W OR WO CAD CHG DIAGNOSTIC MAMMOGRAPHY COMPUTER-AIDED DETCJ BI CHG DIGITAL BREAST TOMOSYNTHESIS BILATERAL Consuelo Rand DO [address] [place] [address] Phone: tel: fax: [facility] [address] [address] Phone: tel: fax: Referral ID Status Reason Start Date Expiration Date V isits Requested Visits Authorized [id number] Closed [facility] to Schedule 07/11/2020 08/11/2021 1 1 Encounter Details Date Type Department Care Team ([facility] st Contact Info) Description 07/11/2020 Ancillary Orders [place] Pre-Registration Essie CALL TO MAKE APPOINTMENT ONLY [address] [place] [address] Consuelo Rand DO [address] [place] [address] Abnormal mammogram Social History Tobacco Use Types Packs/Day Years Used Date Smoking Tobacco: Never Alcohol Use Standard Drinks/Week Comments No 0 (1 standard drink = 0.6 oz pur e alcohol) Comments No Sex and Gender Information Value Date Recorded Sex Assigned at Not on file 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 CENTER DIRECTOR LEAD TEACHER Gender Identity Not on file Sexual Orientation Not on file documented as of this encounter Plan of Treatment Not on file documented as of this encounter Results * MAMMO DIAG BILAT 3D DARIO [...] The patient was given a result/recommendation letter. [id number] Procedure Note Abad Son MD - 08/10/2020 [...] The patient was given a result/recommendation letter. [id number] us Consuelo Rand DO MAMMO ORDERABLES Final Resu lt documented in this encounter Visit Diagnoses Diagnosis Abnormal mammogram Abnormal mammogram, unspecified Abnormal mammogram Abnormal mammogram, unspecified documented in this encounter Additional Health Concerns Infection Onset Date Last Indicated Resolved Time MRSA Comment:Abscess 11/14/15 11/17/2015 11/17/2015 documented as of this encounter Care Teams Corporate Physical Security Supervisor Relationship Specialty Start Date End Date Consuelo Rand DO [address] [place] [address] PCP - General Family Practice 06/04/10 documented as of this encounter
--- OUTSIDE RECORDS SUMMARY | 2024-10-07 17:09 | XMS_ITS | Encounter Summary ---
Author Organization [facility] Address [address] [place] [address] Care Team Providers Care Cylindrical Mixer Name Role Phone Consuelo Rand Carl POTTER Primary Care Provider [phone] Encounter Details Date Type Department Care Team (Late st Contact Info) Description 09/08/2017 Lab Requisition [facility] Laboratory Services [place] [address] [place] [address] Apolinar Butler DO NO ADDRESS ON FILE Social History Tobacco Use Types Packs/Day Years Used Date Smoking Tobacco: Never Alcohol Use Standard Drinks/Week Comments No 0 (1 standard drink = 0.6 oz pur e alcohol) Comments No Sex and Gender Information Value Date Recorded Sex Assigned at Not on file 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 CARE PARTNER Gender Identity Not on file Sexual Orientation Not on file documented as of this encounter Plan of Treatment Not on file documented as of this encounter Procedures Procedure Name Priority Date/Time Associated Diagnosis Comments ACUTE HEPATITIS PANEL Routine 09/08/2017 8:00 PM CDT HEMOGLOBIN A1C Routine 09/08/2017 8:00 PM CDT documented in this encounter Results * ACUTE HEPATITIS PANEL (09/08/2017 8:00 PM CDT) HEPATITIS B SURFACE AG NON-REACTI VE Non-react lillian 09/09/2017 9:16 PM CDT [facility] HEPATITIS B CORE IGM Non-reacti ve Non-react lillian 09/09/2017 9:16 PM CDT [facility] HEPATITIS A IGM Non-reacti ve Non-react lillian 09/09/2017 9:16 PM CDT [facility] HEPATITIS C AB NON-REACTI VE Non-react lillian 09/09/2017 9:16 PM CDT [facility] Blood Collection / Unknown 09/08/2017 8:00 PM CDT 09/08/2017 9:08 PM CDT us Apolinar Butler DO CHEMISTRY ORDERABLES Final Resu lt [facility] CLIA# [id number] [address] [place] [address] * HEMOGLOBIN A1C (09/08/2017 8:00 PM CDT) HEMOGLOBIN A1C 5.6 4.8 - 5.9 % 09/08/2017 9:46 PM CDT [facility] EST. AVG GLUCOSE, A1C 114 mg/dL 09/08/2017 9:46 PM CDT [facility] Blood Collection / Unknown 09/08/2017 8:00 PM CDT 09/08/2017 9:09 PM CDT Narrative [facility] - 09/08/2017 9:46 PM CDT HGB A1C INTERPRETATION NORMAL: <5.7% PRE-DIABETES: 5.7 - 6.4% DIABETES: 6.5% OR GREATER us Apolinar Butler DO CHEMISTRY ORDERABLES Final Resu lt [facility] CLIA # [id number] [address] [place] [address] documented in this encounter Visit Diagnoses Not on filedocumented in this encounter Additional Health Concerns Infection Onset Date Last Indicated Resolved Time MRSA Comment:Abscess 11/14/15 11/17/2015 11/17/2015 documented as of this encounter Care Teams Cylindrical Mixer Relationship Specialty Start Date End Date Consuelo Rand DO [address] [place] [address] PCP - General Family Practice 06/04/10 documented as of this encounter
--- OUTSIDE RECORDS SUMMARY | 2024-10-07 17:09 | XMS_ITS | Encounter Summary ---
Author Organization [facility] Address [address] [facility] [place] [address] Care Team Providers Care Lead Developer Name Role Phone Consuelo Rand Carl POTTER Primary Care Provider Encounter Details Date Type Department Care Team (Late st Contact Info) Description 05/05/2017 Lab Requisition [facility] General Laboratory Services [place] [address] [place] [address] Apolinar Butler DO NO ADDRESS ON FILE Social History Tobacco Use Types Packs/Day Years Used Date Smoking Tobacco: Never Alcohol Use Standard Drinks/Week Comments No 0 (1 standard drink = 0.6 oz pur e alcohol) Comments No Sex and Gender Information Value Date Recorded Sex Assigned at Not on file 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 TRADING ASSISTANT Gender Identity Not on file Sexual Orientation Not on file documented as of this encounter Plan of Treatment Not on file documented as of this encounter Procedures Procedure Name Priority Date/Time Associated Diagnosis Comments BRAIN NATRIURETIC PEPTIDE, BNP OR PROBNP Routine 05/05/2017 8:15 PM TRADING ASSISTANT BASIC METABOLIC PANEL Routine 05/05/2017 8:15 PM TRADING ASSISTANT documented in this encounter Results * BRAIN NATRIURETIC PEPTIDE, BNP OR PROBNP (05/05/2017 8:15 PM TRADING ASSISTANT) PROBNP, N TERMINAL 75 0 - 125 pg/mL 05/05/2017 10:53 PM TRADING ASSISTANT [facility] Blood Venipuncture / Unknown 05/05/2017 8:15 PM TRADING ASSISTANT 05/05/2017 10:08 PM TRADING ASSISTANT us Apolinar Butler DO CHEMISTRY ORDERABLES [id number] [address] [place] [address] * BASIC METABOLIC PANEL (05/05/2017 8:15 PM TRADING ASSISTANT) SODIUM 143 136 - 145 mmol/L 05/05/2017 10:53 PM [facility] POTASSIUM 3.8 3.5 - 5.1 mmol/L 05/05/2017 10:53 PM [facility] CHLORIDE 103 98 - 107 mmol/L 05/05/2017 10:53 PM [facility] CO2 28 22 - 29 mmol/L 05/05/2017 10:53 PM [facility] CALCIUM 9.8 8.6 - 10.0 mg/dL 05/05/2017 10:53 PM [facility] BUN 17 6 - 20 mg/dL 05/05/2017 10:53 PM [facility] CREATININE 0.69 0.51 - 0.95 mg/dL 05/05/2017 10:53 PM [facility] GLUCOSE 97 74 - 106 mg/dL 05/05/2017 10:53 PM [facility] GFR >60 >=60 mL/min/1.7 3 sq meter 05/05/2017 10:53 PM [facility] Comment: eGFR has not been validated [...] GFR, >60 >=60 mL/min/1.7 3 sq meter 05/05/2017 10:53 PM [facility] ANION GAP 12 12 - 20 mmol/L 05/05/2017 10:53 PM TRADING ASSISTANT [facility] Blood Venipuncture / Unknown 05/05/2017 8:15 PM TRADING ASSISTANT 05/05/2017 10:08 PM TRADING ASSISTANT us Apolinar Butler DO CHEMISTRY ORDERABLES Final Resu lt [facility] CLIA # [id number] [address] [place] [address] documented in this encounter Visit Diagnoses Not on filedocumented in this encounter Additional Health Concerns Infection Onset Date Last Indicated Resolved Time MRSA Comment:Abscess 11/14/15 11/17/2015 11/17/2015 documented as of this encounter Care Teams Lead Developer Relationship Specialty Start Date End Date Consuelo Rnad DO [address] [place] [address] PCP - General Family Practice 06/04/10 documented as of this encounter
--- OUTSIDE RECORDS SUMMARY | 2024-10-07 17:09 | XMS_ITS | Encounter Summary ---
Author Organization [facility] Address [address] [place] [address] Care Team Providers Care Gold Miner Blasting Name Role Phone Consuelo Rand Carl POTTER Primary Care Provider Encounter Details Date Type Department Care Team (Late st Contact Info) Description 03/16/2018 Lab Requisition [facility] General Laboratory Services [place] [address] [place] [address] Apolinar Butler DO NO ADDRESS ON FILE Social History Tobacco Use Types Packs/Day Years Used Date Smoking Tobacco: Never Alcohol Use Standard Drinks/Week Comments No 0 (1 standard drink = 0.6 oz pur e alcohol) Comments No Sex and Gender Information Value Date Recorded Sex Assigned at Not on file 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 INTERNATIONAL TAX MANAGER Gender Identity Not on file Sexual Orientation Not on file documented as of this encounter Plan of Treatment Not on file documented as of this encounter Procedures Procedure Name Priority Date/Time Associated Diagnosis Comments ALT Routine 03/16/2018 10:30 PM INTERNATIONAL TAX MANAGER LIPID PANEL Routine 03/16/2018 10:30 PM INTERNATIONAL TAX MANAGER documented in this encounter Results * (ABNORMAL) LIPID PANEL (03/16/2018 10:30 PM INTERNATIONAL TAX MANAGER) CHOLESTEROL 126 <200 mg/dL 03/17/2018 4:33 AM INTERNATIONAL TAX MANAGER [facility] TRIGLYCERIDE 80 <150 mg/dL 03/17/2018 4:33 AM INTERNATIONAL TAX MANAGER [facility] HDL 63(H) 40 - 59 mg/dL 03/17/2018 4:33 AM INTERNATIONAL TAX MANAGER [facility] LDL CALCULATED 47 <100 mg/dL 03/17/2018 4:33 AM INTERNATIONAL TAX MANAGER [facility] NON-HDL CHOLESTEROL 63 <130 mg/dL 03/17/2018 4:33 AM [facility] Blood Collection / Unknown 03/16/2018 10:30 PM INTERNATIONAL TAX MANAGER 03/17/2018 3:42 AM INTERNATIONAL TAX MANAGER Narrative [facility] - 03/17/2018 4:33 AM INTERNATIONAL TAX MANAGER TOTAL CHOLESTEROL mg/dL Desirable <200 Borderline high [...] ORDERABLES Final Resu lt Performing Organization Address City/[facility] Co de Phone Number [facility] CLIA # [id number] [address] [place] [phone] * ALT (03/16/2018 10:30 PM INTERNATIONAL TAX MANAGER) ALT 29 10 - 35 U/L 03/17/2018 4:33 AM INTERNATIONAL TAX MANAGER [facility] Blood Collection / Unknown 03/16/2018 10:30 PM INTERNATIONAL TAX MANAGER 03/17/2018 3:42 AM INTERNATIONAL TAX MANAGER us Apolinar Butler DO CHEMISTRY ORDERABLES Final Resu lt Performing Organization Address City/[facility]/ZIP Co de Phone Number [facility] CLIA # [id number] [address] [place] [address] documented in this encounter Visit Diagnoses Not on filedocumented in this encounter Additional Health Concerns Infection Onset Date Last Indicated Resolved Time MRSA Comment:Abscess 11/14/15 11/17/2015 11/17/2015 documented as of this encounter Care Teams Gold Miner Blasting Relationship Specialty Start Date End Date Consuelo Rand DO [address] [place] [address] PCP - General Family Practice 06/04/10 documented as of this encounter
--- OUTSIDE RECORDS SUMMARY | 2024-10-07 17:09 | XMS_ITS | Encounter Summary ---
Author Organization [facility] Address [address] [place] [address] Care Team Providers Care Federal Judge Name Role Phone Consuelo Rand Carl POTTER Primary Care Provider Encounter Details Date Type Department Care Team (Late st Contact Info) Description 06/15/2018 Lab Requisition [facility] General Laboratory Services [place] [address] [place] [address] Apolinar Butler DO NO ADDRESS ON FILE Social History Tobacco Use Types Packs/Day Years Used Date Smoking Tobacco: Never Alcohol Use Standard Drinks/Week Comments No 0 (1 standard drink = 0.6 oz pur e alcohol) Comments No Sex and Gender Information Value Date Recorded Sex Assigned at Not on file 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 AIR ANALYSIS TECHNICIAN Gender Identity Not on file Sexual Orientation Not on file documented as of this encounter Plan of Treatment Not on file documented as of this encounter Procedures Procedure Name Priority Date/Time Associated Diagnosis Comments ALT Routine 06/15/2018 10:00 PM CDT LIPID PANEL Routine 06/15/2018 10:00 PM CDT documented in this encounter Results * (ABNORMAL) LIPID PANEL (06/15/2018 10:00 PM CDT) CHOLESTEROL 135 <200 mg/dL 06/16/2018 1:28 AM CDT [facility] TRIGLYCERIDE 45 <150 mg/dL 06/16/2018 1:28 AM CDT [facility] HDL 76(H) 40 - 59 mg/dL 06/16/2018 1:28 AM CDT [facility] LDL CALCULATED 50 <100 mg/dL 06/16/2018 1:28 AM CDT [facility] NON-HDL CHOLESTEROL 59 <130 mg/dL 06/16/2018 1:28 AM CDT [facility] Blood Collection / Unknown 06/15/2018 10:00 PM CDT 06/16/2018 12:48 AM CDT Narrative [facility] - 06/16/2018 1:28 AM CDT TOTAL CHOLESTEROL mg/dL Desirable <200 [...] ORDERABLES Final Resu lt Performing Organization Address City/[facility]/ZIP Co de Phone Number [facility] CLIA # [id number] [address] [place] [address] * ALT (06/15/2018 10:00 PM CDT) ALT 21 10 - 35 U/L 06/16/2018 1:27 AM CDT [facility] Blood Collection / Unknown 06/15/2018 10:00 PM CDT 06/16/2018 12:48 AM CDT us Apolinar Butler DO CHEMISTRY ORDERABLES Final Resu lt Performing Organization Address [facility] Co de Phone Number [facility] CLIA # [id number] [address] [place] [phone] documented in this encounter Visit Diagnoses Not on filedocumented in this encounter Additional Health Concerns Infection Onset Date Last Indicated Resolved Time MRSA Comment:Abscess 11/14/15 11/17/2015 11/17/2015 documented as of this encounter Care Teams Federal Judge Relationship Specialty Start Date End Date Consuelo Rand DO [address] [place] [address] PCP - General Family Practice 06/04/10 documented as of this encounter
--- OUTSIDE RECORDS SUMMARY | 2024-10-07 17:09 | XMS_ITS | Encounter Summary ---
Author Organization [facility] Address [address] [facility] [place] [address] Care Team Providers Care Barbering Teacher Name Role Phone Consuelo Rand Calr POTTER Primary Care Provider Encounter Details Date Type Department Care Team (Late st Contact Info) Description 03/03/2017 Lab Requisition [facility] General Laboratory Services [place] [address] [place] [address] Apolinar Butler DO NO ADDRESS ON FILE Social History Tobacco Use Types Packs/Day Years Used Date Smoking Tobacco: Never Alcohol Use Standard Drinks/Week Comments No 0 (1 standard drink = 0.6 oz pur e alcohol) Comments No Sex and Gender Information Value Date Recorded Sex Assigned at Not on file 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 TRACK ANNOUNCER Gender Identity Not on file Sexual Orientation Not on file documented as of this encounter Plan of Treatment Not on file documented as of this encounter Procedures Procedure Name Priority Date/Time Associated Diagnosis Comments LIPID PANEL Routine 03/03/2017 7:50 PM TRACK ANNOUNCER COMPREHENSIVE METABOLIC PANEL Routine 03/03/2017 7:50 PM TRACK ANNOUNCER documented in this encounter Results * (ABNORMAL) LIPID PANEL (03/03/2017 7:50 PM TRACK ANNOUNCER) CHOLESTEROL 257(H) <200 mg/dL 03/03/2017 10:06 PM TRACK ANNOUNCER [facility] TRIGLYCERIDE 154(H) <150 mg/dL 03/03/2017 10:06 PM TRACK ANNOUNCER [facility] HDL 76(H) 40 - 59 mg/dL 03/03/2017 10:06 PM [facility] LDL CALCULATED 150(H) <100 mg/dL 03/03/2017 10:06 PM [facility] NON-HDL CHOLESTEROL 181(H) <130 mg/dL 03/03/2017 10:06 PM [facility] Blood Venipuncture / Unknown 03/03/2017 7:50 PM TRACK ANNOUNCER 03/03/2017 9:23 PM [facility] - 03/03/2017 10:06 PM TRACK ANNOUNCER TOTAL CHOLESTEROL mg/dL Desirable <200 Borderline high [...] Butler DO CHEMISTRY ORDERABLES Final Resu lt [facility] CLIA # [id number] [address] [place] [address] * (ABNORMAL) COMPREHENSIVE METABOLIC PANEL (03/03/2017 7:50 PM TRACK ANNOUNCER) SODIUM 142 136 - 145 mmol/L 03/03/2017 10:06 PM [facility] POTASSIUM 3.7 3.5 - 5.1 mmol/L 03/03/2017 10:06 PM [facility] CHLORIDE 98 98 - 107 mmol/L 03/03/2017 10:06 PM [facility] CO2 28 22 - 29 mmol/L 03/03/2017 10:06 PM [facility] CALCIUM 10.1(H) 8.6 - 10.0 mg/dL 03/03/2017 10:06 PM [facility] BUN 11 6 - 20 mg/dL 03/03/2017 10:06 PM [facility] CREATININE 0.71 0.51 - 0.95 mg/dL 03/03/2017 10:06 PM [facility] GLUCOSE 80 74 - 106 mg/dL 03/03/2017 10:06 PM [facility] TOTAL PROTEIN 8.0 6.6 - 8.7 g/dL 03/03/2017 10:06 PM [facility] ALBUMIN 4.6 3.5 - 5.2 g/dL 03/03/2017 10:06 PM [facility] BILIRUBIN TOTAL 0.5 0.0 - 1.2 mg/dL 03/03/2017 10:06 PM [facility] ALKALINE PHOSPHATASE 82 35 - 104 U/L 03/03/2017 10:06 PM [facility] AST 38(H) 10 - 35 U/L 03/03/2017 10:06 PM [facility] ALT 48(H) 10 - 35 U/L 03/03/2017 10:06 PM [facility] GFR >60 >=60 mL/min/1.7 3 sq meter 03/03/2017 10:06 PM [facility] Comment: eGFR has not been validated [...] GFR, >60 >=60 mL/min/1.7 3 sq meter 03/03/2017 10:06 PM [facility] ANION GAP 16 12 - 20 mmol/L 03/03/2017 10:06 PM [facility] Blood Venipuncture / Unknown 03/03/2017 7:50 PM TRACK ANNOUNCER 03/03/2017 9:23 PM TRACK ANNOUNCER us Apolinar Butler DO CHEMISTRY ORDERABLES Final Resu lt [facility] CLIA # [id number] [address] [place] [phone] documented in this encounter Visit Diagnoses Not on filedocumented in this encounter Additional Health Concerns Infection Onset Date Last Indicated Resolved Time MRSA Comment:Abscess 11/14/15 11/17/2015 11/17/2015 documented as of this encounter Care Teams Barbering Teacher Relationship Specialty Start Date End Date Consuelo Rand DO [address] [place] [address] PCP - General Family Practice 06/04/10 documented as of this encounter
--- OUTSIDE RECORDS SUMMARY | 2024-10-07 17:09 | XMS_ITS | Encounter Summary ---
Author Organization [facility] Address [address] [place] [address] Care Team Providers Care Telephoner Name Role Phone Consuelo Rand Carl POTTER Primary Care Provider [phone] Encounter Details Date Type Department Care Team (Late st Contact Info) Description 09/28/2018 Lab Requisition [facility] General Laboratory Services [place] [address] [place] [address] Apolinar Butler DO NO ADDRESS ON FILE Social History Tobacco Use Types Packs/Day Years Used Date Smoking Tobacco: Never Alcohol Use Standard Drinks/Week Comments No 0 (1 standard drink = 0.6 oz pur e alcohol) Comments No Sex and Gender Information Value Date Recorded Sex Assigned at Not on file 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 COMPLEX CARE NURSE Gender Identity Not on file Sexual Orientation Not on file documented as of this encounter Plan of Treatment Not on file documented as of this encounter Procedures Procedure Name Priority Date/Time Associated Diagnosis Comments ALT Routine 09/28/2018 8:30 PM CDT LIPID PANEL Routine 09/28/2018 8:30 PM CDT documented in this encounter Results * (ABNORMAL) LIPID PANEL (09/28/2018 8:30 PM CDT) CHOLESTEROL 155 <200 mg/dL 09/28/2018 10:45 PM CDT [facility] TRIGLYCERIDE 55 <150 mg/dL 09/28/2018 10:45 PM CDT [facility] HDL 84(H) 40 - 59 mg/dL 09/28/2018 10:45 PM CDT [facility] LDL CALCULATED 60 <100 mg/dL 09/28/2018 10:45 PM CDT [facility] NON-HDL CHOLESTEROL 71 <130 mg/dL 09/28/2018 10:45 PM CDT [facility] Blood Collection / Unknown 09/28/2018 8:30 PM CDT 09/28/2018 10:22 PM CDT Narrative [facility] - 09/28/2018 10:45 PM CDT TOTAL CHOLESTEROL mg/dL Desirable <200 [...] ORDERABLES Final Resu lt Performing Organization Address City/[facility]/ZIP Co de Phone Number [facility] CLIA # [id number] [address] [place] [address] * ALT (09/28/2018 8:30 PM CDT) ALT 24 10 - 35 U/L 09/28/2018 10:45 PM CDT [facility] Blood Collection / Unknown 09/28/2018 8:30 PM CDT 09/28/2018 10:22 PM CDT us Apolinar Butler DO CHEMISTRY ORDERABLES Final Resu lt Performing Organization Address [facility]/ZIP Co de Phone Number [facility] CLIA # [id number] [address] [place] [phone] documented in this encounter Visit Diagnoses Not on filedocumented in this encounter Additional Health Concerns Infection Onset Date Last Indicated Resolved Time MRSA Comment:Abscess 11/14/15 11/17/2015 11/17/2015 documented as of this encounter Care Teams Telephoner Relationship Specialty Start Date End Date Consuelo Rand DO [address] [place] [address] PCP - General Family Practice 06/04/10 documented as of this encounter
--- OUTSIDE RECORDS SUMMARY | 2024-10-07 17:09 | XMS_ITS | Encounter Summary ---
Author Organization [facility] Address [address] [facility] [place] [address] Care Team Providers Care Pipe Cleaning Machine Operator Name Role Phone Consuelo Rand Carl POTTER Primary Care Provider [phone] Encounter Details Date Type Department Care Team (Late st Contact Info) Description 07/28/2017 Lab Requisition [facility] General Laboratory Services [place] [address] [place] [address] Apolinar Butler DO NO ADDRESS ON FILE Social History Tobacco Use Types Packs/Day Years Used Date Smoking Tobacco: Never Alcohol Use Standard Drinks/Week Comments No 0 (1 standard drink = 0.6 oz pur e alcohol) Comments No Sex and Gender Information Value Date Recorded Sex Assigned at Not on file 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 NATIONAL GUARD MEMBER Gender Identity Not on file Sexual Orientation Not on file documented as of this encounter Plan of Treatment Not on file documented as of this encounter Procedures Procedure Name Priority Date/Time Associated Diagnosis Comments LIPID PANEL Routine 07/28/2017 9:00 PM CDT COMPREHENSIVE METABOLIC PANEL Routine 07/28/2017 9:00 PM CDT documented in this encounter Results * (ABNORMAL) LIPID PANEL (07/28/2017 9:00 PM CDT) CHOLESTEROL 176 <200 mg/dL 07/28/2017 11:50 PM CDT [facility] TRIGLYCERIDE 87 <150 mg/dL 07/28/2017 11:50 PM CDT [facility] HDL 78(H) 40 - 59 mg/dL 07/28/2017 11:50 PM T [facility] LDL CALCULATED 81 <100 mg/dL 07/28/2017 11:50 PM [facility] NON-HDL CHOLESTEROL 98 <130 mg/dL 07/28/2017 11:50 PM [facility] Blood Collection / Unknown 07/28/2017 9:00 PM CDT 07/28/2017 9:28 PM CDT [facility] - 07/28/2017 11:50 PM CDT TOTAL CHOLESTEROL mg/dL Desirable <200 [...] Butler DO CHEMISTRY ORDERABLES Final Resu lt [facility] CLIA # [id number] [address] [place] [address] * (ABNORMAL) COMPREHENSIVE METABOLIC PANEL (07/28/2017 9:00 PM CDT) SODIUM 143 136 - 145 mmol/L 07/28/2017 11:50 PM [facility] POTASSIUM 3.6 3.5 - 5.1 mmol/L 07/28/2017 11:50 PM [facility] CHLORIDE 98 98 - 107 mmol/L 07/28/2017 11:50 PM [facility] CO2 28 22 - 29 mmol/L 07/28/2017 11:50 PM [facility] CALCIUM 9.8 8.6 - 10.0 mg/dL 07/28/2017 11:50 PM [facility] BUN 11 6 - 20 mg/dL 07/28/2017 11:50 PM [facility] CREATININE 0.72 0.51 - 0.95 mg/dL 07/28/2017 11:50 PM [facility] GLUCOSE 84 74 - 106 mg/dL 07/28/2017 11:50 PM [facility] TOTAL PROTEIN 8.0 6.6 - 8.7 g/dL 07/28/2017 11:50 PM [facility] ALBUMIN 4.7 3.5 - 5.2 g/dL 07/28/2017 11:50 PM [facility] BILIRUBIN TOTAL 0.6 0.0 - 1.2 mg/dL 07/28/2017 11:50 PM [facility] ALKALINE PHOSPHATASE 93 35 - 104 U/L 07/28/2017 11:50 PM [facility] AST 39(H) 10 - 35 U/L 07/28/2017 11:50 PM [facility] ALT 46(H) 10 - 35 U/L 07/28/2017 11:50 PM [facility] GFR >60 >=60 mL/min/1.7 3 sq meter 07/28/2017 11:50 PM [facility] Comment: eGFR has not been validated [...] GFR, >60 >=60 mL/min/1.7 3 sq meter 07/28/2017 11:50 PM [facility] ANION GAP 17 12 - 20 mmol/L 07/28/2017 11:50 PM [facility] Blood Collection / Unknown 07/28/2017 9:00 PM CDT 07/28/2017 9:28 PM CDT us Apolinar Butler DO CHEMISTRY ORDERABLES Final Resu lt [facility] # [id number] [address] [place] [address] documented in this encounter Visit Diagnoses Not on filedocumented in this encounter Additional Health Concerns Infection Onset Date Last Indicated Resolved Time MRSA Comment:Abscess 11/14/15 11/17/2015 11/17/2015 documented as of this encounter Care Teams Pipe Cleaning Machine Operator Relationship Specialty Start Date End Date Consuelo Rand DO [address] [place] [phone] PCP - General Family Practice 06/04/10 documented as of this encounter
--- OUTSIDE RECORDS SUMMARY | 2024-10-07 18:01 | XMS_ITS | Encounter Summary ---
Author Organization [facility] Address [address] [place] [address] Care Team Providers Care Mechanical System Technician Name Role Phone Consuelo Rand Carl POTTER Primary Care Provider Encounter Details Date Type Department Care Team (Late st Contact Info) Description 09/08/2017 Lab Requisition [facility] General Laboratory Services [place] [address] [place] [address] Apolinar Butler DO NO ADDRESS ON FILE Social History Tobacco Use Types Packs/Day Years Used Date Smoking Tobacco: Never Alcohol Use Standard Drinks/Week Comments No 0 (1 standard drink = 0.6 oz pur e alcohol) Comments No Sex and Gender Information Value Date Recorded Sex Assigned at Not on file 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[employer] Gender Identity Not on file Sexual Orientation [...] - 0.3 mg/dL 09/08/2017 9:42 PM CDT [facility] Blood Collection / Unknown 09/08/2017 8:00 PM CDT 09/08/2017 9:14 PM CDT us Apolinar Butler DO CHEMISTRY ORDERABLES Final Resu lt [facility] CLIA # [id number] [address] [place] [address] * (ABNORMAL) LIPID PANEL (09/08/2017 8:00 PM CDT) CHOLESTEROL 204(H) <200 mg/dL 09/08/2017 9:45 PM CDT [facility] TRIGLYCERIDE 93 <150 mg/dL 09/08/2017 9:45 PM CDT [facility] HDL 71(H) 40 - 59 mg/dL 09/08/2017 9:45 PM CDT [facility] LDL CALCULATED 114(H) <100 mg/dL 09/08/2017 9:45 PM CDT [facility] NON-HDL CHOLESTEROL 133(H) <130 mg/dL 09/08/2017 9:45 PM CDT [facility] Blood Collection / Unknown 09/08/2017 8:00 PM CDT 09/08/2017 9:14 PM CDT Narrative [facility] - 09/08/2017 9:45 PM CDT TOTAL CHOLESTEROL [...] Butler DO CHEMISTRY ORDERABLES Final Resu lt [facility] CLIA # [id number] [address] [place] [address] * (ABNORMAL) COMPREHENSIVE METABOLIC PANEL (09/08/2017 8:00 PM CDT) SODIUM 139 136 - 145 mmol/L 09/08/2017 9:45 PM [facility] POTASSIUM 3.7 3.5 - 5.1 mmol/L 09/08/2017 9:45 PM [facility] CHLORIDE 96(L) 98 - 107 mmol/L 09/08/2017 9:45 PM [facility] CO2 28 22 - 29 mmol/L 09/08/2017 9:45 PM [facility] CALCIUM 9.6 8.6 - 10.0 mg/dL 09/08/2017 9:45 PM [facility] BUN 12 6 - 20 mg/dL 09/08/2017 9:45 PM [facility] CREATININE 0.78 0.51 - 0.95 mg/dL 09/08/2017 9:45 PM [facility] GLUCOSE 86 74 - 106 mg/dL 09/08/2017 9:45 PM [facility] TOTAL PROTEIN 7.5 6.6 - 8.7 g/dL 09/08/2017 9:45 PM [facility] ALBUMIN 4.7 3.5 - 5.2 g/dL 09/08/2017 9:45 PM [facility] BILIRUBIN TOTAL 0.5 0.0 - 1.2 mg/dL 09/08/2017 9:45 PM [facility] ALKALINE PHOSPHATASE 83 35 - 104 U/L 09/08/2017 9:45 PM [facility] AST 35 10 - 35 U/L 09/08/2017 9:45 PM [facility] ALT 43(H) 10 - 35 U/L 09/08/2017 9:45 PM [facility] GFR >60 >=60 mL/min/1.7 3 sq meter 09/08/2017 9:45 PM [facility] Comment: eGFR has not been validated for [...] 3 sq meter 09/08/2017 9:45 PM CDT [facility] ANION GAP 15 12 - 20 mmol/L 09/08/2017 9:45 PM CDT [facility] Blood Collection / Unknown 09/08/2017 8:00 PM CDT 09/08/2017 9:14 PM CDT us Apolinar Butler DO CHEMISTRY ORDERABLES Final Resu lt [facility] CLIA # [id number] [address] [place] [address] documented in this encounter Visit Diagnoses Not on filedocumented in this encounter Additional Health Concerns Infection Onset Date Last Indicated Resolved Time MRSA Comment:Abscess 11/14/15 11/17/2015 11/17/2015 documented as of this encounter Care Teams Mechanical System Technician Relationship Specialty Start Date End Date Consuelo Rand DO [address] [place] [address] PCP - General Family Practice 06/04/10 documented as of this encounter
--- OUTSIDE RECORDS SUMMARY | 2024-10-07 18:01 | XMS_ITS | Encounter Summary ---
Author Organization [facility] Address [address] [place] [address] Care Team Providers Care Cow Rider Name Role Phone Consuelo Rand Carl POTTER Primary Care Provider Encounter Details Date Type Department Care Team (Late st Contact Info) Description 10/13/2013 Ancillary Orders [facility] Laboratory Services [place] [address] [place] [address] Social History Tobacco Use Types Packs/Day Years Used Date Smoking Tobacco: Never Alcohol Use Standard Drinks/Week Comments No 0 (1 standard drink = 0.6 oz pur e alcohol) Comments No Sex and Gender Information Value Date Recorded Sex Assigned at Not on file 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 Gender Identity Not on file Sexual Orientation [...] - 10.0 K/uL 10/13/2013 12:17 PM CDT [facility] [place] RBC 4.39 3.93 - 5.22 M/uL 10/13/2013 12:17 PM CDT [facility] [place] HEMOGLOBIN 13.4 11.2 - 15.7 g/dL 10/13/2013 12:17 PM CDT [facility] [place] HEMATOCRIT 40.6 34.1 - 44.9 % 10/13/2013 12:17 PM CDT [facility] [place] MCV 92.5 79.4 - 94.8 fL 10/13/2013 12:17 PM CDT [facility] [place] MCH 30.5 25.6 - 32.2 pg 10/13/2013 12:17 PM CDT [facility] [place] MCHC 33.0 32.2 - 35.5 g/dL 10/13/2013 12:17 PM CDT [facility] [place] RDW 13.8 11.0 - 14.5 % 10/13/2013 12:17 PM CDT [facility] [place] RDW-STDEV 45.3 36.9 - 56.9 fL 10/13/2013 12:17 PM CDT [facility] [place] PLATELETS 297 163 - 337 K/uL 10/13/2013 12:17 PM CDT [facility] [place] MPV 9.9(L) 10.0 - 14.8 fL 10/13/2013 12:17 PM CDT [facility] [place] NEUTROPHILS 63 34 - 71 % 10/13/2013 12:17 PM CDT [facility] [place] LYMPHOCYTES 25 19 - 52 % 10/13/2013 12:17 PM CDT [facility] [place] MONOCYTES 9 5 - 13 % 10/13/2013 12:17 PM CDT [facility] [place] EOSINOPHILS 2 1 - 6 % 10/13/2013 12:17 PM CDT [facility] [place] BASOPHILS 1 0 - 1 % 10/13/2013 12:17 PM CDT [facility] [place] NEUTROPHIL ABSOLUTE 5.82 1.56 - 6.13 K/uL 10/13/2013 12:17 PM CDT [facility] [place] LYMPHOCYTE ABSOLUTE 2.30 1.20 - 3.40 K/uL 10/13/2013 12:17 PM CDT [facility] [place] MONOCYTE ABSOLUTE 0.84(H) 0.24 - 0.36 K/uL 10/13/2013 12:17 PM CDT [facility] [place] EOSINOPHIL ABSOLUTE 0.15 0.04 - 0.36 K/uL 10/13/2013 12:17 PM CDT [facility] [place] BASOPHILS ABSOLUTE 0.06 0.01 - 0.08 K/uL 10/13/2013 12:17 PM CDT [facility] [place] IMMATURE GRANULOCYTES 0 % 10/13/2013 12:17 PM CDT [facility] [place] IMMATURE GRANULOCYTES ABSOLUTE 0.02 K/uL 10/13/2013 12:17 PM T [facility]ORY [facility] [place] [facility] Blood Venipuncture - L ab Collect / Unknown 10/13/2013 9:50 AM CDT 10/13/2013 10:57 AM CDT us Consuelo Rand DO HEMATOLOGY ORDERABLES Final Result [facility] [place] CLIA # [id number] [address] [place] [address] * COMPREHENSIVE METABOLIC PANEL (10/13/2013 9:50 AM CDT) SODIUM 140 136 - 145 mmol/L 10/13/2013 1:05 PM CDT [facility] [place] POTASSIUM 3.9 3.5 - 5.1 mmol/L 10/13/2013 1:05 PM CDT [facility] [place] CHLORIDE 103 98 - 107 mmol/L 10/13/2013 1:05 PM CDT [facility] [place] CO2 27 21 - 32 mmol/L 10/13/2013 1:05 PM CDT [facility]ORATORY [facility] [place] [facility] CALCIUM 9.2 8.5 - 10.1 mg/dL 10/13/2013 1:05 PM CDT [facility] BUN 15 7 - 18 mg/dL 10/13/2013 1:05 PM [facility] CREATININE 0.90 0.60 - 1.30 mg/dL 10/13/2013 1:05 PM [facility] GLUCOSE 80 74 - 106 mg/dL 10/13/2013 1:05 PM [facility] TOTAL PROTEIN 7.8 6.4 - 8.2 g/dL 10/13/2013 1:05 PM [facility] ALBUMIN 3.9 3.4 - 5.0 g/dL 10/13/2013 1:05 PM [facility] BILIRUBIN TOTAL 0.5 0.2 - 1.0 mg/dL 10/13/2013 1:05 PM [facility] ALKALINE PHOSPHATASE 117 50 - 136 U/L 10/13/2013 1:05 PM [facility] AST 26 15 - 37 U/L 10/13/2013 1:05 PM [facility] ALT 38 30 - 65 U/L 10/13/2013 1:05 PM [facility] GFR >60 >=60 mL/min/1.7 3 sq meter 10/13/2013 1:05 PM [facility] Comment: eGFR has not been validated [...] mL/min/1.7 3 sq meter 10/13/2013 1:05 PM [facility] Blood Venipuncture - L ab Collect / Unknown 10/13/2013 9:50 AM CDT 10/13/2013 10:57 AM CDT us Consuelo L Keyona DO CHEMISTRY ORDERABLES Final Result Performing Organization Address [facility]/ZIP Co de Phone Number [facility] CLIA # [id number] [address] [place] [address] * TSH (10/13/2013 9:50 AM CDT) TSH 0.94 0.30 - 4.80 uIU/mL 10/13/2013 1:05 PM CDT [facility] Blood Venipuncture - L ab Collect / Unknown 10/13/2013 9:50 AM CDT 10/13/2013 10:57 AM CDT Consuelo Rand DO CHEMISTRY ORDERABLES Final Result Performing Organization Address [facility] Co de Phone Number [facility] CLIA # [id number] [address] [place] [address] * IRON LEVEL (10/13/2013 9:50 AM CDT) Pathologist [facility] IRON 79 50 - 170 ug/dL 10/13/2013 1:06 PM CDT [facility] Blood Venipuncture - L ab Collect / Unknown 10/13/2013 9:50 AM CDT 10/13/2013 10:57 AM CDT Consuelo Rand DO CHEMISTRY ORDERABLES Final Result Performing Organization Address City/[facility]/ZIP Co de Phone Number [facility] CLIA # [id number] [address] [place] [address] * HEMOGLOBIN A1C (10/13/2013 9:50 AM CDT) HEMOGLOBIN A1C 5.8 4.5 - 6.2 % 10/13/2013 2:40 PM CDT [facility] EST. AVG GLUCOSE, A1C 120 mg/dL 10/13/2013 2:40 PM CDT [facility] Blood Venipuncture - L ab Collect / Unknown 10/13/2013 9:50 AM CDT 10/13/2013 10:57 AM CDT Consuelo Rand DO CHEMISTRY ORDERABLES Final Result Performing Organization Address City/[facility]/ZIP Co de Phone Number [facility] [employer] [facility] CLIA # [id number] [address] [place] [address] * (ABNORMAL) LIPID PANEL (10/13/2013 9:50 AM CDT) CHOLESTEROL 223(H) 130 - 200 mg/dL 10/13/2013 1:05 PM CDT [facility] [place] TRIGLYCERIDE 153 30 - 200 mg/dL 10/13/2013 1:05 PM CDT [facility] [employer] [facility] [place] HDL 62 35 - 80 mg/dL 10/13/2013 1:05 PM CDT [facility] [employer] [facility] LDL CALCULATED 130(H) 0 - 100 mg/dL 10/13/2013 1:05 PM CDT [facility] [employer] [facility] Blood Venipuncture - L ab Collect / Unknown 10/13/2013 9:50 AM CDT 10/13/2013 10:57 AM CDT Narrative [facility] LABORATORY [facility] [place] - 10/13/2013 1:05 PM CDT TOTAL CHOLESTEROL mg/dL Desirable <200 Borderline high 200-239 High >=240 TRIGLYCERIDES mg/dL Normal <150 Borderline high 150-199 High 200-499 Very high >=500 HDL CHOLESTEROL mg/dL Low <40 Normal 40-60 Desirable >60 LDL CHOLESTEROL mg/dL Optimal <100 Low risk 100-129 Borderline high 130-159 High 160-189 Very high >=190 Based on AHA/NCEP Guidelines Consuelo Rand DO CHEMISTRY ORDERABLES Final Result [facility] [employer] [facility] CLIA # [id number] [address] [place] [address] documented in this encounter Visit Diagnoses Not on filedocumented in this encounter Additional Health Concerns Infection Onset Date Last Indicated Resolved Time MRSA Comment:Abscess 11/14/15 11/17/2015 11/17/2015 documented as of this encounter Care Teams Cow Rider Relationship Specialty Start Date End Date Consuelo Rand DO [address] [place] [phone] PCP - General Family Practice 06/04/10 documented as of this encounter
--- OUTSIDE RECORDS SUMMARY | 2024-10-07 18:01 | XMS_ITS | Encounter Summary ---
Author Organization [facility] Address [address] [place] [address] Care Team Providers Care Car Wash Attendant Automatic Name Role Phone Consuelo Rand Carl POTTER Primary Care Provider Encounter Details Date Type Department Care Team (Late st Contact Info) Description 06/24/2012 Ancillary Orders [facility] Laboratory Services [place] [address] [place] [address] Social History Tobacco Use Types Packs/Day Years Used Date Smoking Tobacco: Never Alcohol Use Standard Drinks/Week Comments No 0 (1 standard drink = 0.6 oz pur e alcohol) Comments No Sex and Gender Information Value Date Recorded Sex Assigned at Not on file 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 TRIGLYCERIDE 123 30 - 200 mg/dL 07/01/2012 1:27 PM CDT [facility] [employer] [facility] HDL 71 35 - 80 mg/dL 07/01/2012 1:27 PM CDT [facility] [employer] [facility] LDL CALCULATED 161(H) 0 - 100 mg/dL 07/01/2012 1:27 PM CDT [facility] [employer] [facility] Blood specimen (specimen) 06/24/2012 9:30 AM CDT 06/24/2012 9:34 AM CDT Narrative [facility] [employer] [facility] - 07/01/2012 1:27 PM CDT TOTAL CHOLESTEROL mg/dL Desirable <200 Borderline high 200-239 High >=240 TRIGLYCERIDES mg/dL Normal <150 Borderline high 150-199 High 200-499 Very high >=500 HDL CHOLESTEROL mg/dL Low <40 Normal 40-60 Desirable >60 LDL CHOLESTEROL mg/dL Optimal <100 Low risk 100-129 Borderline high 130-159 High 160-189 Very high >=190 Based on AHA/NCEP Guidelines Consuelo Rand DO CHEMISTRY ORDERABLES Final Result [facility] [employer] [facility] CLIA # [id number] [address] [place] [address] * (ABNORMAL) CBC WITH DIFFERENTIAL (06/24/2012 9:30 AM CDT) WBC 7.8 4.0 - 10.0 K/uL 06/24/2012 12:31 PM CDT [facility] [employer] [facility] RBC 4.75 3.93 - 5.22 M/uL 06/24/2012 12:31 PM CDT [facility] [employer] [facility] HEMOGLOBIN 14.3 11.2 - 15.7 g/dL 06/24/2012 12:31 PM CDT [facility] [place] HEMATOCRIT 43.2 34.1 - 44.9 % 06/24/2012 12:31 PM CDT [facility] [place] MCV 90.9 79.4 - 94.8 fL 06/24/2012 12:31 PM CDT [facility] [place] MCH 30.1 25.6 - 32.2 pg 06/24/2012 12:31 PM CDT [facility] [place] MCHC 33.1 32.2 - 35.5 g/dL 06/24/2012 12:31 PM CDT [facility] [place] RDW 13.4 11.0 - 14.5 % 06/24/2012 12:31 PM CDT [facility] [place] RDW-STDEV 44.0 37.0 - 54.0 fL 06/24/2012 12:31 PM CDT [facility] [place] PLATELETS 293 163 - 337 K/uL 06/24/2012 12:31 PM CDT [facility] [place] MPV 10.0 10.0 - 14.8 fL 06/24/2012 12:31 PM CDT [facility] [place] NEUTROPHILS 62 34 - 71 % 06/24/2012 12:31 PM CDT [facility] [place] LYMPHOCYTES 28 19 - 52 % 06/24/2012 12:31 PM CDT [facility] [place] MONOCYTES 8 5 - 13 % 06/24/2012 12:31 PM CDT [facility] [place] EOSINOPHILS 1 1 - 6 % 06/24/2012 12:31 PM CDT [facility] [place] BASOPHILS 1 0 - 1 % 06/24/2012 12:31 PM CDT [facility] [place] NEUTROPHIL ABSOLUTE 4.79 1.56 - 6.13 K/uL 06/24/2012 12:31 PM CDT [facility] [place] LYMPHOCYTE ABSOLUTE 2.13 1.20 - 3.40 K/uL 06/24/2012 12:31 PM CDT [facility] [place] MONOCYTE ABSOLUTE 0.65(H) 0.24 - 0.36 K/uL 06/24/2012 12:31 PM CDT [facility] [place] EOSINOPHIL ABSOLUTE 0.11 0.04 - 0.36 K/uL 06/24/2012 12:31 PM CDT [facility] [place] BASOPHILS ABSOLUTE 0.07 0.01 - 0.08 K/uL 06/24/2012 12:31 PM CDT [facility] [place] Blood specimen (specimen) 06/24/2012 9:30 AM CDT 06/24/2012 9:34 AM CDT Consuelo Rand DO HEMATOLOGY ORDERABLES Final Result [facility] [place] CLIA # [id number] [address] [facility] [address] [place] [address] * (ABNORMAL) COMPREHENSIVE METABOLIC PANEL (06/24/2012 9:30 AM CDT) SODIUM 142 136 - 145 mmol/L 07/01/2012 10:48 AM CDT [facility] [place] POTASSIUM 3.6 3.5 - 5.1 mmol/L 07/01/2012 10:48 AM CDT [facility] [place] CHLORIDE 103 98 - 107 mmol/L 07/01/2012 10:48 AM CDT [facility] [place] CO2 27 21 - 32 mmol/L 07/01/2012 10:48 AM CDT [facility] [place] CALCIUM 9.2 8.5 - 10.1 mg/dL 07/01/2012 10:48 AM CDT [facility] [place] BUN 16 7 - 18 mg/dL 07/01/2012 10:48 AM CDT [facility] [place] CREATININE 1.00 0.60 - 1.30 mg/dL 07/01/2012 10:48 AM CDT [facility] [place] GLUCOSE 83 74 - 106 mg/dL 07/01/2012 10:48 AM CDT [facility] [place] TOTAL PROTEIN 8.1 6.4 - 8.2 g/dL 07/01/2012 10:48 AM CDT [facility] [place] ALBUMIN 4.1 3.4 - 5.0 g/dL 07/01/2012 10:48 AM CDT [facility] [place] BILIRUBIN TOTAL 0.5 0.2 - 1.0 mg/dL 07/01/2012 10:48 AM CDT [facility] ALKALINE PHOSPHATASE 106 50 - 136 U/L 07/01/2012 10:48 AM CDT [facility] AST 16 15 - 37 U/L 07/01/2012 10:48 AM CDT [facility] ALT 45 30 - 65 U/L 07/01/2012 10:48 AM CDT [facility] GFR 58(L) >=60 mL/min/1.7 3 sq meter 07/01/2012 10:48 AM CDT [facility] GFR, 70 >=60 mL/min/1.7 3 sq meter 07/01/2012 10:48 AM CDT [facility] Blood specimen (specimen) 06/24/2012 9:30 AM CDT 06/24/2012 9:34 AM CDT Narrative [facility] - 07/01/2012 10:48 AM CDT eGFR has [...] DO CHEMISTRY ORDERABLES Edited Result - [id number] [address] [place] [address] * TSH (06/24/2012 9:30 AM CDT) TSH 1.30 0.30 - 4.80 uIU/mL 07/01/2012 10:48 AM CDT [facility] Blood specimen (specimen) 06/24/2012 9:30 AM CDT 06/24/2012 9:34 AM CDT Consuelo Rand DO CHEMISTRY ORDERABLES Edited Result - Final Performing Organization Address [facility] de Phone Number [facility] CLIA # [id number] [address] [place] [phone] * HEMOGLOBIN A1C (06/24/2012 9:30 AM CDT) HEMOGLOBIN A1C 5.8 4.5 - 6.2 % 06/24/2012 3:05 PM CDT [facility] EST. AVG GLUCOSE, A1C 120 mg/dL 06/24/2012 3:05 PM CDT [facility] Blood specimen (specimen) 06/24/2012 9:30 AM CDT 06/24/2012 9:34 AM CDT Consuelo Rand DO CHEMISTRY ORDERABLES Final Result Performing Organization Address [facility] de Phone Number [facility] CLIA # [id number] [address] [place] [address] * FERRITIN (06/24/2012 9:30 AM CDT) Pathologist [facility] FERRITIN 52.0 8.0 - 252.0 ng/mL 06/24/2012 2:00 PM CDT [facility] Blood specimen (specimen) 06/24/2012 9:30 AM CDT 06/24/2012 9:34 AM CDT Consuelo Rand DO CHEMISTRY ORDERABLES Final Result Performing Organization Address [facility] Co de Phone Number [facility] CLIA # [id number] [address] [place] [address] * IRON LEVEL (06/24/2012 9:30 AM CDT) IRON 88 50 - 170 ug/dL 06/24/2012 2:00 PM CDT [facility] Blood specimen (specimen) 06/24/2012 9:30 AM CDT 06/24/2012 9:34 AM CDT us Consuelo Rand DO CHEMISTRY ORDERABLES Final Result [facility] [place] CLIA # [id number] [address] [facility] [address] [place] [address] documented in this encounter Visit Diagnoses Not on filedocumented in this encounter Additional Health Concerns Infection Onset Date Last Indicated Resolved Time MRSA Comment:Abscess 11/14/15 11/17/2015 11/17/2015 documented as of this encounter Care Teams Car Wash Attendant Automatic Relationship Specialty Start Date End Date Consuelo Rand DO [address] [place] [phone] PCP - General Family Practice 06/04/10 documented as of this encounter
--- OUTSIDE RECORDS SUMMARY | 2024-10-07 18:01 | XMS_ITS | Encounter Summary ---
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 [place] [phone] documented as of this encounter Visit Diagnoses Not on filedocumented in this encounter Care Teams Pediatrician Managing Partner Relationship Specialty Start Date End Date Consuelo Rand DO [address] [facility] [place] [phone] PCP - General 07/19/20 documented as of this encounter
--- OUTSIDE RECORDS SUMMARY | 2024-10-07 18:01 | XMS_ITS | Encounter Summary ---
Author Organization [facility] Address 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 Gender Identity Not on file Sexual Orientation Not on file documented as of this encounter Plan of Treatment Upcoming Encounters Date Type Department Care Team (Late st Contact Info) Description 09/21/2025 8:40 AM CDT Office Visit [facility] [place] [address] [facility] [place] [phone] Consuelo Rand DO [address] [place] [facility] [place] [phone] documented as of this encounter Visit Diagnoses Not on filedocumented in this encounter Care Teams Media Center Director School Relationship Specialty Start Date End Date Consuelo Rand DO [address] [place] [facility] [place] [phone] PCP - General 07/19/20 documented as of this encounter
--- OUTSIDE RECORDS SUMMARY | 2024-10-07 18:01 | XMS_ITS | Encounter Summary ---
Author Organization [facility] Address [address] [place] [address] Care Team Providers Care Amphibian Crewmember Name Role Phone Consuelo Rand Carl POTTER Primary Care Provider Encounter Details Date Type Department Care Team (Late st Contact Info) Description 09/09/2016 Lab Requisition [facility] General Laboratory Services [place] [address] [place] [address] Apolinar Butler DO NO ADDRESS ON FILE Social History Tobacco Use Types Packs/Day Years Used Date Smoking Tobacco: Never Alcohol Use Standard Drinks/Week Comments No 0 (1 standard drink = 0.6 oz pur e alcohol) Comments No Sex and Gender Information Value Date Recorded Sex Assigned at Not on file 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 Gender Identity Not on file Sexual Orientation [...] - 145 mmol/L 09/10/2016 12:48 AM CDT [facility] POTASSIUM 3.7 3.5 - 5.1 mmol/L 09/10/2016 [facility]48 [facility] 101 98 - 107 mmol/L 09/10/2016 12:48 AM [facility] CO2 26 22 - 29 mmol/L 09/10/2016 12:48 AM [facility] CALCIUM 9.8 8.6 - 10.0 mg/dL 09/10/2016 12:48 AM [facility] BUN 16 6 - 20 mg/dL 09/10/2016 12:48 AM [facility] CREATININE 0.80 0.51 - 0.95 mg/dL 09/10/2016 12:48 AM [facility] GLUCOSE 95 74 - 106 mg/dL 09/10/2016 12:48 AM [facility] TOTAL PROTEIN 7.8 6.6 - 8.7 g/dL 09/10/2016 12:48 AM [facility] ALBUMIN 4.5 3.5 - 5.2 g/dL 09/10/2016 12:48 AM [facility] BILIRUBIN TOTAL 0.2 0.0 - 1.2 mg/dL 09/10/2016 12:48 AM [facility] ALKALINE PHOSPHATASE 87 35 - 104 U/L 09/10/2016 12:48 AM [facility] AST 19 10 - 35 U/L 09/10/2016 12:48 AM [facility] ALT 26 10 - 35 U/L 09/10/2016 12:48 AM [facility] GFR >60 >=60 mL/min/1.7 3 sq meter 09/10/2016 12:48 AM [facility] Comment: eGFR has not been validated [...] mL/min/1.7 3 sq meter 09/10/2016 12:48 AM [facility] ANION GAP 15 12 - 20 mmol/L 09/10/2016 12:48 AM [facility] Blood Venipuncture / Unknown 09/09/2016 9:29 PM CDT 09/09/2016 11:32 PM CDT us Apolinar Butler DO CHEMISTRY ORDERABLES Final Resu lt [facility] CLIA # [id number] [address] [place] [address] * (ABNORMAL) CBC WITH DIFFERENTIAL (09/09/2016 9:29 PM CDT) WBC 10.1(H) 4.0 - 10.0 K/uL 09/10/2016 12:41 AM [facility] RBC 4.85 3.93 - 5.22 M/uL 09/10/2016 12:41 AM [facility] HEMOGLOBIN 14.7 11.2 - 15.7 g/dL 09/10/2016 12:41 AM [facility] HEMATOCRIT 45.3(H) 34.1 - 44.9 % 09/10/2016 12:41 AM [facility] MCV 93.4 79.4 - 94.8 fL 09/10/2016 12:41 AM [facility] MCH 30.3 25.6 - 32.2 pg 09/10/2016 12:41 AM [facility] MCHC 32.5 32.2 - 35.5 g/dL 09/10/2016 12:41 AM [facility] RDW 14.6(H) 11.0 - 14.5 % 09/10/2016 12:41 AM [facility] RDW-STDEV 48.1 36.9 - 56.9 fL 09/10/2016 12:41 AM [facility] PLATELETS 272 163 - 337 K/uL 09/10/2016 12:41 AM [facility] MPV 10.0 10.0 - 14.8 fL 09/10/2016 12:41 AM [facility] NEUTROPHILS 59 34 - 71 % 09/10/2016 12:41 AM [facility] LYMPHOCYTES 28 19 - 52 % 09/10/2016 12:41 AM [facility] MONOCYTES 10 5 - 13 % 09/10/2016 12:41 AM [facility] EOSINOPHILS 2 1 - 6 % 09/10/2016 12:41 AM [facility] BASOPHILS 1 0 - 1 % 09/10/2016 12:41 AM [facility] IMMATURE GRANULOCYTES 0 % 09/10/2016 12:41 AM [facility] NEUTROPHIL ABSOLUTE 5.97 1.56 - 6.13 K/uL 09/10/2016 12:41 AM [facility] LYMPHOCYTE ABSOLUTE 2.79 1.20 - 3.40 K/uL 09/10/2016 12:41 AM [facility] MONOCYTE ABSOLUTE 1.04(H) 0.24 - 0.36 K/uL 09/10/2016 12:41 AM [facility] EOSINOPHIL ABSOLUTE 0.17 0.04 - 0.36 K/uL 09/10/2016 12:41 AM [facility] BASOPHILS ABSOLUTE 0.06 0.01 - 0.08 K/uL 09/10/2016 12:41 AM [facility] IMMATURE GRANULOCYTES ABSOLUTE 0.03 K/uL 09/10/2016 12:41 AM [facility] Blood Venipuncture / Unknown 09/09/2016 9:29 PM CDT 09/09/2016 11:32 PM CDT us Apolinar Butler DO HEMATOLOGY ORDERABLES Final Res ult [facility] CLIA # [id number] [address] [place] [address] documented in this encounter Visit Diagnoses Not on filedocumented in this encounter Additional Health Concerns Infection Onset Date Last Indicated Resolved Time MRSA Comment:Abscess 11/14/15 11/17/2015 11/17/2015 documented as of this encounter Care Teams Amphibian Crewmember Relationship Specialty Start Date End Date Consuelo Rand DO [address] [place] [address] PCP - General Family Practice 06/04/10 documented as of this encounter
--- OUTSIDE RECORDS SUMMARY | 2024-10-07 18:01 | XMS_ITS | Encounter Summary ---
Author Organization [facility] Address [address] [place] [address] Care Team Providers Care Pastrycook Name Role Phone Consuelo Rand Primary Care Provider [phone] Encounter Details Date Type Department Care Team (Late st Contact Info) Description 12/15/2017 Lab Requisition [facility] General Laboratory Services [place] [address] [place] [address] Conchis Sapp, TRANSIT MANAGER [address] [place] [phone] Social History Tobacco Use Types Packs/Day Years Used Date Smoking Tobacco: Never Alcohol Use Standard Drinks/Week Comments No 0 (1 standard drink = 0.6 oz pur e alcohol) Comments No Sex and Gender Information Value Date Recorded Sex Assigned at Not on file 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 ALBUMIN 4.4 3.5 - 5.2 g/dL 12/15/2017 10:43 PM CDT [facility] BILIRUBIN TOTAL 0.3 0.0 - 1.2 mg/dL 12/15/2017 10:43 PM CDT [facility] BILIRUBIN DIRECT <0.2 0.0 - 0.3 mg/dL 12/15/2017 10:43 PM T [facility] ALKALINE PHOSPHATASE 81 35 - 104 U/L 12/15/2017 10:43 PM T [facility] AST 53(H) 10 - 35 U/L 12/15/2017 10:43 PM CDT [facility] ALT 64(H) 10 - 35 U/L 12/15/2017 10:43 PM CDT [facility] Blood 12/15/2017 8:40 PM CDT 12/15/2017 9:58 PM CDT us Conchis Sapp TRANSIT MANAGER CHEMISTRY ORDERABLES Final Result [facility] CLIA # [id number] [address] [place] [address] documented in this encounter Visit Diagnoses Not on filedocumented in this encounter Additional Health Concerns Infection Onset Date Last Indicated Resolved Time MRSA Comment:Abscess 11/14/15 11/17/2015 11/17/2015 documented as of this encounter Care Teams Pastrycook Relationship Specialty Start Date End Date Consuelo Rand DO [address] [place] [address] PCP - General Family Practice 06/04/10 documented as of this encounter
--- OUTSIDE RECORDS SUMMARY | 2024-10-07 18:01 | XMS_ITS | Encounter Summary ---
Author Organization [facility] Address [address] [place] [address] Care Team Providers Care Relief Captain Name Role Phone Consuelo Rand Carl POTTER Primary Care Provider [phone] Encounter Details Date Type Department Care Team (Late st Contact Info) Description 12/01/2017 Lab Requisition [facility] Laboratory Services [place] [address] [place] [address] Apolinar Butler DO NO ADDRESS ON FILE Social History Tobacco Use Types Packs/Day Years Used Date Smoking Tobacco: Never Alcohol Use Standard Drinks/Week Comments No 0 (1 standard drink = 0.6 oz pur e alcohol) Comments No Sex and Gender Information Value Date Recorded Sex Assigned at Not on file 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 Gender Identity Not on file Sexual Orientation [...] CBC WITH DIFFERENTIAL (12/01/2017 10:10 PM CDT) [facility] WBC 7.9 4.0 - 10.0 K/uL 12/02/2017 5:21 AM [facility] RBC 5.05 3.93 - 5.22 M/uL 12/02/2017 5:21 AM [facility] HEMOGLOBIN 15.0 11.2 - 15.7 g/dL 12/02/2017 5:21 AM [facility] HEMATOCRIT 47.9(H) 34.1 - 44.9 % 12/02/2017 5:21 AM [facility] MCV 94.9(H) 79.4 - 94.8 fL 12/02/2017 5:21 AM [facility] MCH 29.7 25.6 - 32.2 pg 12/02/2017 5:21 AM [facility] MCHC 31.3(L) 32.2 - 35.5 g/dL 12/02/2017 5:21 AM [facility] RDW 14.9(H) 11.0 - 14.5 % 12/02/2017 5:21 AM [facility] RDW-STDEV 49.4 36.9 - 56.9 fL 12/02/2017 5:21 AM [facility] PLATELETS 281 163 - 337 K/uL 12/02/2017 5:21 AM [facility] MPV 10.3 10.0 - 14.8 fL 12/02/2017 5:21 AM [facility] NEUTROPHILS 51 34 - 71 % 12/02/2017 5:21 AM [facility] LYMPHOCYTES 35 19 - 52 % 12/02/2017 5:21 AM [facility] MONOCYTES 11 5 - 13 % 12/02/2017 5:21 AM [facility] EOSINOPHILS 3 1 - 6 % 12/02/2017 5:21 AM [facility] BASOPHILS 1 0 - 1 % 12/02/2017 5:21 AM [facility] IMMATURE GRANULOCYTES 0 % 12/02/2017 5:21 AM [facility] NEUTROPHIL ABSOLUTE 4.00 1.56 - 6.13 K/uL 12/02/2017 5:21 AM CDT [facility] LYMPHOCYTE ABSOLUTE 2.75 1.20 - 3.40 K/uL 12/02/2017 5:21 AM CDT [facility] MONOCYTE ABSOLUTE 0.84(H) 0.24 - 0.36 K/uL 12/02/2017 5:21 AM CDT [facility] EOSINOPHIL ABSOLUTE 0.21 0.04 - 0.36 K/uL 12/02/2017 5:21 AM CDT [facility] BASOPHILS ABSOLUTE 0.07 0.01 - 0.08 K/uL 12/02/2017 5:21 AM CDT [facility] IMMATURE GRANULOCYTES ABSOLUTE 0.01 K/uL 12/02/2017 5:21 AM CDT [facility] Blood 12/01/2017 10:1 0 PM CDT 12/02/2017 4:24 AM CDT us Apolinar Butler DO HEMATOLOGY ORDERABLES Final Res ult [facility] CLIA # [id number] [address] [place] [address] * (ABNORMAL) LIPID PANEL (12/01/2017 10:10 PM CDT) CHOLESTEROL 203(H) <200 mg/dL 12/02/2017 5:27 AM T [facility] TRIGLYCERIDE 130 <150 mg/dL 12/02/2017 5:27 AM CDT [facility] HDL 71(H) 40 - 59 mg/dL 12/02/2017 5:27 AM T [facility] LDL CALCULATED 106(H) <100 mg/dL 12/02/2017 5:27 AM T [facility] NON-HDL CHOLESTEROL 132(H) <130 mg/dL 12/02/2017 5:27 AM [facility] Blood 12/01/2017 10:1 0 PM CDT 12/02/2017 4:24 AM CDT Narrative [facility] - 12/02/2017 5:27 AM CDT TOTAL CHOLESTEROL [...] Butler DO CHEMISTRY ORDERABLES Final Resu lt [facility] CLIA # [id number] [address] [place] [id number] * (ABNORMAL) COMPREHENSIVE METABOLIC PANEL (12/01/2017 10:10 PM CDT) SODIUM 141 136 - 145 mmol/L 12/02/2017 5:26 AM [facility] POTASSIUM 3.8 3.5 - 5.1 mmol/L 12/02/2017 5:26 AM [facility] CHLORIDE 98 98 - 107 mmol/L 12/02/2017 5:26 AM [facility] CO2 25 22 - 29 mmol/L 12/02/2017 5:26 AM [facility] CALCIUM 9.9 8.6 - 10.0 mg/dL 12/02/2017 5:26 AM [facility] BUN 12 6 - 20 mg/dL 12/02/2017 5:26 AM [facility] CREATININE 0.76 0.51 - 0.95 mg/dL 12/02/2017 5:26 AM [facility] GLUCOSE 78 74 - 99 mg/dL 12/02/2017 5:26 AM [facility] TOTAL PROTEIN 7.9 6.6 - 8.7 g/dL 12/02/2017 5:26 AM [facility] ALBUMIN 4.5 3.5 - 5.2 g/dL 12/02/2017 5:26 AM [facility] BILIRUBIN TOTAL 0.7 0.0 - 1.2 mg/dL 12/02/2017 5:26 AM [facility] ALKALINE PHOSPHATASE 85 35 - 104 U/L 12/02/2017 5:26 AM [facility] AST 51(H) 10 - 35 U/L 12/02/2017 5:26 AM [facility] ALT 60(H) 10 - 35 U/L 12/02/2017 5:26 AM [facility] GFR >60 >=60 mL/min/1.7 3 sq meter 12/02/2017 5:26 AM [facility] Comment: eGFR has not been validated [...] mL/min/1.7 3 sq meter 12/02/2017 5:26 AM [facility] ANION GAP 18 12 - 20 mmol/L 12/02/2017 5:26 AM [facility] Blood 12/01/2017 10:1 0 PM CDT 12/02/2017 4:24 AM CDT us Apolinar Butler DO CHEMISTRY ORDERABLES Final Resu lt [facility] CLIA # [id number] [address] [place] [address] * TSH (12/01/2017 10:10 PM CDT) TSH 2.10 0.27 - 4.20 uIU/mL 12/02/2017 5:27 AM T [facility] Blood 12/01/2017 10:1 0 PM CDT 12/02/2017 4:24 AM CDT us Apolinar Butler DO CHEMISTRY ORDERABLES Final Resu lt Performing Organization Address City/State/[facility] Co de Phone Number [facility] # [id number] [address] [place] [address] documented in this encounter Visit Diagnoses Not on filedocumented in this encounter Additional Health Concerns Infection Onset Date Last Indicated Resolved Time MRSA Comment:Abscess 11/14/15 11/17/2015 11/17/2015 documented as of this encounter Care Teams Relief Captain Relationship Specialty Start Date End Date Consuelo Rand DO [address] [place] [address] PCP - General Family Practice 06/04/10 documented as of this encounter
--- OUTSIDE RECORDS SUMMARY | 2024-10-07 18:01 | XMS_ITS | Encounter Summary ---
Author Organization [facility] Address [address] [place] [address] Care Team Providers Care Menhaden Vessel Pilot Name Role Phone Consuelo Rand DO Primary Care Provider [phone] Reason for Referral * Radiology Services (Routine) - Closed Specialty Diagnoses / Procedures Referred By Conthay t Referred To Contact Radiology Diagnoses Abnormal breast finding Procedures MAMMO BREAST US BILAT LTD Consuelo Rand DO [address] [place] [address] Phone: tel: fax: [facility] [address] [address] Phone: tel: fax: Referral ID Status Reason Start Date Expiration Date Visits Requested Visits Authorized [id number] Closed Performing Department To Schedule (SGF) 06/02/2019 07/02/2020 1 1 [place] REGULATORY LEAD * Radiology Services (Routine) - Closed Specialty Diagnoses / Procedures Referred By Conthay cox Referred To Contact Radiology Diagnoses Abnormal breast finding Procedures MAMMO DIAG BILAT 3D DARIO W OR WO CAD CHG DIAGNOSTIC MAMMOGRAPHY COMPUTER-AIDED DETCJ BI CHG DIGITAL BREAST TOMOSYNTHESIS BILATERAL Consuelo Rand DO [address] [place] [address] Phone: tel: fax: [facility] [address] [facility] [address] [place] [address] Phone: tel: fax: Referral ID Status Reason Start Date Expiration Date Visits Requested Visits Authorized [id number] Closed Performing Department To Schedule (SGF) 06/02/2019 07/02/2020 1 1 [place] REGULATORY LEAD Encounter Details Date Type Department Care Team (Late st Contact Info) Description 06/02/2019 Ancillary Orders [facility] [address] [facility] [address] [place] [address] Consuelo Rand DO [address] [place] [phone] Abnormal breast finding Social History Tobacco Use Types Packs/Day Years Used Date Smoking Tobacco: Never Alcohol Use Standard Drinks/Week Comments No 0 (1 standard drink = 0.6 oz pur e alcohol) Comments No Sex and Gender Information Value Date Recorded Sex Assigned at Not on file 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 [id number] Impressions 06/14/2019 3:52 PM CDT : 1. [...] Moderate suspicion for malignancy RECOMMENDATION: Tissue diagnosis [id number] Narrative 06/14/2019 3:52 PM CDT EXAM: MAMMO DIAG BILAT 3D DARIO W OR WO CAD, MAMMO BREAST US BILAT LTD INDICATION: 59-year-old female presents for diagnostic workup of bilateral masses and asymmetries. These were identified on recent baseline 2-D mammogram from [place]. COMPARISON: Baseline mammogram 05/25/2019 MAMMOGRAM TECHNIQUE: 3-D [...] W OR WO CAD (06/11/2019 1:24 PM GLOBAL REGULATORY LEAD) Anatomical Region Laterality Modality Breast Bilateral Mammography 06/11/2019 1:24 PM GLOBAL REGULATORY LEAD Addenda Addendum by Josefina Segura, on 06/18/2019 [...] diagnostic 3-D mammogram and left breast ultrasound. [id number] Impressions 06/14/2019 3:52 PM CDT : 1. [...] Moderate suspicion for malignancy RECOMMENDATION: Tissue diagnosis [id number] Narrative 06/14/2019 3:52 PM CDT EXAM: MAMMO DIAG BILAT 3D DARIO W OR WO CAD, MAMMO BREAST US BILAT LTD INDICATION: 59-year-old female presents for diagnostic workup of bilateral masses and asymmetries. These were identified on recent baseline 2-D mammogram from [place]. COMPARISON: Baseline mammogram 05/25/2019 MAMMOGRAM TECHNIQUE: 3-D [...] documented as of this encounter Care Teams Menhaden Vessel Pilot Relationship Specialty Start Date End Date Consuelo Rand DO [address] [place] [address] PCP - General Family Practice 06/04/10 documented as of this encounter
--- OUTSIDE RECORDS SUMMARY | 2024-10-07 18:01 | XMS_ITS | Encounter Summary ---
Author Organization [facility] Address [address] [place] [address] Care Team Providers Care Mold Finisher Name Role Phone Consuelo Rand DO Primary Care Provider [phone] Encounter Details Date Type Department Care Team (Late st Contact Info) Description 06/22/2014 Lab Requisition [facility] Laboratory Services [place] [address] [place] [address] Consuelo aRnd DO [address] [place] [phone] Social History Tobacco Use Types Packs/Day Years Used Date Smoking Tobacco: Never Alcohol Use Standard Drinks/Week Comments No 0 (1 standard drink = 0.6 oz pur e alcohol) Comments No Sex and Gender Information Value Date Recorded Sex Assigned at Not on file 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 Gender Identity Not on file Sexual Orientation [...] CBC WITH DIFFERENTIAL (06/22/2014 8:20 AM CDT) [facility] WBC 6.8 4.0 - 10.0 K/uL 06/22/2014 1:54 PM CDT [facility] [place] RBC 4.77 3.93 - 5.22 M/uL 06/22/2014 1:54 PM CDT [facility] [place] HEMOGLOBIN 14.2 11.2 - 15.7 g/dL 06/22/2014 1:54 PM CDT [facility] [place] HEMATOCRIT 44.2 34.1 - 44.9 % 06/22/2014 1:54 PM CDT [facility] [place] MCV 92.7 79.4 - 94.8 fL 06/22/2014 1:54 PM CDT [facility] [place] MCH 29.8 25.6 - 32.2 pg 06/22/2014 1:54 PM CDT [facility] [place] MCHC 32.1(L) 32.2 - 35.5 g/dL 06/22/2014 1:54 PM CDT [facility] [place] RDW 14.0 11.0 - 14.5 % 06/22/2014 1:54 PM CDT [facility] [place] RDW-STDEV 45.8 36.9 - 56.9 fL 06/22/2014 1:54 PM CDT [facility] [place] PLATELETS 283 163 - 337 K/uL 06/22/2014 1:54 PM CDT [facility] [place] MPV 10.3 10.0 - 14.8 fL 06/22/2014 1:54 PM CDT [facility] [place] NEUTROPHILS 61 34 - 71 % 06/22/2014 1:54 PM CDT [facility] [place] LYMPHOCYTES 28 19 - 52 % 06/22/2014 1:54 PM CDT [facility] [place] MONOCYTES 9 5 - 13 % 06/22/2014 1:54 PM CDT [facility] [place] EOSINOPHILS 1 1 - 6 % 06/22/2014 1:54 PM CDT [facility] [place] BASOPHILS 1 0 - 1 % 06/22/2014 1:54 PM CDT [facility] [place] NEUTROPHIL ABSOLUTE 4.11 1.56 - 6.13 K/uL 06/22/2014 1:54 PM CDT [facility] [place] LYMPHOCYTE ABSOLUTE 1.91 1.20 - 3.40 K/uL 06/22/2014 1:54 PM CDT [facility] [place] MONOCYTE ABSOLUTE 0.61(H) 0.24 - 0.36 K/uL 06/22/2014 1:54 PM CDT [facility] [place] EOSINOPHIL ABSOLUTE 0.09 0.04 - 0.36 K/uL 06/22/2014 1:54 PM CDT [facility] [place] BASOPHILS ABSOLUTE 0.05 0.01 - 0.08 K/uL 06/22/2014 1:54 PM CDT [facility] [place] IMMATURE GRANULOCYTES 0 % 06/22/2014 1:54 PM CDT [facility] [place] IMMATURE GRANULOCYTES ABSOLUTE 0.01 K/uL 06/22/2014 1:54 PM CDT [facility] [place] Blood Venipuncture - L ab Collect / Unknown 06/22/2014 8:20 AM CDT 06/22/2014 11:11 AM CDT us Consuelo Rand DO HEMATOLOGY ORDERABLES Final Result [facility] [place] CLIA # [id number] [address] [place] [address] * (ABNORMAL) COMPREHENSIVE METABOLIC PANEL (06/22/2014 8:20 AM CDT) SODIUM 140 136 - 145 mmol/L 06/22/2014 3:47 PM CDT [facility] [place] POTASSIUM 4.4 3.5 - 5.1 mmol/L 06/22/2014 3:47 PM CDT [facility] [place] CHLORIDE 103 98 - 107 mmol/L 06/22/2014 3:47 PM CDT [facility] [place] CO2 27 21 - 32 mmol/L 06/22/2014 3:47 PM CDT [facility] [place] CALCIUM 9.7 8.5 - 10.1 mg/dL 06/22/2014 3:47 PM CDT [facility] [place] BUN 12 7 - 18 mg/dL 06/22/2014 3:47 PM CDT [facility] CREATININE 0.80 0.60 - 1.30 mg/dL 06/22/2014 3:47 PM [facility] [place] GLUCOSE 82 74 - 106 mg/dL 06/22/2014 3:47 PM [facility] TOTAL PROTEIN 7.7 6.4 - 8.2 g/dL 06/22/2014 3:47 PM [facility] ALBUMIN 3.8 3.4 - 5.0 g/dL 06/22/2014 3:47 PM [facility] BILIRUBIN TOTAL 0.5 0.2 - 1.0 mg/dL 06/22/2014 3:47 PM [facility] ALKALINE PHOSPHATASE 94 46 - 116 U/L 06/22/2014 3:47 PM [facility] AST 27 15 - 37 U/L 06/22/2014 3:47 PM [facility] [place] ALT 30 30 - 65 U/L 06/22/2014 3:47 PM [facility] GFR >60 >=60 mL/min/1.7 3 sq meter 06/22/2014 3:47 PM [facility] Comment: eGFR has not been validated for [...] mL/min/1.7 3 sq meter 06/22/2014 3:47 PM [facility] ANION GAP 10(L) 12 - 20 mmol/L 06/22/2014 3:47 PM [facility] Blood Venipuncture - L ab Collect / Unknown 06/22/2014 8:20 AM CDT 06/22/2014 11:11 AM CDT Narrative [facility] [employer] [facility] - 06/22/2014 3:47 PM CDT Effective 12/09/2013, the Alkaline Phosphatase test method and reference range have changed. Please take this into consideration when interpreting results prior to or after this date. Consuelo Rand DO CHEMISTRY ORDERABLES Final Result [facility] [employer] [facility] CLIA # [id number] [address] [place] [address] * (ABNORMAL) LIPID PANEL (06/22/2014 8:20 AM CDT) [facility] CHOLESTEROL 197 130 - 200 mg/dL 06/22/2014 3:47 PM CDT [facility] [employer] [facility] TRIGLYCERIDE 127 30 - 200 mg/dL 06/22/2014 3:47 PM CDT [facility] [employer] [facility] HDL 68 35 - 80 mg/dL 06/22/2014 3:47 PM CDT [facility] [employer] [facility] LDL CALCULATED 104(H) 0 - 100 mg/dL 06/22/2014 3:47 PM CDT [facility] [employer] [facility] NON-HDL CHOLESTEROL 129 mg/dL 06/22/2014 3:47 PM T [facility] [employer] [facility] Blood Venipuncture - L ab Collect / Unknown 06/22/2014 8:20 AM CDT 06/22/2014 11:11 AM CDT [facility] [employer] [facility] - 06/22/2014 3:47 PM CDT TOTAL CHOLESTEROL [...] ORDERABLES Final Result [facility] [place] CLIA # [id number] [address] [address] documented in this encounter Visit Diagnoses Not on filedocumented in this encounter Additional Health Concerns Infection Onset Date Last Indicated Resolved Time MRSA Comment:Abscess 11/14/15 11/17/2015 11/17/2015 documented as of this encounter Care Teams Mold Finisher Relationship Specialty Start Date End Date Consuelo Rand DO [address] [place] [address] PCP - General Family Practice 06/04/10 documented as of this encounter
--- OUTSIDE RECORDS SUMMARY | 2024-10-07 18:01 | XMS_ITS | Encounter Summary ---
Author Organization [facility] Address [address] [place] [address] Care Team Providers Care Formula Checker Name Role Phone Consuelo Rand DO Primary Care Provider Encounter Details Date Type Department Care Team (Late st Contact Info) Description 12/20/2015 Lab Requisition [facility] Laboratory Services [place] [address] [place] [address] Consuelo Rand DO [address] [place] [phone] Social History Tobacco Use Types Packs/Day Years Used Date Smoking Tobacco: Never Alcohol Use Standard Drinks/Week Comments No 0 (1 standard drink = 0.6 oz pur e alcohol) Comments No Sex and Gender Information Value Date Recorded Sex Assigned at Not on file 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 Gender Identity Not on file Sexual [...] 4.0 - 10.0 K/uL 12/20/2015 4:16 PM [facility] RBC 4.63 3.93 - 5.22 M/uL 12/20/2015 4:16 PM [facility] HEMOGLOBIN 13.8 11.2 - 15.7 g/dL 12/20/2015 4:16 PM [facility] HEMATOCRIT 43.1 34.1 - 44.9 % 12/20/2015 4:16 PM [facility] MCV 93.1 79.4 - 94.8 fL 12/20/2015 4:16 PM [facility] MCH 29.8 25.6 - 32.2 pg 12/20/2015 4:16 PM [facility] MCHC 32.0(L) 32.2 - 35.5 g/dL 12/20/2015 4:16 PM [facility] RDW 14.7(H) 11.0 - 14.5 % 12/20/2015 4:16 PM [facility] RDW-STDEV 48.0 36.9 - 56.9 fL 12/20/2015 4:16 PM [facility] PLATELETS 241 163 - 337 K/uL 12/20/2015 4:16 PM [facility] MPV 10.4 10.0 - 14.8 fL 12/20/2015 4:16 PM [facility] NEUTROPHILS 52 34 - 71 % 12/20/2015 4:16 PM [facility] LYMPHOCYTES 34 19 - 52 % 12/20/2015 4:16 PM [facility] MONOCYTES 9 5 - 13 % 12/20/2015 4:16 PM [facility] EOSINOPHILS 3 1 - 6 % 12/20/2015 4:16 PM T [facility] BASOPHILS 1 0 - 1 % 12/20/2015 4:16 PM T [facility] NEUTROPHIL ABSOLUTE 2.97 1.56 - 6.13 K/uL 12/20/2015 4:16 PM [facility] LYMPHOCYTE ABSOLUTE 1.95 1.20 - 3.40 K/uL 12/20/2015 4:16 PM [facility] MONOCYTE ABSOLUTE 0.54(H) 0.24 - 0.36 K/uL 12/20/2015 4:16 PM [facility] EOSINOPHIL ABSOLUTE 0.18 0.04 - 0.36 K/uL 12/20/2015 4:16 PM [facility] BASOPHILS ABSOLUTE 0.07 0.01 - 0.08 K/uL 12/20/2015 4:16 PM [facility] IMMATURE GRANULOCYTES 0 % 12/20/2015 4:16 PM [facility] IMMATURE GRANULOCYTES ABSOLUTE 0.01 K/uL 12/20/2015 4:16 PM [facility] Blood Venipuncture - L ab Collect / Unknown 12/20/2015 8:00 AM CDT 12/20/2015 11:36 AM CDT us Consuelo Rand DO HEMATOLOGY ORDERABLES Final [id number] [address] [place] [address] * (ABNORMAL) COMPREHENSIVE METABOLIC PANEL (12/20/2015 8:00 AM CDT) SODIUM 142 136 - 145 mmol/L 12/20/2015 4:37 PM T [facility] POTASSIUM 3.6 3.5 - 5.1 mmol/L 12/20/2015 4:37 PM [facility] CHLORIDE 100 98 - 107 mmol/L 12/20/2015 4:37 PM T [facility] CO2 24 22 - 29 mmol/L 12/20/2015 4:37 PM [facility] CALCIUM 9.9 8.6 - 10.0 mg/dL 12/20/2015 4:37 PM [facility] BUN 16 6 - 20 mg/dL 12/20/2015 4:37 PM [facility] CREATININE 0.74 0.51 - 0.95 mg/dL 12/20/2015 4:37 PM [facility] GLUCOSE 69(L) 74 - 106 mg/dL 12/20/2015 4:37 PM [facility] TOTAL PROTEIN 7.5 6.6 - 8.7 g/dL 12/20/2015 4:37 PM [facility] ALBUMIN 4.5 3.5 - 5.2 g/dL 12/20/2015 4:37 PM [facility] BILIRUBIN TOTAL 0.6 0.0 - 1.2 mg/dL 12/20/2015 4:37 PM [facility] ALKALINE PHOSPHATASE 86 35 - 104 U/L 12/20/2015 4:37 PM [facility] AST 27 10 - 35 U/L 12/20/2015 4:37 PM [facility] ALT 29 10 - 35 U/L 12/20/2015 4:37 PM [facility] GFR >60 >=60 mL/min/1.7 3 sq meter 12/20/2015 4:37 PM [facility] Comment: eGFR has not been validated [...] mL/min/1.7 3 sq meter 12/20/2015 4:37 PM [facility] ANION GAP 18 12 - 20 mmol/L 12/20/2015 4:37 PM [facility] Blood Venipuncture - L ab Collect / Unknown 12/20/2015 8:00 AM CDT 12/20/2015 11:36 AM CDT us Consuelorukhsana Mckayehan DO CHEMISTRY ORDERABLES Final Result Performing Organization Address [facility]/ZIP Co de Phone Number [facility] CLIA # [id number] [address] [place] [address] * TSH (12/20/2015 8:00 AM CDT) TSH 1.94 0.27 - 4.20 uIU/mL 12/20/2015 4:37 PM CDT [facility] Blood Venipuncture - L ab Collect / Unknown 12/20/2015 8:00 AM CDT 12/20/2015 11:36 AM CDT us Consuelorukhsana Mckayehan DO CHEMISTRY ORDERABLES Final Result Performing Organization Address [facility] Co de Phone Number [facility] CLIA # [id number] [address] [place] [address] * IRON LEVEL (12/20/2015 8:00 AM CDT) IRON 108 37 - 145 ug/dL 12/20/2015 6:48 PM CDT [facility] Blood Venipuncture - L ab Collect / Unknown 12/20/2015 8:00 AM CDT 12/20/2015 11:36 AM CDT us Consuelorukhsana Mckayehan DO CHEMISTRY ORDERABLES Final Result Performing Organization Address [facility]/ZIP Co de Phone Number [facility] CLIA # [id number] [address] [place] [address] * HEMOGLOBIN A1C (12/20/2015 8:00 AM CDT) HEMOGLOBIN A1C 5.3 4.8 - 5.9 % 12/20/2015 7:41 PM CDT [facility] EST. AVG GLUCOSE, A1C 105 mg/dL 12/20/2015 7:41 PM CDT [facility] Blood Venipuncture - L ab Collect / Unknown 12/20/2015 8:00 AM CDT 12/20/2015 11:36 AM CDT us Consuelo Rand DO CHEMISTRY ORDERABLES Final Result [facility] CLIA # [id number] [address] [place] [address] * (ABNORMAL) LIPID PANEL (12/20/2015 8:00 AM CDT) CHOLESTEROL 221(H) <200 mg/dL 12/20/2015 4:37 PM CDT [facility] TRIGLYCERIDE 134 <150 mg/dL 12/20/2015 4:37 PM CDT [facility] HDL 72(H) 40 - 59 mg/dL 12/20/2015 4:37 PM T [facility] LDL CALCULATED 122(H) <100 mg/dL 12/20/2015 4:37 PM T [facility] NON-HDL CHOLESTEROL 149(H) <130 mg/dL 12/20/2015 4:37 PM CDT [facility] Blood Venipuncture - L ab Collect / Unknown 12/20/2015 8:00 AM CDT 12/20/2015 11:36 AM CDT Narrative [facility] - 12/20/2015 4:37 PM CDT TOTAL CHOLESTEROL [...] Consuelo Rand DO CHEMISTRY ORDERABLES Final Result [facility] # [id number] [address] [place] [address] documented in this encounter Visit Diagnoses Not on filedocumented in this encounter Additional Health Concerns Infection Onset Date Last Indicated Resolved Time MRSA Comment:Abscess 11/14/15 11/17/2015 11/17/2015 documented as of this encounter Care Teams Formula Checker Relationship Specialty Start Date End Date Consuelo Rand DO [address] [place] [id number] PCP - General Family Practice 06/04/10 documented as of this encounter
--- OUTSIDE RECORDS SUMMARY | 2024-10-07 18:01 | XMS_ITS | Encounter Summary ---
Author Organization [facility] Address [address] [place] [address] Care Team Providers Care Manual Arts Teacher Name Role Phone Consuelo Rand DO Primary Care Provider [phone] Reason for Referral * Radiology Services (Routine) - Closed Specialty Diagnoses / Procedures Referred By Jordon cox Referred To Contact Diagnoses Abnormal mammogram Procedures MAMMO BREAST US BIOPSY LEFT Consuelo Rand, DO [address] [place] [address] Phone: tel: fax: Referral ID Status Reason Start Date Expiration Date Visits Re quested Visits Authorized [id number] Closed 07/02/2019 08/01/2020 1 1 * Radiology Services (Routine) - Closed Specialty Diagnoses / Procedures Referred By Jordon cox Referred To Contact Radiology Diagnoses Abnormal mammogram Procedures MAMMO BREAST US BIOPSY RIGHT MAMMO BREAST US BIOPSY BILAT Consuelo Rand DO [address] [place] [address] Phone: tel: fax: [facility] [address] [facility] [address] Phone: tel: fax: Referral ID Status Reason Start Date Expiration Date Visits Re quested Visits Authorized [id number] Closed 06/16/2019 07/16/2020 1 1 Encounter Details Date Type Department Care Team (Late st Contact Info) Description 07/02/2019 Ancillary Orders [facility] Breast [place] [address] [place] [phone] Consuelo Rand DO [address] [place] [address] Abnormal mammogram Social History Tobacco Use Types Packs/Day Years Used Date Smoking Tobacco: Never Alcohol Use Standard Drinks/Week Comments No 0 (1 standard drink = 0.6 oz pur e alcohol) Comments No Sex and Gender Information Value Date Recorded Sex Assigned at Not on file 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 [id number] Impressions 07/02/2019 10:07 AM CDT : Successful ultrasound-guided needle core biopsy of the bilateral breast masses as described above. Further recommendations will be based on pathology results. [id number] Narrative 07/02/2019 10:07 AM CDT BILATERAL BREAST [...] recommendations will be based on pathology results. [id number] Consuelo Rand DO MAMMO ORDERABLES Edited Res [...] left breast ultrasound follow-up in 6 months. [id number] Impressions 07/02/2019 10:07 AM CDT : Successful ultrasound-guided needle core biopsy of the bilateral breast masses as described above. Further recommendations will be based on pathology results. [id number] Narrative 07/02/2019 10:07 AM CDT BILATERAL BREAST [...] recommendations will be based on pathology results. [id number] Consuelo Rand DO MAMMO ORDERABLES Edited Res ult - Final documented in this encounter Visit Diagnoses Diagnosis Abnormal mammogram Abnormal mammogram, unspecified Abnormal mammogram Abnormal mammogram, unspecified Abnormal mammogram Abnormal mammogram, unspecified documented in this encounter Additional Health Concerns Infection Onset Date Last Indicated Resolved Time MRSA Comment:Abscess 11/14/15 11/17/2015 11/17/2015 documented as of this encounter Care Teams Manual Arts Teacher Relationship Specialty Start Date End Date Consuelo Rand DO [address] [place] [address] PCP - General Family Practice 06/04/10 documented as of this encounter
--- OUTSIDE RECORDS SUMMARY | 2024-10-07 18:01 | XMS_ITS | Clinical Summary ---
Author Organization [facility] Address [address] [place] [address] Care Team Providers Care Asic Design Engineer Name Role Phone KeyonaConsuelo reddy Carl POTTER [...] Team Description 10/07/2024 4:20 PM CDT - 10/07/2024 5:25 PM CDT Emergency [facility] Emergency Medicine [address] [place] [address] elevation myocardial infarction (STEMI), unspecified artery (CMS/HCC) (Primary Dx) Discharge Disposition: Acute Care Hospital 10/07/2024 Travel 09/22/2024 Results Follow-Up [facility] Medicine [place] [address] [place] [address] Consuelo Rand DO CBC WITH DIFFERENTIAL, PATHOLOGY, COLON CANCER SCREEN, STOOL DNA 09/21/2024 9:00 AM CDT Office Visit [facility] [address] [place] [address] Consuelo Rand DO Medicare annual wellness visit, subsequent (Primary Dx); Encounter for colorectal cancer screening; Screening mammogram, encounter for; Mixed hyperlipidemia; Essential hypertension; Vitamin D deficiency; Abnormal skin growth; Chronic midline low back pain with bilateral sciatica; Primary osteoarthritis of right hip; 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:04 PM BUSINESS ANALYST Gender Identity Not on file Sexual [...] Description 09/21/2025 8:40 AM CDT Office Visit [facility] [address] [place] [address] Consuelo Rand, [address] [facility] [place] [address] Health Maintenance Due Date Last Done [...] OR WO CAD Routine 05/28/2023 9:20 AM BUSINESS ANALYST Screening mammogram, encounter for HEMOGLOBIN A1C Routine [...] 383(HH) <=10 ng/L 10/07/2024 4:18 PM CDT [facility] Blood BLOOD SPECIMEN / Unknown Collection / Unknown 10/07/2024 3:45 PM CDT 10/07/2024 4:00 PM CDT Narrative [facility] - 10/07/2024 4:18 PM CDT Troponin elevated. Elmer Botello DO CHEMISTRY ORDERABLES Final Re sult [facility] CLIA # [id number] [address] [place] [address] * PT AND APTT (10/07/2024 3:45 PM CDT) [facility] PROTIME 13.0 12.1 - 14.3 Seconds 10/07/2024 4:34 PM CDT [facility] INR 1.0 0.9 - 1.1 10/07[facility]2024 [facility] P[facility] 25.7 25.1 - 35.4 seconds 10/07/2024 4:34 PM [facility] Blood BLOOD SPECIMEN / Unknown Collection / Unknown 10/07/2024 3:45 PM CDT 10/07/2024 4:25 PM CDT us Elmer Botello DO HEMATOLOGY ORDERABLES Final R esult [facility] CLIA # [id number] [address] [place] [address] * (ABNORMAL) CBC WITH DIFFERENTIAL (10/07/2024 3:45 PM CDT) Only the most recent of2 resultswithin the time period is included. [facility] WBC 8.9 4.0 - 10.0 K/uL 10/07/2024 4:03 PM [facility] RBC 4.66 3.93 - 5.22 M/uL 10/07/2024 4:03 PM [facility] HEMOGLOBIN 14.0 11.2 - 15.7 g/dL 10/07/2024 4:03 PM [facility] HEMATOCRIT 42.5 34.1 - 44.9 % 10/07/2024 4:03 PM [facility] MCV 91.2 79.4 - 94.8 fL 10/07/2024 4:03 PM [facility] MCH 30.0 25.6 - 32.2 pg 10/07/2024 4:03 PM [facility] MCHC 32.9 32.2 - 35.5 g/dL 10/07/2024 4:03 PM [facility] RDW 13.2 11.0 - 14.5 % 10/07/2024 4:03 PM [facility] RDW-STDEV 44.3 36.9 - 56.9 fL 10/07/2024 4:03 PM [facility] PLATELETS 262 163 - 337 K/uL 10/07/2024 4:03 PM [facility] MPV 9.6(L) 10.0 - 14.8 fL 10/07/2024 4:03 PM [facility] NEUTROPHILS 78(H) 34 - 71 % 10/07/2024 4:03 PM [facility] LYMPHOCYTES 15(L) 19 - 52 % 10/07/2024 4:03 PM [facility] MONOCYTES 6 5 - 13 % 10/07/2024 4:03 PM [facility] EOSINOPHILS 1 1 - 6 % 10/07/2024 4:03 PM [facility] BASOPHILS 1 0 - 1 % 10/07/2024 4:03 PM [facility] IMMATURE GRANULOCYTES 0 % 10/07/2024 4:03 PM [facility] NEUTROPHIL ABSOLUTE 6.93(H) 1.56 - 6.13 K/uL 10/07/2024 4:03 PM [facility] LYMPHOCYTE ABSOLUTE 1.33 1.20 - 3.40 K/uL 10/07/2024 4:03 PM [facility] MONOCYTE ABSOLUTE 0.49(H) 0.24 - 0.36 K/uL 10/07/2024 4:03 PM [facility] EOSINOPHIL ABSOLUTE 0.05 0.04 - 0.36 K/uL 10/07/2024 4:03 PM [facility] BASOPHILS ABSOLUTE 0.09(H) 0.01 - 0.08 K/uL 10/07/2024 4:03 PM [facility] IMMATURE GRANULOCYTES ABSOLUTE 0.03 K/uL 10/07/2024 4:03 PM [facility] Blood BLOOD SPECIMEN / Unknown Collection / Unknown 10/07/2024 3:45 PM CDT 10/07/2024 4:00 PM CDT Elmer Botello DO HEMATOLOGY ORDERABLES Final R esult [facility] CLIA # [id number] [address] [place] [address] * (ABNORMAL) BRAIN NATRIURETIC PEPTIDE, BNP OR PROBNP (10/07/2024 3:45 PM CDT) PROBNP, N TERMINAL 578(H) 0 - 125 pg/mL 10/07/2024 4:39 PM CDT [facility] Comment: INTERPRETIVE COMMENT based on diagnosis: [...] Botello DO CHEMISTRY ORDERABLES Final Re sult Performing Organization Address City/[facility]/ZIP Co de Phone Number [facility] CLIA # [id number] [address] [place] [address] * (ABNORMAL) COMPREHENSIVE METABOLIC PANEL (10/07/2024 3:45 PM CDT) Only the most recent of2 resultswithin the time period is included. SODIUM 139 136 - 145 mmol/L 10/07/2024 4:17 PM CDT [facility] POTASSIUM 3.9 3.5 - 5.1 mmol/L 10/07/2024 4:17 PM [facility] CHLORIDE 102 98 - 107 mmol/L 10/07/2024 4:17 PM [facility] CO2 24 22 - 29 mmol/L 10/07/2024 4:17 PM [facility] CALCIUM 9.6 8.8 - 10.2 mg/dL 10/07/2024 4:17 PM [facility] BUN 15 8 - 23 mg/dL 10/07/2024 4:17 PM [facility] CREATININE 0.80 0.51 - 0.95 mg/dL 10/07/2024 4:17 PM [facility] GLUCOSE 129(H) 74 - 99 mg/dL 10/07/2024 4:17 PM [facility] TOTAL PROTEIN 7.4 6.6 - 8.7 g/dL 10/07/2024 4:17 PM [facility] ALBUMIN 4.3 3.5 - 5.2 g/dL 10/07/2024 4:17 PM [facility] BILIRUBIN TOTAL 0.4 0.0 - 1.2 mg/dL 10/07/2024 4:17 PM [facility] ALKALINE PHOSPHATASE 93 35 - 104 U/L 10/07/2024 4:17 PM [facility] AST 26 0 - 35 U/L 10/07/2024 4:17 PM [facility] ALT 15 0 - 35 U/L 10/07/2024 4:17 PM [facility] GFR >60 >=60 mL/min/1.7 3 sq meter 10/07/2024 4:17 PM [facility] Comment:eGFR calculated with 2020 CKD-EPI equation. Vegetarian diet, extremely high or low muscle mass, and may affect results. Cystatin C with Glomerular Filtration Rate is a suitable alternative for these patients. ANION GAP 13 5 - 20 mmol/L 10/07/2024 4:17 PM [facility] Blood BLOOD SPECIMEN / Unknown Collection / Unknown 10/07/2024 3:45 PM CDT 10/07/2024 4:00 PM CDT Elmer Ayan POTTER CHEMISTRY ORDERABLES Final Re sult [facility] # [id number] [address] [place] [address] * COLON CANCER SCREEN, STOOL DNA (09/28/2024 2:00 PM CDT) COLOGUARD RESULT Negative Negative [facility] Comment: The Cologuard (TM) test was performed [...] (Flash Parmar al, N Engl J Med 2014;370(14):6279-5018) The normal value (reference range) for this assay is negative. COLOGUARD RE-SCREENING RECOMMENDATION: Periodic colorectal cancer screening is an important part of preventive healthcare for asymptomatic individuals at average risk for colorectal cancer. Following a negative Cologuard result, the [place] Cancer Society and U.S. Multi-Society Task Force screening guidelines recommend a Cologuard re-screening interval of 3 years. References: [place] [employer] Guideline for Colorectal Cancer Screening: https://www.cancer.org/cancer/gsjpk-mnfllq-zxtgxu/qipbgzekc-sptwwydtf-yfefkhl/ac s-rec ommendations.html.; Josias LARSEN, Emiliano BARONE, Owen WEAVER, Colorectal Cancer Screening: Recommendations for Physicians and Patients from the U.S. Multi-Society Task Force on Colorectal Cancer Screening , Am J Gastroenterology 2017; 112:8418-7351. TEST DESCRIPTION: Composite algorithmic analysis of stool [...] Azevedo et al, N Engl J Med 2014;370(14):7370-5913.) Cologuard may produce a false negative or false positive result (no colorectal cancer or precancerous polyp present at colonoscopy follow up). A negative Cologuard test result does not guarantee the absence of CRC or advanced adenoma (pre-cancer). The current Cologuard screening interval is every 3 years. ([place] Cancer Society and U.S. Multi-Society Task Force). Cologuard performance data in a 10,000 patient pivotal study using colonoscopy as the reference method can be accessed at the following location: www.[employer]/results. Additional description of the Cologuard test process, warnings and precautions can be found at www.[employer].com. Stool STOOL SPECIMEN / Unknown 09/28/2024 2:00 PM CDT 09/29/2024 1:44 PM CDT Consuelo Rand DO BODY FLUIDS AND STOOLS Malathi aquino Result [facility] # [id number] [address], [address] [place] [address] * VITAMIN D 25 HYDROXY (09/21/2024 9:45 AM CDT) VITAMIN D, 25 OH, TOTAL 64 30 - 100 ng/mL [facility] Comment: Vitamin D Status 25-OH Vitamin D: Deficiency: <20 ng/mL Insufficiency: 20 - 29 ng/mL Optimal: > or = 30 ng/mL For 25-OH Vitamin D testing on patients on D2-supplementation and patients for whom quantitation of D2 and D3 fractions is required, the QuestAssureD(TM) 25-OH VIT D, (D2,D3), LC/MS/MS is recommended: order code 23869 (patients >2yrs). See Note 1 Note 1 For additional information, please refer to http://education.EarlyTracks/faq/BNZ077 (This link is being provided for informational/ educational purposes only.) FASTING:UNKNOWN FASTING: UNKNOWN Test Performed at: [facility] [address] [place] [phone] Edward Caldwell MD Blood 09/21/2024 9:45 AM CDT 09/21/2024 9:45 AM CDT Consuelo Rand DO CHEMISTRY ORDERABLES Final Result [facility] [phone] [facility] [address] * TSH (09/21/2024 9:45 AM CDT) Pathologist [facility] TSH 1.54 0.40 - 4.50 mIU/L [facility] Comment: Test Performed at: [facility] [address] Edward Caldwell MD Blood 09/21/2024 9:45 AM CDT 09/21/2024 9:45 AM CDT Consuelo Carl Rand DO CHEMISTRY ORDERABLES Final Result Performing Organization Address City/[facility]/ZIP Co de Phone Number [facility] [phone] [facility] [address] [place] [address] [place] [address] * LIPID PANEL (09/21/2024 9:45 AM CDT) CHOLESTEROL 148 <200 mg/dL [facility] HDL 80 > OR = 50 mg/dL [facility] TRIGLYCERIDE 122 <150 mg/dL [facility] LDL CALCULATED 48 mg/dL (calc) [facility] Comment: Reference range: <100 Desirable range <100 mg/dL for primary prevention; <70 mg/dL for patients with CHD or diabetic patients with > or = 2 CHD risk factors. LDL-C is now calculated using the Aurora calculation, which is a validated novel method providing better accuracy than the Friedewald equation in the estimation of LDL-C. Robert RANDALL et al. ARMANDO. 2013;310(19): 8543-6306 (http://education.EarlyTracks/faq/JIV602) CHOL/HDL RATIO 1.9 <5.0 (calc) [facility] NON-HDL CHOLESTEROL 68 <130 mg/dL (calc) [facility] Comment: For patients with diabetes plus 1 major ASCVD risk factor, treating to a non-HDL-C goal of <100 mg/dL (LDL-C of <70 mg/dL) is considered a therapeutic option. Test Performed at: [facility] [address] [place] [phone] Edward Caldwell MD Blood 09/21/2024 9:45 AM CDT 09/21/2024 9:45 AM CDT Consuelo Carl Rand DO CHEMISTRY ORDERABLES Final Result Performing Organization Address City/[facility]/ZIP Co de Phone Number [facility] [phone] [facility] [address] [place] [address] * PATHOLOGY (09/21/2024 9:20 AM CDT) CASE REPORT Surgical Pathology Report Case: [id number] Authorizing Provider: Consuelo Rand DO Collected: 09/21/2024 09:20 AM Ordering Location: [facility] Received: 09/23/2024 06:25 AM [facility] Pathologist: Radha Hendrickson MD Specimen: Skin, right ear 7:54 AM CDT [facility] FINAL DIAGNOSIS A. Skin, right ear, biopsy - Seborrheic keratosis Radha Hendrickson MD [id number] 7:54 AM CDT [facility] at 0754 CDT GROSS DESCRIPTION A. Received in a container of formalin labeled Sky -right ear is a 0.8 x 0.1 x 0.4 cm fragment of skin the skin surface is matthews, verrucous, and friable. The base is inked blue. The specimen is bisected and entirely submitted in A1. Dolores Rowley 5 7:54 AM CDT [facility] CLINICAL INFORMATION D49.2 - Abnormal skin growth [ICD-10-CM] 7:54 AM CDT [facility] COMMENT The [employer] voice-activated dictation system may have been used [...] determined by the Diagnostic Immunohistochemistry Laboratory of [facility] in compliance with CLIA'88 regulations. Some of these tests rely on the use of analyte specific reagents and are subject to specific labeling requirements by the FDA. All controls show appropriate reactivity. This testing was developed by the Diagnostic Immunohistochemistry Laboratory of [facility]. It has not been cleared or approved by the FDA. The FDA has determined that such clearance or approval is not necessary. 7:54 AM CDT [facility] Tissue TISSUE SPECIMEN FROM SKIN / Unknown Collection / Unknown 09/21/2024 9:20 AM CDT 09/23/2024 6:25 AM CDT Consuelo Rand DO PATHOLOGY/CYTOLOGY ORDERABL ES Final Result [facility] CLIA # [id number] [address] [address] [place] [address] * MAMMO 3D DARIO SCREEN BILAT W OR WO CAD (05/28/2023 9:20 AM BUSINESS ANALYST) Anatomical Region Laterality Modality Breast Bilateral Mammography, Dig ital Radiography Impressions 06/09/2023 6:29 AM BUSINESS ANALYST : No mammographic evidence of malignancy. BI-RADS ASSESSMENT: 1 - Negative RECOMMENDATION: Routine annual screening mammography. Narrative 06/09/2023 6:29 AM BUSINESS ANALYST EXAM: MAMMO SCRN BILAT 3D DARIO W [...] areas of architectural distortion. us Erik Umana MIXED CROP FARMER MAMMO ORDERABLES Final Res ult * HEMOGLOBIN A1C (09/08/2017 8:00 PM CDT) HEMOGLOBIN A1C 5.6 4.8 - 5.9 % 09/08/2017 9:46 PM CDT [facility] EST. AVG GLUCOSE, A1C 114 mg/dL 09/08/2017 9:46 PM CDT [facility] Blood Collection / Unknown 09/08/2017 8:00 PM CDT 09/08/2017 9:09 PM CDT Narrative [facility] - 09/08/2017 9:46 PM CDT HGB A1C INTERPRETATION NORMAL: <5.7% PRE-DIABETES: 5.7 - 6.4% DIABETES: 6.5% OR GREATER us Apolinar Butler DO CHEMISTRY ORDERABLES Final Resu lt [facility] CLIA # [id number] [address] [place] [address] [facility] CLIA # [id number] [address] [place] [id number] from Last 3 Months or Most Recently Relevant to Health Maintenance Insurance [facility] [id number] [place] [address] Care Teams Asic Design Engineer Relationship Specialty Start Date End Date Consuelo Rand DO [address] [place] [address] PCP - General 07/19/20
--- OUTSIDE RECORDS SUMMARY | 2024-10-07 18:01 | XMS_ITS | Clinical Summary ---
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 [id number] Procedure Note Abad Son MD - 08/10/2020 [...] The patient was given a result/recommendation letter. [id number] us Consuelo Rand DO MAMMO ORDERABLES Final Resu lt * HEMOGLOBIN A1C (09/08/2017 8:00 PM CDT) HEMOGLOBIN A1C 5.6 4.8 - 5.9 % 09/08/2017 9:46 PM CDT [facility] EST. AVG GLUCOSE, A1C 114 mg/dL 09/08/2017 9:46 PM CDT [facility] Blood Collection / Unknown 09/08/2017 8:00 PM CDT 09/08/2017 9:09 PM CDT Narrative [facility] - 09/08/2017 9:46 PM CDT HGB A1C INTERPRETATION NORMAL: <5.7% PRE-DIABETES: 5.7 - 6.4% DIABETES: 6.5% OR GREATER us Apolinar Butler DO CHEMISTRY ORDERABLES Final Resu lt [facility] [id number] [address] [place] [address] from Last 3 Months or Most Recently Relevant to Health Maintenance Additional Health Concerns Infection Onset Date Last Indicated MRSA Comment:Abscess 11/14/15 11/17/2015 11/17/2015 Insurance MEDICARE PART A AND B DISABILITY DETERMINATION Care Teams Jewel Staker Relationship Specialty Start Date End Date Consuelo Rand DO [address] [place] [address] PCP - General Family Practice 06/04/10
--- OUTSIDE RECORDS SUMMARY | 2024-10-07 18:01 | XMS_ITS | Encounter Summary ---
Author Organization [facility] Address [address] [place] [address] Care Team Providers Care Sole Assessor Name Role Phone Consuelo Rand Carl POTTER Primary Care Provider [phone] Reason for Referral * Outpatient Services (Routine) - Closed Specialty Diagnoses / Procedures Referred By Contac t Referred To Contact Radiology Diagnoses Elevated liver enzymes Procedures US ABDOMEN LIMITED Apolinar Butler DO [facility] Ultrasound [place] [address] [place] [address] Phone: tel: fax: Referral ID Status Reason Start Date Expiration Date V isits Requested Visits Authorized [id number] Closed GAN View CTS to Schedule (SGF) 12/22/2017 01/22/2019 1 1 Encounter Details Date Type Department Care Team (Latest Contact Info) Description 12/22/2017 Ancillary Orders [facility] Centralized Scheduling [address] [place] [address] Apolinar Butler DO NO ADDRESS ON FILE Elevated liver enzymes Social History Tobacco Use Types Packs/Day Years Used Date Smoking Tobacco: Never Alcohol Use Standard Drinks/Week Comments No 0 (1 standard drink = 0.6 oz pur e alcohol) Comments No Sex and Gender Information Value Date Recorded Sex Assigned at Not on file 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
--- OUTSIDE RECORDS SUMMARY | 2024-10-07 18:01 | XMS_ITS | Encounter Summary ---
Author Organization [facility] Address [address] [place] [address] Care Team Providers Care Churn Operator Margarine Name Role Phone Consuelo Rand DO Primary Care Provider [phone] Reason for Referral * Radiology Services (Routine) - Closed Specialty Diagnoses / Procedures Referred By Contac t Referred To Contact Radiology Diagnoses Abnormal mammogram Procedures MAMMO DIAG BILAT 3D DARIO W OR WO CAD MAMMO DIAGNOSTIC BILATERAL W OR WO CAD CHG DIAGNOSTIC MAMMOGRAPHY COMPUTER-AIDED DETCJ BI CHG DIGITAL BREAST TOMOSYNTHESIS BILATERAL Consuelo Rand DO [address] [place] [address] Phone: tel: fax: [facility] [employer] [address] [address] Phone: tel: fax: Referral ID Status Reason Start Date Expiration Date V isits Requested Visits Authorized [id number] Closed SGF [facility] TO SCHEDULE (SGF) 11/11/2019 12/11/2020 1 1 Encounter Details Date Type Department Care Team (Late st Contact Info) Description 02/09/2020 Ancillary Orders [facility] Medicine [place] [address] [place] [address] Consuelo Rand DO [address] [place] [address] Abnormal mammogram Social History Tobacco Use Types Packs/Day Years Used Date Smoking Tobacco: Never Alcohol Use Standard Drinks/Week Comments No 0 (1 standard drink = 0.6 oz pur e alcohol) Comments No Sex and Gender Information Value Date Recorded Sex Assigned at Not on file 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 DRY CLEANING MACHINE OPERATOR HELPER Gender Identity Not on file Sexual Orientation Not on file COVID-19 Exposure Response Date Recorded In the last month, have you been in contact with someone who was confirmed or suspected to have Coronavirus / COVID-19? No / Unsure 02/09/2020 10:56 AM DRY CLEANING MACHINE OPERATOR HELPER documented as of this encounter Plan of Treatment Not on file documented as of this encounter Results * (ABNORMAL) MAMMO DIAG BILAT 3D DARIO W OR WO CAD (02/09/2020 12:02 PM DRY CLEANING MACHINE OPERATOR HELPER) Anatomical Region Laterality Modality Breast Bilateral Mammography 02/09/2020 11:3 3 AM DRY CLEANING MACHINE OPERATOR HELPER Impressions 02/09/2020 4:50 PM DRY CLEANING MACHINE OPERATOR HELPER : Satisfactory six-month follow-up bilateral mammogram after bilateral benign ultrasound-guided core biopsies, as noted. I would recommend her next mammogram be a bilateral in six months, with the plan that if there has been no change, we can probably resume routine screening annual mammograms at that time. Patient received a result/recommendation letter. [id number] Narrative 02/09/2020 4:50 PM DRY CLEANING MACHINE OPERATOR HELPER Bilateral diagnostic mammogram 3-D dario with or [...] documented as of this encounter Care Teams Churn Operator Margarine Relationship Specialty Start Date End Date Consuelo Rand DO [address] [place] [address] PCP - General Family Practice 06/04/10 documented as of this encounter
--- OUTSIDE RECORDS SUMMARY | 2024-10-07 18:01 | XMS_ITS | Encounter Summary ---
Author Organization [employer] [facility] Address [address] [place] [address] Care Team Providers Care Sound Effects Supervisor Name Role Phone Consuelo Rand DO Primary Care Provider [phone] Encounter Details Date Type Department Care Team (Late st Contact Info) Description 07/23/2016 Ancillary Orders [facility] [address] [place] [address] Adalgisa Esquivel MD [address] [place] [address] Disability examination Social History Tobacco Use Types Packs/Day Years Used Date Smoking Tobacco: Never Alcohol Use Standard Drinks/Week Comments No 0 (1 standard drink = 0.6 oz pur e alcohol) Comments No Sex and Gender Information Value Date Recorded Sex Assigned at Not on file 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
--- OUTSIDE RECORDS SUMMARY | 2024-10-07 18:01 | XMS_ITS | Encounter Summary ---
Author Organization [facility] Address [address] [facility] [place] [address] Care Team Providers Care Junior Art Director Name Role Phone Consuelo Rand Carl POTTER Primary Care Provider Encounter Details Date Type Department Care Team (Late st Contact Info) Description 03/03/2017 Lab Requisition [facility] General Laboratory Services [place] [address] [place] [address] Apolinar Butler DO NO ADDRESS ON FILE Social History Tobacco Use Types Packs/Day Years Used Date Smoking Tobacco: Never Alcohol Use Standard Drinks/Week Comments No 0 (1 standard drink = 0.6 oz pur e alcohol) Comments No Sex and Gender Information Value Date Recorded Sex Assigned at Not on file 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 BREAD WRAPPING MACHINE FEEDER Gender Identity Not on file Sexual Orientation Not on file documented as of this encounter Plan of Treatment Not on file documented as of this encounter Procedures Procedure Name Priority Date/Time Associated Diagnosis Comments LIPID PANEL Routine 03/03/2017 7:50 PM BREAD WRAPPING MACHINE FEEDER COMPREHENSIVE METABOLIC PANEL Routine 03/03/2017 7:50 PM BREAD WRAPPING MACHINE FEEDER documented in this encounter Results * (ABNORMAL) LIPID PANEL (03/03/2017 7:50 PM BREAD WRAPPING MACHINE FEEDER) CHOLESTEROL 257(H) <200 mg/dL 03/03/2017 10:06 PM BREAD WRAPPING MACHINE FEEDER [facility] TRIGLYCERIDE 154(H) <150 mg/dL 03/03/2017 10:06 PM BREAD WRAPPING MACHINE FEEDER [facility] HDL 76(H) 40 - 59 mg/dL 03/03/2017 10:06 PM [facility] LDL CALCULATED 150(H) <100 mg/dL 03/03/2017 10:06 PM [facility] NON-HDL CHOLESTEROL 181(H) <130 mg/dL 03/03/2017 10:06 PM [facility] Blood Venipuncture / Unknown 03/03/2017 7:50 PM BREAD WRAPPING MACHINE FEEDER 03/03/2017 9:23 PM [facility] - 03/03/2017 10:06 PM BREAD WRAPPING MACHINE FEEDER TOTAL CHOLESTEROL mg/dL Desirable <200 Borderline high [...] Butler DO CHEMISTRY ORDERABLES Final Resu lt [facility] CLIA # [id number] [address] [place] [address] * (ABNORMAL) COMPREHENSIVE METABOLIC PANEL (03/03/2017 7:50 PM BREAD WRAPPING MACHINE FEEDER) SODIUM 142 136 - 145 mmol/L 03/03/2017 10:06 PM [facility] POTASSIUM 3.7 3.5 - 5.1 mmol/L 03/03/2017 10:06 PM [facility] CHLORIDE 98 98 - 107 mmol/L 03/03/2017 10:06 PM [facility] CO2 28 22 - 29 mmol/L 03/03/2017 10:06 PM [facility] CALCIUM 10.1(H) 8.6 - 10.0 mg/dL 03/03/2017 10:06 PM [facility] BUN 11 6 - 20 mg/dL 03/03/2017 10:06 PM [facility] CREATININE 0.71 0.51 - 0.95 mg/dL 03/03/2017 10:06 PM [facility] GLUCOSE 80 74 - 106 mg/dL 03/03/2017 10:06 PM [facility] TOTAL PROTEIN 8.0 6.6 - 8.7 g/dL 03/03/2017 10:06 PM [facility] ALBUMIN 4.6 3.5 - 5.2 g/dL 03/03/2017 10:06 PM [facility] BILIRUBIN TOTAL 0.5 0.0 - 1.2 mg/dL 03/03/2017 10:06 PM [facility] ALKALINE PHOSPHATASE 82 35 - 104 U/L 03/03/2017 10:06 PM [facility] AST 38(H) 10 - 35 U/L 03/03/2017 10:06 PM [facility] ALT 48(H) 10 - 35 U/L 03/03/2017 10:06 PM [facility] GFR >60 >=60 mL/min/1.7 3 sq meter 03/03/2017 10:06 PM [facility] Comment: eGFR has not been validated [...] mL/min/1.7 3 sq meter 03/03/2017 10:06 PM [facility] ANION GAP 16 12 - 20 mmol/L 03/03/2017 10:06 PM [facility] Blood Venipuncture / Unknown 03/03/2017 7:50 PM BREAD WRAPPING MACHINE FEEDER 03/03/2017 9:23 PM BREAD WRAPPING MACHINE FEEDER us Apolinar Butler DO CHEMISTRY ORDERABLES Final Resu lt [facility] CLIA # [id number] [address] [place] [address] documented in this encounter Visit Diagnoses Not on filedocumented in this encounter Additional Health Concerns Infection Onset Date Last Indicated Resolved Time MRSA Comment:Abscess 11/14/15 11/17/2015 11/17/2015 documented as of this encounter Care Teams Junior Art Director Relationship Specialty Start Date End Date Consuelo Rand DO [address] [place] [address] PCP - General Family Practice 06/04/10 documented as of this encounter
--- OUTSIDE RECORDS SUMMARY | 2024-10-07 18:01 | XMS_ITS | Encounter Summary ---
Author Organization [facility] Address [address] [facility] [place] [address] Care Team Providers Care Maid Supervisor Name Role Phone Consuelo Rand Carl POTTER Primary Care Provider Encounter Details Date Type Department Care Team (Late st Contact Info) Description 07/28/2017 Lab Requisition [facility] General Laboratory Services [place] [address] [place] [address] Apolinar Butler DO NO ADDRESS ON FILE Social History Tobacco Use Types Packs/Day Years Used Date Smoking Tobacco: Never Alcohol Use Standard Drinks/Week Comments No 0 (1 standard drink = 0.6 oz pur e alcohol) Comments No Sex and Gender Information Value Date Recorded Sex Assigned at Not on file 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 INTEGRATED CIRCUITS INSPECTOR Gender Identity Not on file Sexual [...] 176 <200 mg/dL 07/28/2017 11:[address] [facility] TRIGLYCERIDE 87 <150 mg/dL 07/28/2017 11:[address] [facility] HDL 78(H) 40 - 59 mg/dL 07/28/2017 11:[address] [facility] LDL CALCULATED 81 <100 mg/dL 07/28/2017 11:50 PM [facility] NON-HDL CHOLESTEROL 98 <130 mg/dL 07/28/2017 11:50 PM [facility] Blood Collection / Unknown 07/28/2017 9:00 PM CDT 07/28/2017 9:28 PM CDT [facility] - 07/28/2017 11:50 PM CDT TOTAL CHOLESTEROL [...] Butler DO CHEMISTRY ORDERABLES Final Resu lt [facility] CLIA # [id number] [address] [place] [address] * (ABNORMAL) COMPREHENSIVE METABOLIC PANEL (07/28/2017 9:00 PM CDT) SODIUM 143 136 - 145 mmol/L 07/28/2017 11:50 PM [facility] POTASSIUM 3.6 3.5 - 5.1 mmol/L 07/28/2017 11:50 PM [facility] CHLORIDE 98 98 - 107 mmol/L 07/28/2017 11:50 PM [facility] CO2 28 22 - 29 mmol/L 07/28/2017 11:50 PM [facility] CALCIUM 9.8 8.6 - 10.0 mg/dL 07/28/2017 11:50 PM [facility] BUN 11 6 - 20 mg/dL 07/28/2017 11:50 PM [facility] CREATININE 0.72 0.51 - 0.95 mg/dL 07/28/2017 11:50 PM [facility] GLUCOSE 84 74 - 106 mg/dL 07/28/2017 11:50 PM [facility] TOTAL PROTEIN 8.0 6.6 - 8.7 g/dL 07/28/2017 11:50 PM [facility] ALBUMIN 4.7 3.5 - 5.2 g/dL 07/28/2017 11:50 PM [facility] BILIRUBIN TOTAL 0.6 0.0 - 1.2 mg/dL 07/28/2017 11:50 PM [facility] ALKALINE PHOSPHATASE 93 35 - 104 U/L 07/28/2017 11:50 PM [facility] AST 39(H) 10 - 35 U/L 07/28/2017 11:50 PM [facility] ALT 46(H) 10 - 35 U/L 07/28/2017 11:50 PM [facility] GFR >60 >=60 mL/min/1.7 3 sq meter 07/28/2017 11:50 PM [facility] Comment: eGFR has not been validated for [...] mL/min/1.7 3 sq meter 07/28/2017 11:50 PM [facility] ANION GAP 17 12 - 20 mmol/L 07/28/2017 11:50 PM [facility] Blood Collection / Unknown 07/28/2017 9:00 PM CDT 07/28/2017 9:28 PM CDT us Apolinar Butler DO CHEMISTRY ORDERABLES Final Resu lt [facility] # [id number] [address] [place] [address] documented in this encounter Visit Diagnoses Not on filedocumented in this encounter Additional Health Concerns Infection Onset Date Last Indicated Resolved Time MRSA Comment:Abscess 11/14/15 11/17/2015 11/17/2015 documented as of this encounter Care Teams Maid Supervisor Relationship Specialty Start Date End Date Consuelo Rand DO [address] [place] [id number] PCP - General Family Practice 06/04/10 documented as of this encounter
--- OUTSIDE RECORDS SUMMARY | 2024-10-07 18:01 | XMS_ITS | Encounter Summary ---
Author Organization [facility] Address [address] [facility] [place] [address] Care Team Providers Care Airport Manager Name Role Phone Consuelo Rand Carl POTTER Primary Care Provider [phone] Encounter Details Date Type Department Care Team (Late st Contact Info) Description 05/05/2017 Lab Requisition 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 Gender Identity Not on file Sexual Orientation Not on file documented as of this encounter Plan of Treatment Not on file documented as of this encounter Procedures Procedure Name Priority Date/Time Associated Diagnosis Comments BRAIN NATRIURETIC PEPTIDE, BNP OR PROBNP Routine 05/05/2017 8:15 PM CONCRETE VIBRATOR OPERATOR BASIC METABOLIC PANEL Routine 05/05/2017 8:15 PM CONCRETE VIBRATOR OPERATOR documented in this encounter Results * BRAIN NATRIURETIC PEPTIDE, BNP OR PROBNP (05/05/2017 8:15 PM CONCRETE VIBRATOR OPERATOR) PROBNP, N TERMINAL 75 0 - 125 pg/mL 05/05/2017 10:53 PM CONCRETE VIBRATOR OPERATOR [facility] Blood Venipuncture / Unknown 05/05/2017 8:15 PM CONCRETE VIBRATOR OPERATOR 05/05/2017 10:08 PM CONCRETE VIBRATOR OPERATOR us Apolinar Butler DO CHEMISTRY ORDERABLES [facility] [id number] [address] [place] [address] * BASIC METABOLIC PANEL (05/05/2017 8:15 PM CONCRETE VIBRATOR OPERATOR) SODIUM 143 136 - 145 mmol/L 05/05/2017 10:53 PM [facility] POTASSIUM 3.8 3.5 - 5.1 mmol/L 05/05/2017 10:53 PM [facility] CHLORIDE 103 98 - 107 mmol/L 05/05/2017 10:53 PM [facility] CO2 28 22 - 29 mmol/L 05/05/2017 10:53 PM [facility] CALCIUM 9.8 8.6 - 10.0 mg/dL 05/05/2017 10:53 PM [facility] BUN 17 6 - 20 mg/dL 05/05/2017 10:53 PM [facility] CREATININE 0.69 0.51 - 0.95 mg/dL 05/05/2017 10:53 PM [facility] GLUCOSE 97 74 - 106 mg/dL 05/05/2017 10:53 PM [facility] GFR >60 >=60 mL/min/1.7 3 sq meter 05/05/2017 10:53 PM [facility] Comment: eGFR has not [...] mL/min/1.7 3 sq meter 05/05/2017 10:53 PM [facility] ANION GAP 12 12 - 20 mmol/L 05/05/2017 10:53 PM CONCRETE VIBRATOR OPERATOR [facility] Blood Venipuncture / Unknown 05/05/2017 8:15 PM CONCRETE VIBRATOR OPERATOR 05/05/2017 10:08 PM CONCRETE VIBRATOR OPERATOR us Apolinar Butler DO CHEMISTRY ORDERABLES Final Resu lt [facility] CLIA # [id number] [address] [place] [address] documented in this encounter Visit Diagnoses Not on filedocumented in this encounter Additional Health Concerns Infection Onset Date Last Indicated Resolved Time MRSA Comment:Abscess 11/14/15 11/17/2015 11/17/2015 documented as of this encounter Care Teams Airport Manager Relationship Specialty Start Date End Date Consuelo Rand DO [address] [place] [address] PCP - General Family Practice 06/04/10 documented as of this encounter
--- OUTSIDE RECORDS SUMMARY | 2024-10-07 18:01 | XMS_ITS | Encounter Summary ---
Author Organization [facility] Address [address] [place] [address] Care Team Providers Care Morgue Technician Name Role Phone Consuelo Rand Carl POTTER Primary Care Provider Encounter Details Date Type Department Care Team (Late st Contact Info) Description 09/08/2017 Lab Requisition [facility] Laboratory Services [place] [address] [place] [address] Apolinar Butler DO NO ADDRESS ON FILE Social History Tobacco Use Types Packs/Day Years Used Date Smoking Tobacco: Never Alcohol Use Standard Drinks/Week Comments No 0 (1 standard drink = 0.6 oz pur e alcohol) Comments No Sex and Gender Information Value Date Recorded Sex Assigned at Not on file 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 SERVICES Gender Identity Not on file Sexual Orientation [...] VE Non-react lillian 09/09/2017 9:16 PM CDT [facility] HEPATITIS B CORE IGM Non-reacti ve Non-react lillian 09/09/2017 9:16 PM CDT [facility] HEPATITIS A IGM Non-reacti ve Non-react lillian 09/09/2017 9:16 PM CDT [facility] HEPATITIS C AB NON-REACTI VE Non-react lillian 09/09/2017 9:16 PM CDT [facility] Blood Collection / Unknown 09/08/2017 8:00 PM CDT 09/08/2017 9:08 PM CDT us Apolinar Butler DO CHEMISTRY ORDERABLES Final Resu lt [facility] CLIA# [id number] [address] [place] [address] * HEMOGLOBIN A1C (09/08/2017 8:00 PM CDT) HEMOGLOBIN A1C 5.6 4.8 - 5.9 % 09/08/2017 9:46 PM CDT [facility] EST. AVG GLUCOSE, A1C 114 mg/dL 09/08/2017 9:46 PM CDT [facility] Blood Collection / Unknown 09/08/2017 8:00 PM CDT 09/08/2017 9:09 PM CDT Narrative [facility] - 09/08/2017 9:46 PM CDT HGB A1C INTERPRETATION NORMAL: <5.7% PRE-DIABETES: 5.7 - 6.4% DIABETES: 6.5% OR GREATER us Apolinar Butler DO CHEMISTRY ORDERABLES Final Resu lt [facility] CLIA # [id number] [address] [place] [address] documented in this encounter Visit Diagnoses Not on filedocumented in this encounter Additional Health Concerns Infection Onset Date Last Indicated Resolved Time MRSA Comment:Abscess 11/14/15 11/17/2015 11/17/2015 documented as of this encounter Care Teams Morgue Technician Relationship Specialty Start Date End Date Consuelo Rand DO [address] [place] [address] PCP - General Family Practice 06/04/10 documented as of this encounter
--- OUTSIDE RECORDS SUMMARY | 2024-10-07 18:01 | XMS_ITS | Encounter Summary ---
Author Organization [facility] Address [address] [place] [address] Care Team Providers Care Dope Heater Name Role Phone Consuelo Rand Primary Care Provider Encounter Details Date Type Department Care Team (Late st Contact Info) Description 07/23/2016 Ancillary Orders [facility] [address] [place] [address] Adalgisa Esquivel MD [address] [place] [address] Disability examination Social History Tobacco Use Types Packs/Day Years Used Date Smoking Tobacco: Never Alcohol Use Standard Drinks/Week Comments No 0 (1 standard drink = 0.6 oz pur e alcohol) Comments No Sex and Gender Information Value Date Recorded Sex Assigned at Not on file 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 [id number] Narrative Procedure Note Omi Springer MD - [...] ossified intra-articular bodies within the popliteus recess. [id number] Adalgisa Esquivel MD DIAGNOSTIC IMAGING ORDERABLES Fi nal Result documented in this encounter Visit Diagnoses Diagnosis Disability examination Issue of medical certificate for disability examination Disability examination Issue of medical certificate for disability examination documented in this encounter Additional Health Concerns Infection Onset Date Last Indicated Resolved Time MRSA Comment:Abscess 11/14/15 11/17/2015 11/17/2015 documented as of this encounter Care Teams Dope Heater Relationship Specialty Start Date End Date Consuelo Rand DO [address] [place] [address] PCP - General Family Practice 06/04/10 documented as of this encounter
--- OUTSIDE RECORDS SUMMARY | 2024-10-07 18:01 | XMS_ITS | Encounter Summary ---
Author Organization [facility] Address [address] [place] [address] Care Team Providers Care Marine Consultant Name Role Phone Consuelo Rand Primary Care Provider Encounter Details Date Type Department Care Team (Late st Contact Info) Description 01/20/[address] 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 Gender Identity Not on file Sexual [...] K/uL 01/20/2013 2:03 PM CDT [facility] LABORATORY SERVICES [facility] RBC 4.55 3.93 - 5.22 M/uL 01/20/2013 2:03 PM CDT [facility] [place] HEMOGLOBIN 13.9 11.2 - 15.7 g/dL 01/20/2013 2:03 PM CDT [facility] [place] HEMATOCRIT 42.1 34.1 - 44.9 % 01/20/2013 2:03 PM CDT [facility] [place] MCV 92.5 79.4 - 94.8 fL 01/20/2013 2:03 PM CDT [facility] [place] MCH 30.5 25.6 - 32.2 pg 01/20/2013 2:03 PM CDT [facility] [place] MCHC 33.0 32.2 - 35.5 g/dL 01/20/2013 2:03 PM CDT [facility] [place] RDW 13.3 11.0 - 14.5 % 01/20/2013 2:03 PM CDT [facility] [place] RDW-STDEV 44.2 37.0 - 54.0 fL 01/20/2013 2:03 PM CDT [facility] [place] PLATELETS 257 163 - 337 K/uL 01/20/2013 2:03 PM CDT [facility] [place] MPV 10.0 10.0 - 14.8 fL 01/20/2013 2:03 PM CDT [facility] [place] NEUTROPHILS 58 34 - 71 % 01/20/2013 2:03 PM CDT [facility] [place] LYMPHOCYTES 31 19 - 52 % 01/20/2013 2:03 PM CDT [facility] [place] MONOCYTES 8 [...] K/uL 01/20/2013 2:03 PM CDT [facility] [place] EOSINOPHIL ABSOLUTE 0.14 0.04 - 0.36 K/uL 01/20/2013 2:03 PM CDT [facility] [place] BASOPHILS ABSOLUTE 0.06 0.01 - 0.08 K/uL 01/20/2013 2:03 PM CDT [facility] LABORATORY [facility] [place] Blood specimen (specimen) Venipuncture - Lab Collect / Unknown 01/20/2013 8:45 AM CDT 01/20/2013 11:47 AM CDT us Consuelo Rand DO HEMATOLOGY ORDERABLES Final Result [facility] [place] CLIA # [id number] [address] [place] [address], [place] [address] * COMPREHENSIVE METABOLIC PANEL (01/20/2013 8:45 AM CDT) SODIUM 142 136 - 145 mmol/L 01/20/2013 2:49 PM CDT [facility] [place] POTASSIUM 3.7 3.5 - 5.1 mmol/L 01/20/2013 2:49 PM CDT [facility] [place] CHLORIDE 104 98 - 107 mmol/L 01/20/2013 2:49 PM CDT [facility] LABORATORY [facility] [place] CO2 27 21 - 32 mmol/L 01/20/2013 2:49 PM CDT [facility] LABORATORY [facility] [place] CALCIUM 9.2 8.5 - 10.1 mg/dL 01/20/2013 2:49 PM CDT [facility] [place] BUN 16 7 - 18 mg/dL 01/20/2013 2:49 PM CDT [facility] [place] CREATININE 0.90 0.60 - 1.30 mg/dL 01/20/2013 2:49 PM CDT [facility] LABORATORY [facility] [place] GLUCOSE 79 74 - 106 mg/dL 01/20/2013 2:49 PM CDT [facility] LABORATORY [facility] [place] TOTAL PROTEIN 7.8 6.4 - 8.2 g/dL 01/20/2013 2:49 PM CDT [facility] LABORATORY [facility] [place] ALBUMIN 3.8 3.4 - 5.0 g/dL 01/20/2013 2:49 PM [facility] BILIRUBIN TOTAL 0.5 0.2 - 1.0 mg/dL 01/20/2013 2:49 PM T [facility] ALKALINE PHOSPHATASE 110 50 - 136 U/L 01/20/2013 2:49 PM [facility] AST 19 15 - 37 U/L 01/20/2013 2:49 PM [facility] ALT 30 30 - 65 U/L 01/20/2013 2:49 PM [facility] GFR 65 >=60 mL/min/1.7 3 sq meter 01/20/2013 2:49 PM [facility] Comment: eGFR has not been validated [...] mL/min/1.7 3 sq meter 01/20/2013 2:49 PM [facility]END[facility] Comment: eGFR has not been [...] DO CHEMISTRY ORDERABLES Final Result [id number] [address] [address] * (ABNORMAL) LIPID PANEL (01/20/2013 8:45 AM CDT) CHOLESTEROL 234(H) 130 - 200 mg/dL 01/20/2013 2:49 PM CDT [facility] LABORATORY [facility] TRIGLYCERIDE 160 30 - 200 mg/dL 01/20/2013 2:49 PM CDT [facility] HDL 60 35 - 80 mg/dL 01/20/2013 2:49 PM CDT [facility] LDL CALCULATED 142(H) 0 - 100 mg/dL 01/20/2013 2:49 PM CDT [facility] Blood specimen (specimen) Venipuncture - Lab Collect / Unknown 01/20/2013 8:45 AM CDT 01/20/2013 11:47 AM CDT Narrative [facility] LABORATORY [facility] - 01/20/2013 2:49 PM CDT TOTAL CHOLESTEROL [...] DO CHEMISTRY ORDERABLES Final Result [facility] [employer] [facility] CLIA # [id number] [address] [address] documented in this encounter Visit Diagnoses Not on filedocumented in this encounter Additional Health Concerns Infection Onset Date Last Indicated Resolved Time MRSA Comment:Abscess 11/14/15 11/17/2015 11/17/2015 documented as of this encounter Care Teams Marine Consultant Relationship Specialty Start Date End Date Consuelo Rand DO [address] [place] [address] PCP - General Family Practice 06/04/10 documented as of this encounter
--- OUTSIDE RECORDS SUMMARY | 2024-10-07 18:01 | XMS_ITS | Encounter Summary ---
Author Organization [facility] Address [address] [place] [address] Care Team Providers Care Air Traffic Controller Center Name Role Phone Consuelo Rand Carl POTTER Primary Care Provider Encounter Details Date Type Department Care Team (Late st Contact Info) Description 03/16/2018 Lab Requisition [facility] General Laboratory Services [place] [address] [place] [address] Apolinar Butler DO NO ADDRESS ON FILE Social History Tobacco Use Types Packs/Day Years Used Date Smoking Tobacco: Never Alcohol Use Standard Drinks/Week Comments No 0 (1 standard drink = 0.6 oz pur e alcohol) Comments No Sex and Gender Information Value Date Recorded Sex Assigned at Not on file 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 PRESIDENT ERGONOMIC CONSULTING Gender Identity Not on file Sexual Orientation Not on file documented as of this encounter Plan of Treatment Not on file documented as of this encounter Procedures Procedure Name Priority Date/Time Associated Diagnosis Comments ALT Routine 03/16/2018 10:30 PM PRESIDENT ERGONOMIC CONSULTING LIPID PANEL Routine 03/16/2018 10:30 PM PRESIDENT ERGONOMIC CONSULTING documented in this encounter Results * (ABNORMAL) LIPID PANEL (03/16/2018 10:30 PM PRESIDENT ERGONOMIC CONSULTING) CHOLESTEROL 126 <200 mg/dL 03/17/2018 4:33 AM PRESIDENT ERGONOMIC CONSULTING [facility] TRIGLYCERIDE 80 <150 mg/dL 03/17/2018 4:33 AM PRESIDENT ERGONOMIC CONSULTING [facility] HDL 63(H) 40 - 59 mg/dL 03/17/2018 4:33 AM PRESIDENT ERGONOMIC CONSULTING [facility] LDL CALCULATED 47 <100 mg/dL 03/17/2018 4:33 AM PRESIDENT ERGONOMIC CONSULTING [facility] NON-HDL CHOLESTEROL 63 <130 mg/dL 03/17/2018 4:33 AM [facility] Blood Collection / Unknown 03/16/2018 10:30 PM PRESIDENT ERGONOMIC CONSULTING 03/17/2018 3:42 AM PRESIDENT ERGONOMIC CONSULTING Narrative [facility] - 03/17/2018 4:33 AM PRESIDENT ERGONOMIC CONSULTING TOTAL CHOLESTEROL mg/dL Desirable <200 Borderline high [...] ORDERABLES Final Resu lt Performing Organization Address City/[facility] Co de Phone Number [facility] CLIA # [id number] [address] [place] [phone] * ALT (03/16/2018 10:30 PM PRESIDENT ERGONOMIC CONSULTING) ALT 29 10 - 35 U/L 03/17/2018 4:33 AM PRESIDENT ERGONOMIC CONSULTING [facility] Blood Collection / Unknown 03/16/2018 10:30 PM PRESIDENT ERGONOMIC CONSULTING 03/17/2018 3:42 AM PRESIDENT ERGONOMIC CONSULTING us Apolinar Butler DO CHEMISTRY ORDERABLES Final Resu lt Performing Organization Address City/[facility]/ZIP Co de Phone Number [facility] CLIA # [id number] [address] [place] [address] documented in this encounter Visit Diagnoses Not on filedocumented in this encounter Additional Health Concerns Infection Onset Date Last Indicated Resolved Time MRSA Comment:Abscess 11/14/15 11/17/2015 11/17/2015 documented as of this encounter Care Teams Air Traffic Controller Center Relationship Specialty Start Date End Date Consuelo Rand DO [address] [place] [address] PCP - General Family Practice 06/04/10 documented as of this encounter
--- OUTSIDE RECORDS SUMMARY | 2024-10-07 18:01 | XMS_ITS | Encounter Summary ---
Author Organization [facility] Address [address] [place] [address] Care Team Providers Care Liquid Waste Treatment Plant Operator Name Role Phone Consuelo Rand DO Primary Care Provider [phone] Reason for Referral * Radiology Services (Routine) - Closed Specialty Diagnoses / Procedures Referred By Contac t Referred To Contact Radiology Diagnoses Abnormal mammogram Procedures MAMMO DIAG BILAT 3D DARIO W OR WO CAD CHG DIAGNOSTIC MAMMOGRAPHY COMPUTER-AIDED DETCJ BI CHG DIGITAL BREAST TOMOSYNTHESIS BILATERAL Consuelo Rand DO [address] [place] [address] Phone: tel: fax: [facility] [address] [address] Phone: tel: fax: Referral ID Status Reason Start Date Expiration Date V isits Requested Visits Authorized [id number] Closed [facility] to Schedule 07/11/2020 08/11/2021 1 1 Encounter Details Date Type Department Care Team ([facility] st Contact Info) Description 07/11/2020 Ancillary Orders [facility] Pre-Registration [place] CALL TO MAKE APPOINTMENT ONLY [address] [place] [address] Consuelo Rand DO [address] [place] [address] Abnormal mammogram Social History Tobacco Use Types Packs/Day Years Used Date Smoking Tobacco: Never Alcohol Use Standard Drinks/Week Comments No 0 (1 standard drink = 0.6 oz pur e alcohol) Comments No Sex and Gender Information Value Date Recorded Sex Assigned at Not on file 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 [id number] Procedure Note Abad Son MD - 08/10/2020 [...] The patient was given a result/recommendation letter. [id number] us Consuelo Rand DO MAMMO ORDERABLES Final Resu lt documented in this encounter Visit Diagnoses Diagnosis Abnormal mammogram Abnormal mammogram, unspecified Abnormal mammogram Abnormal mammogram, unspecified documented in this encounter Additional Health Concerns Infection Onset Date Last Indicated Resolved Time MRSA Comment:Abscess 11/14/15 11/17/2015 11/17/2015 documented as of this encounter Care Teams Liquid Waste Treatment Plant Operator Relationship Specialty Start Date End Date Consuelo Rand DO [address] [place] [address] PCP - General Family Practice 06/04/10 documented as of this encounter
--- OUTSIDE RECORDS SUMMARY | 2024-10-07 18:01 | XMS_ITS | Encounter Summary ---
Author Organization [facility] Address [address] [place] [address] Care Team Providers Care Masking Machine Operator Name Role Phone Consuelo Rand DO Primary Care Provider Reason for Referral * Radiology Services (Routine) - Closed Specialty Diagnoses / Procedures Referred By Contac t Referred To Contact Diagnoses Abnormal mammogram Procedures MAMMO POST US/STEREO GUIDED PROCEDURE BILATERAL Consuelo Rand DO [address] [place] [address] Phone: tel: fax: [facility] Pre-Registration [place] CALL TO MAKE APPOINTMENT ONLY [address] [place] [address] Phone: tel: fax: Referral ID Status Reason Start Date Expiration Date Visits Re quested Visits Authorized [id number] Closed 06/16/2019 07/16/2020 1 1 Encounter Details Date Type Department Care Team (Late st Contact Info) Description 06/16/2019 Ancillary Orders [facility] [address] [address] Consuelo Rand DO [address] [place] [address] Abnormal mammogram Social History Tobacco Use Types Packs/Day Years Used Date Smoking Tobacco: Never Alcohol Use Standard Drinks/Week Comments No 0 (1 standard drink = 0.6 oz pur e alcohol) Comments No Sex and Gender Information Value Date Recorded Sex Assigned at Not on file 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 [id number] Impressions 07/02/2019 10:07 AM CDT : Successful ultrasound-guided needle core biopsy of the bilateral breast masses as described above. Further recommendations will be based on pathology results. [id number] Narrative 07/02/2019 10:07 AM CDT BILATERAL BREAST [...] recommendations will be based on pathology results. [id number] Consuelo Rand DO MAMMO ORDERABLES Edited Res ult - Final documented in this encounter Visit Diagnoses Diagnosis Abnormal mammogram Abnormal mammogram, unspecified Abnormal mammogram Abnormal mammogram, unspecified documented in this encounter Additional Health Concerns Infection Onset Date Last Indicated Resolved Time MRSA Comment:Abscess 11/14/15 11/17/2015 11/17/2015 documented as of this encounter Care Teams Masking Machine Operator Relationship Specialty Start Date End Date Consuelo Rand DO [address] [place] [address] PCP - General Family Practice 06/04/10 documented as of this encounter
--- NOTE | 2024-10-07 18:02 | W.ED.CHESTPA ---
HPI - Chest Pain General: Stated Complaint: stemi History of Present Illness: 66-year-old female received is an ER to ER transfer from [facility] with an acute STEMI symptoms that began at noon. I talked to Dr. Storey who is at [facility] ER accept the patient given Plavix and heparin. Other andrea report was called and they were on a heparin drip asked him to stop the heparin drip. On arrival Strategy Manager is here and waiting in the department at the ambulance bay door took patient directly to Strategy Manager. Patient is not appear to be in any acute distress no respiratory distress at this time. Per EMS verbal report vital signs have been stable. Review of Systems Card: Reports: chest pain Physical Exam Const: COMMON NORMALS: no acute distress GENERAL APPEARANCE: cooperative and comfortable ORIENTATION/CONSCIOUSNESS: Yes awake HENMT: COMMON NORMALS: normocephalic, atraumatic and hearing grossly normal bilaterally HEAD & SCALP: normocephalic and atraumatic Resp: COMMON NORMALS: normal respiratory effort and No use of accessory muscles MDM - Chest Pain Medical Decision Making Patient proceeded directly to Strategy Manager from the ambulance. Did briefly see the patient and passing. Strategy Manager team assumed care of the patient immediately. Confirm prior to arrival with Dr. Storey patient received Plavix and aspirin. All radiology interpretation(s) finalized by discharge Discharge Plan Discharge Patient Disposition: Admitted As Inpatient Clinical Impression: ST elevation [place] (STEMI) Condition: Stable Coding Level of Care Code ED Building Equipment Inspector for Zhen Chowdary
--- OUTSIDE RECORDS SUMMARY | 2024-10-07 18:02 | XMS_ITS | Encounter Summary ---
Author Organization [facility] Address [address] [place] [address] Care Team Providers Care Grain Oilseed Or Pasture Farm Worker Name Role Phone Consuelo Rand Carl POTTER Primary Care Provider Encounter Details Date Type Department Care Team (Late st Contact Info) Description 06/15/2018 Lab Requisition [facility] General Laboratory Services [place] [address] [place] [address] Apolinar Butler DO NO ADDRESS ON FILE Social History Tobacco Use Types Packs/Day Years Used Date Smoking Tobacco: Never Alcohol Use Standard Drinks/Week Comments No 0 (1 standard drink = 0.6 oz pur e alcohol) Comments No Sex and Gender Information Value Date Recorded Sex Assigned at Not on file 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 HAND CULTIVATOR Gender Identity Not on file Sexual Orientation [...] 135 <200 mg/dL 06/16/2018 1:28 AM CDT [facility] TRIGLYCERIDE 45 <150 mg/dL 06/16/2018 1:28 AM CDT [facility] HDL 76(H) 40 - 59 mg/dL 06/16/2018 1:28 AM CDT [facility] LDL CALCULATED 50 <100 mg/dL 06/16/2018 1:28 AM CDT [facility] NON-HDL CHOLESTEROL 59 <130 mg/dL 06/16/2018 1:28 AM CDT [facility] Blood Collection / Unknown 06/15/2018 10:00 PM CDT 06/16/2018 12:48 AM CDT Narrative [facility] - 06/16/2018 1:28 AM CDT TOTAL CHOLESTEROL [...] ORDERABLES Final Resu lt Performing Organization Address City/[facility]/ZIP Co de Phone Number [facility] CLIA # [id number] [address] [place] [address] * ALT (06/15/2018 10:00 PM CDT) ALT 21 10 - 35 U/L 06/16/2018 1:27 AM CDT [facility] Blood Collection / Unknown 06/15/2018 10:00 PM CDT 06/16/2018 12:48 AM CDT us Apolinar Butler DO CHEMISTRY ORDERABLES Final Resu lt Performing Organization Address [facility] Co de Phone Number [facility] CLIA # [id number] [address] [place] [phone] documented in this encounter Visit Diagnoses Not on filedocumented in this encounter Additional Health Concerns Infection Onset Date Last Indicated Resolved Time MRSA Comment:Abscess 11/14/15 11/17/2015 11/17/2015 documented as of this encounter Care Teams Grain Oilseed Or Pasture Farm Worker Relationship Specialty Start Date End Date Consuelo Rand DO [address] [place] [address] PCP - General Family Practice 06/04/10 documented as of this encounter
--- OUTSIDE RECORDS SUMMARY | 2024-10-07 18:02 | XMS_ITS | Encounter Summary ---
Author Organization [facility] Address [address] [place] [address] Care Team Providers Care Field Tech Name Role Phone Consuelo Rand Carl POTTER Primary Care Provider Encounter Details Date Type Department Care Team (Late st Contact Info) Description 09/28/2018 Lab Requisition [facility] General Laboratory Services [place] [address] [place] [address] Apolinar Butler DO NO ADDRESS ON FILE Social History Tobacco Use Types Packs/Day Years Used Date Smoking Tobacco: Never Alcohol Use Standard Drinks/Week Comments No 0 (1 standard drink = 0.6 oz pur e alcohol) Comments No Sex and Gender Information Value Date Recorded Sex Assigned at Not on file 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 [employer] Gender Identity Not on file Sexual Orientation [...] 155 <200 mg/dL 09/28/2018 10:45 PM CDT [facility] TRIGLYCERIDE 55 <150 mg/dL 09/28/2018 10:45 PM CDT [facility] HDL 84(H) 40 - 59 mg/dL 09/28/2018 10:45 PM CDT [facility] LDL CALCULATED 60 <100 mg/dL 09/28/2018 10:45 PM CDT [facility] NON-HDL CHOLESTEROL 71 <130 mg/dL 09/28/2018 10:45 PM CDT [facility] Blood Collection / Unknown 09/28/2018 8:30 PM CDT 09/28/2018 10:22 PM CDT Narrative [facility] - 09/28/2018 10:45 PM CDT TOTAL CHOLESTEROL [...] [facility]/ZIP Co de Phone Number [facility] CLIA # [id number] [address] [place] [address] * ALT (09/28/2018 8:30 PM CDT) ALT 24 10 - 35 U/L 09/28/2018 10:45 PM CDT [facility] Blood Collection / Unknown 09/28/2018 8:30 PM CDT 09/28/2018 10:22 PM CDT us Apolinar Butler DO CHEMISTRY ORDERABLES Final Resu lt Performing Organization Address [facility]/ZIP Co de Phone Number [facility] CLIA # [id number] [address] [place] [phone] documented in this encounter Visit Diagnoses Not on filedocumented in this encounter Additional Health Concerns Infection Onset Date Last Indicated Resolved Time MRSA Comment:Abscess 11/14/15 11/17/2015 11/17/2015 documented as of this encounter Care Teams Field Tech Relationship Specialty Start Date End Date Consuelo Rand DO [address] [place] [address] PCP - General Family Practice 06/04/10 documented as of this encounter
[2024-10-07 18:05] VITALS: BP 152/97; PULSE 74; RESP 17; TEMP 36.6; O2SAT 90; BMI 33.3
--- NOTE | 2024-10-07 18:14 | PC.NURSE ---
UPON ARRIVAL, PT WAS TAKEN DIRECTLY FROM [facility] TO THE [place] MACHINE OPERATOR. AFTER GETTING TO THE [place] MACHINE OPERATOR, IT WAS FOUND THAT THE [place] MACHINE OPERATOR WAS DOWN. PT WAS BROUGHT BACK TO ED AT THIS TIME.
[2024-10-07] MEDS: heparin drip 25,000 UNIT/500 ML PREMIX 21.77 UNIT IV (18:26)
[2024-10-07 18:57] LABS: Hematocrit 45.7 % (36-47); Hemoglobin 14.60 g/dL (11.27-16.99); Mean Corpuscular HGB Conc 31.9 g/dL (30-55); Mean Corpuscular Hemoglobin 29.7 pg (27-33); Mean Corpuscular Volume 92.9 fl (85-98); Nucleated Red Blood Cells % 0 %; Platelet Count 266 10^3/cmm (157-399); Red Blood Count 4.92 10^6/uL (3.85-5.65); White Blood Count 10.48 10^3/uL (3.29-11.43)
[2024-10-07 18:58] VITALS: BP 154/102; PULSE 72; RESP 18; O2SAT 97
--- NOTE | 2024-10-07 19:03 | ECG_ITS ---
[employer] Test Date: 2024-10-07 Pat Name: Nimo Sky Department: Room: Gender: Female Academic Affairs Director: : 1960 Requested By: Danny Henry Order Number: [id number] Reading MD: Measurements Intervals [place] Rate: 68 P: 78 MD: 224 QRS: -72 QRSD: 123 T: 51 QT: 420 QTc: 450 Interpretive Statements SINUS RHYTHM WITH FIRST DEGREE AV BLOCK LEFT ANTERIOR FASCICULAR BLOCK [QRS AXIS <= -45, QR IN I, RS IN II] POSSIBLE ANTERIOR MYOCARDIAL INFARCTION , OF INDETERMINATE AGE [30 ms Q WAVE IN V3/V4, OR R < 0.2 mV IN V4] Compared to ECG 10/07/2024 18:13:28 First degree AV block now present Myocardial infarct finding still present [email or web address]
[2024-10-07 19:15] LABS: Alanine Aminotransferase 16 U/L (0-33); Albumin Level 4.3 g/dL (3.5-5.2); Alkaline Phosphatase 100 U/L (35-105); Aspartate Amino Transferase 29 U/L (0-32); Blood Urea Nitrogen 14 mg/dL (8-23); Calcium 9.5 mg/dL (8.5-10.5); Carbon Dioxide 22 mmol/L (22-29); Chloride 99 mmol/L (98-107); Creatinine Clr Calc Pharmacy 76.9730; Globulin 2.8 g/dL (1.3-4.6); Glucose 117 mg/dL (65-115); Osmolality Calculated 284 mOsm/kg (285-295); Sodium 136 mmol/L (136-145); Total Protein 7.1 g/dL (6.6-8.7); Troponin(5th) Baseline 583 ng/L (0-10)
[2024-10-07 19:16] LABS: Anion Gap 19.2 (5-19); Potassium 4.2 mmol/L (3.5-5.1)
[2024-10-07 19:28] VITALS: BP 142/94; PULSE 71; RESP 14; O2SAT 97
[2024-10-07 19:40] VITALS: BP 133/94; PULSE 71; RESP 15; O2SAT 96
[2024-10-07 19:58] VITALS: BP 150/98; PULSE 74; RESP 19; O2SAT 95
== END 2024-10-07 18:02 ==
LOC: ER 18:02 → CCL 18:02
PROVIDERS: Family Medicine; Emergency Provider Emergency Medicine; Visit Provider Internal Medicine Cardiovascular Disease
DX: I21.3 ST elevation (STEMI) myocardial infarction of unspecified site (principal); Z53.8 Procedure and treatment not carried out for other reasons
CPT/HCPCS: 36415; 71045; 80053; 84484; 85025; 93005; 93010; J1644; J2250; J3010; J3490; J7030; J9999